=== PATIENT | male | born 1930 | race Caucasian/White ===

== ENCOUNTER 2016-11-26 04:56 | Inpatient (IN) | payer OTHER, BC ==
[2016-11-26] MEDS ORDERED: RAPID SEQUENCE INTUBATION KIT NR ONE (04:58)
--- NOTE | 2016-11-26 05:13 | PDOC ---
History of Present Illness - General History Source: EMS, [facility] Records Exam Limitations: Intubated, Unresponsive - History of Present Illness Initial Comments: 11/26/16 05:29 The patient is an 86 year old male resident of [facility], with a significant past medical history of diabetes mellitus, GI hemorrhage, chronic kidney disease, dementia, anemia, and suprapubic catheter, who presents to the emergency department BIBA unresponsive, with low oxygen saturation levels since earlier this morning. Per EMS, the patient was found in his apartment unresponsive this evening, with oxygen saturation levels at 71. [facility], the patient was alert and responsive at 03:59 this morning. Records state the patients suprapubic catheter was clogged yesterday, and a meraz catheter was inserted with little urine drainage. [place] records report the patient is on continuous oxygen at 2-3 L/min and has been very congested. The patients history is limited due to current clinical condition/ Allergies: None reported. Past Surgical History: None reported. PCP: Dr. Jon ([phone]) <Den Avalos - Last Filed: 11/26/16 05:57> <Oli Beard - Last Filed: 11/26/16 06:30> - General Chief Complaint: Respiratory Distress Stated Complaint: SOB Time Seen by Provider: 11/26/16 05:13 Past History <Den Avalos - Last Filed: 11/26/16 05:57> - Past Medical History Anemia: Yes Diabetes: Yes Disorders: Yes (suprapubic catheter) Thyroid Disease: No - Immunization History Immunization Up to Date: No - Psycho/Social/Smoking Cessation Hx Anxiety: No Suicidal Ideation: No Smoking History: Never smoked Have you smoked in the past 12 months: No Hx Alcohol Use: No Drug/Substance Use Hx: No Substance Use Type: None <Oli Beard - Last Filed: 11/26/16 06:30> - Past Medical History Allergies/Adverse Reactions: Allergies Allergy/AdvReac Type Severity Reaction Status Date / Time No Known Allergies Allergy Verified 11/26/16 05:17 Home Medications: Ambulatory Orders Ferrous Sulfate 325 mg PO BID 09/08/15 Metoprolol Tartrate 25 mg PO BID 09/08/15 Quetiapine Fumarate [Seroquel -] 25 mg PO HS 09/24/15 Ascorbic Acid [Vitamin C] 500 mg PO DAILY 12/29/15 Pantoprazole Sodium [Protonix] 40 mg PO BID 12/29/15 Acetaminophen [Tylenol] 650 mg PO PRN 03/14/16 Bisacodyl Suppository [Dulcolax Suppository -] 10 mg RC ONCE PRN 03/14/16 Magnesium Hydroxide [Milk of Magnesia] 30 ml PO PRN PRN 03/14/16 Petrolatum,White/Lanolin [Vitamin A & D Ointment] 454 gm TP BID 03/14/16 Quetiapine Fumarate [Seroquel -] 12.5 mg PO DAILY 03/14/16 Quetiapine Fumarate [Seroquel -] 25 mg PO DAILY 03/14/16 Vit A/Vitamin D3/E/Aloe V/Znox [Periguard Ointment] 1 appful TP BID 03/14/16 Nitrofurantoin Monohyd/M-Cryst [Macrobid -] 100 mg PO BID #20 capsule 05/18/16 Review of Systems - Review of Systems Able to Perform ROS?: No Comments:: 11/26/16 05:30 Unable to perform ROS due to clinical condition. <Den Avalos - Last Filed: 11/26/16 05:57> *Physical Exam - Vital Signs Last Vital Signs Temp Pulse Resp BP Pulse Ox 90 12 111/83 11/26/16 05:13 11/26/16 05:20 11/26/16 05:13 - Physical Exam Comments: 11/26/16 05:37 GENERAL: Unconcious. HEAD: No signs of trauma EYES: PERRLA, EOMI, sclera anicteric, conjunctiva clear ENT: Auricles normal inspection, hearing grossly normal, nares patent, oropharynx clear without exudates. Moist mucosa NECK: Normal ROM, supple, no lymphadenopathy, JVD, masses, or meningismus LUNGS: Shallow respiration. Bilateral rales, no wheezing or ronchi HEART: Sinus tachycardia. Normal S1 and S2, no murmurs, rubs or gallops ABDOMEN: Soft, nontender, normoactive bowel sounds. No guarding, no rebound. No masses EXTREMITIES: Currently not moving any extremities. No clubbing or cyanosis. No cords, erythema, or tenderness NEUROLOGICAL: Cranial nerves II through XII grossly intact. Responds to pain only from stimuli SKIN: Pale, does not feel warm. Dry, normal turgor, no rashes or lesions noted. <Den Avalos - Last Filed: 11/26/16 05:57> Heart Score/ECG Review - ECG Impressions Comment:: 11/26/16 05:57 Vent. Rate: 81 bpm IMPRESSION: Normal sinus rhythm with a right bundle branch block. <Den Avalos - Last Filed: 11/26/16 05:57> ED Treatment Course - LABORATORY CBC & Chemistry Diagram: 11/26/16 05:30 <Den Avalos - Last Filed: 11/26/16 05:57> - LABORATORY CBC & Chemistry Diagram: 11/26/16 06:00 11/26/16 05:30 <Oli Beard - Last Filed: 11/26/16 06:30> Medical Decision Making - Critical Care Time Total Critical Care Time (minutes): 60 Critical Care Statement: The care of this patient involved high complexity decision making to prevent further life threatening deterioration of the patient 's condition and/or to evalute & treat vital organ system(s) failure or risk of failure. - Medical Decision Making 11/26/16 05:39 Initial plan on this patient is to intubate. Patient was started on Etomidate, followed by 100 mg of succinylcholine and a 7.5 mm endotracheal tube. The CXR shows left lower and left middle lobe pneumonia. Septic protocol was followed. Nasogastric tube was passed, which reveals coffee ground aspirate. IV protonix started. Patient is blood type O-. Contacted blood bank for O- blood, because the patient is bleeding and hypotensive. Case discussed with ICU mail messenger contractor staff at 05:50. <Den Avalos - Last Filed: 11/26/16 05:57> - Critical Care Time Total Critical Care Time (minutes): 60 Critical Care Statement: The care of this patient involved high complexity decision making to prevent further life threatening deterioration of the patient 's condition and/or to evalute & treat vital organ system(s) failure or risk of failure. - Medical Decision Making 11/26/16 06:22 very critical, unconscious, responsive to painful stimuli, hypoxic 71%, no meningismus, lungs diffuse rales, abd slightly distended (beside US does not show a AAA), BP low getting blood 1 unit PRBC's (NG passed with >600cc dark blood), CXR shows large LLL and LML pneumonia, central line inserted. ABX's given. Patient was intubated on a vent. Meraz inserted. Accepted by the ICU. Discussed with Dr. Reaves. <Oli Beard - Last Filed: 11/26/16 06:30> *DC/Admit/Observation/Transfer - Attestations Scribe Attestion: 11/26/16 05:37 Documentation prepared by Den Avalos, acting as biomedical engineering technician for Oli Beard MD. <Den Avalos - Last Filed: 11/26/16 05:57> - Discharge Dispostion Admit: Yes <Oli Beard - Last Filed: 11/26/16 06:30> Diagnosis at time of Disposition: Sepsis, Pneumonia, Gastrointestinal hemorrhage - Discharge Dispostion Condition at time of disposition: Critical - Referrals Referrals: Abdulaziz Jon [Primary Care Provider] -
[2016-11-26] MEDS ORDERED: SUCCINYLCHOLINE CHLORIDE 200 MG/10 ML VIAL IVPUSH ONE (05:14)
[2016-11-26] MEDS ORDERED: ETOMIDATE 40 MG/20 ML VIAL IVPUSH ONE (05:14)
[2016-11-26] MEDS ORDERED: VANCOMYCIN 1,000 MG in DEXTROSE 5%-WATER - 250 ML IVPB ONE (05:19)
[2016-11-26] MEDS ORDERED: AZITHROMYCIN IVPB 500 MG in DEXTROSE 5%-WATER - 250 ML IVPB ONE (05:19)
[2016-11-26] MEDS ORDERED: PIPERACILLIN/TAZOB 3.375 GM/50 ML PRE-DOCKED IVPB ONE (05:20)
[2016-11-26] MEDS ORDERED: PANTOPRAZOLE SODIUM 40 MG in SODIUM CHLORIDE 100 ML IVPB ONE (05:22)
[2016-11-26] MEDS ORDERED: SODIUM CHLORIDE 500 ML IV STA ×2 (05:30→07:06)
[2016-11-26] MEDS ORDERED: VANCOMYCIN 1 GRAM (PRE-DOCKED) 250 ML IVPB ONE (05:32)
[2016-11-26] MEDS ORDERED: PANTOPRAZOLE SODIUM 100 ML IVPB ONE (05:32)
[2016-11-26] MEDS ORDERED: AZITHROMYCIN IVPB 250 ML IVPB ONE (05:32)
[2016-11-26] MEDS ORDERED: PIPERACILLIN/TAZOB 3.375 GM 50 ML IVPB ONE (05:33)
[2016-11-26] MEDS ORDERED: SODIUM CHLORIDE 1,000 ML IV STA (05:33)
[2016-11-26 06:00] LABS: ARTERIAL BLD GAS O2 SATURATION 97.1 % (90-98.9); ARTERIAL BLOOD GAS BASE EXCESS -8.3 meq/l (-2-2); ARTERIAL BLOOD GAS HCO3 16.8 meq/L (22-26); LPM/O2% 100; MECH. VENT. YES; PT. ON O2? YES; TYPE OF O2 VENT; VENT RATE 12; VT/PRESS 450
[2016-11-26] MEDS: MIDAZOLAM 100 MG in SODIUM CHLORIDE 100 ML IVPB SCH (06:00)
[2016-11-26 06:01] LABS: METHEMOGLOBIN 1.7 % (0.4-1.5)
[2016-11-26] MEDS ORDERED: NOREPINEPHRINE BITARTRATE 4 MG/4 ML ML IV ONE ×6 (06:04→21:57)
[2016-11-26 06:07] LABS: BASOPHIL 0.4 % (0-2.0); EOSINOPHIL 0.1 % (0-4.5); MCH 29.4 pg (25.7-33.7); MCHC 32.4 g/dl (32.0-35.9); MEAN CELL VOLUME 90.7 fl (80-96); MEAN PLT VOLUME 9.1 fl (7.5-11.1); NEUTROPHILS 81.2 % (42.8-82.8); PLATELET COUNT 475 K/MM3 (134-434); WHITE BLOOD COUNT 18.3 K/mm3 (4.0-10.0)
[2016-11-26 06:14] LABS: ALBUMIN 2.9 g/dl (3.4-5.0); ANION GAP 17 (8-16); BILIRUBIN,TOTAL 0.4 mg/dL (0.2-1.0); CALCIUM 9.2 mg/dL (8.5-10.1); CO2 18 mmol/L (21-32); CREATININE 3.2 mg/dL (0.7-1.3); GLUCOSE,RANDOM 138 mg/dL (74-106); SGOT/AST 15 U/L (15-37); SGPT/ALT 17 U/L (12-78); TOT PROT 6.9 g/dl (6.4-8.2)
[2016-11-26 06:16] LABS: ALK PHOS 98 U/L (45-117); TROPONIN I < 0.02 ng/ml (0.00-0.05)
--- NOTE | 2016-11-26 06:19 | CONSULT ---
Consult Consult Specialty:: Pulm/CC - History of Present Illness History of Present Illness: H&P limited due to clinical condition. Pt is an 86yr old man with PMHx of DM, dementia, PEG tube (reversed), suprapubic bladder catheter with recurrent UTIs, GI bleed and anemia. He presents from a residential unresponsive. Pt assessed in the ER. Pt intubated, agitated but poorly responsive off sedation, BP 70s/40s, HR irregular 80s with ~ 400mL coffee ground emesis from NGT, receiving PRBC and IVF. - History Source History Provided By: Medical Record Limitations to Obtaining History: Clinical Condition - Alcohol/Substance Use Hx Alcohol Use: No - Smoking History Smoking history: Never smoked Have you smoked in the past 12 months: No <Gina Jorgensen - Last Filed: 11/26/16 09:29> Home Medications <Oli Beard - Last Filed: 11/26/16 06:29> <Gina Jorgensen - Last Filed: 11/26/16 09:29> - Allergies Allergies/Adverse Reactions: Allergies Allergy/AdvReac Type Severity Reaction Status Date / Time No Known Allergies Allergy Verified 11/26/16 05:17 - Home Medications Home Medications: Ambulatory Orders Ferrous Sulfate 325 mg PO BID 09/08/15 Metoprolol Tartrate 25 mg PO BID 09/08/15 Quetiapine Fumarate [Seroquel -] 25 mg PO HS 09/24/15 Ascorbic Acid [Vitamin C] 500 mg PO DAILY 12/29/15 Pantoprazole Sodium [Protonix] 40 mg PO BID 12/29/15 Acetaminophen [Tylenol] 650 mg PO PRN 03/14/16 Bisacodyl Suppository [Dulcolax Suppository -] 10 mg RC ONCE PRN 03/14/16 Magnesium Hydroxide [Milk of Magnesia] 30 ml PO PRN PRN 03/14/16 Petrolatum,White/Lanolin [Vitamin A & D Ointment] 454 gm TP BID 03/14/16 Quetiapine Fumarate [Seroquel -] 12.5 mg PO DAILY 03/14/16 Quetiapine Fumarate [Seroquel -] 25 mg PO DAILY 03/14/16 Vit A/Vitamin D3/E/Aloe V/Znox [Periguard Ointment] 1 appful TP BID 03/14/16 Nitrofurantoin Monohyd/M-Cryst [Macrobid -] 100 mg PO BID #20 capsule 05/18/16 Family Disease History - Family Disease History Family History: Unable to Obtain <Gina Jorgensen - Last Filed: 11/26/16 09:29> Review of Systems Unable to obtain ROS, reason: KELLI <Gina Jorgensen - Last Filed: 11/26/16 09:29> Physical Exam Vital Signs: Vital Signs Temperature 99.4 F 11/26/16 05:15 Pulse Rate 95 H 11/26/16 06:20 Respiratory Rate 32 H 11/26/16 06:00 Blood Pressure 57/47 11/26/16 06:20 O2 Sat by Pulse Oximetry (%) 99 11/26/16 06:00 Labs: CBC, BMP 11/26/16 06:00 11/26/16 05:30 <Oli Beard - Last Filed: 11/26/16 06:29> Vital Signs: Initial physical assessment in the ER, assessed again in the ICU. Vital Signs Period Temp Pulse Resp BP Sys/Walton Pulse Ox Last 24 Hr 99.4 F 90-98 10-32 57-111/47-88 99-100 Intake & Output 11/23/16 11/24/16 11/25/16 11/26/16 23:59 23:59 23:59 23:59 Intake Total 2650 Output Total 50 Balance 2600 Weight 180 lb Constitutional: Yes: Mild Distress Eyes: Yes: PERRL Neck: Yes: Other (NGT with copious coffee ground emesis) Cardiovascular: Yes: Pulse Irregular, S1, S2 Respiratory: Yes: Intubated, Mechanically Ventilated, Rhonchi (L>R), Tachypnea Gastrointestinal: Yes: Abdomen, Obese, Distention, Hypoactive Bowel Sounds ( borborygmi) ...Rectal Exam: Yes: Other (pending guaiac) Renal/: Yes: Mattson Present (suprapubic and penile, <10ml each UOP) Musculoskeletal: Yes: Other (protruding hard mass on rt lower anterior rib, also on rt but smaller) Extremities: Yes: Cool Edema: Yes Edema: LUE: 1+, RUE: Trace Peripheral Pulses WNL: (weak bilateral pedal pulses) Integumentary: Yes: Other (pale, cool hands/feet) Wound/Incision: Yes: Other (rt femoral TLC) Neurological: Yes: Other (intubated, agitated) Psychiatric: Yes: Agitated Labs: CBC, BMP 11/26/16 06:00 <Gina Jorgensen - Last Filed: 11/26/16 09:29> Imaging - Results Chest X-ray: Image Reviewed <Gina Jorgensen - Last Filed: 11/26/16 09:29> Assessment/Plan Pt is an 86yr old man with PMHx including DM, dementia, PEG tube (now reversed) , suprapubic bladder catheter with recurrent UTIs, GI bleed and anemia. Now in the ICU for management of septic shock with associated respiratory failure secondary to HCAP, and metabolic acidosis in setting of TANESHA. Pulm: -Continue mechanical ventilation -SBT as able -FiO2 for saturation >94% -F/U official read of chest xray ID: HCAP, hx of proteus and ESBL in urine, both sensitive to Zosyn -Consult -F/U cultures -Empiric Vanc/Zosyn started in the ER -F/U lactic acid -f/u UA Cardiovascular -Volume resuscitate -Levophed for MAP 65-75 -f/u cardiac enzymes -f/u ekg -Hold home antihypertensives GI: GI bleed -Consult -Transfuse prn -PPI -NGT to LWS -f/u abdomen xray for distended abdomen Renal: Metabolic acidosis in setting of acute on chronic renal insufficiency -Volume resuscitate -Strict I/Os -Replete electrolytes prn -Monitor BUN/Cr -Renal dose medication Neuro -Pain management Endo: -BGM -Glycemic control Prophylactic -SCDs -Aspiration precautions <Gina Jorgensen - Last Filed: 11/26/16 09:29>
[2016-11-26] MEDS: NOREPINEPHRINE BITARTRATE 4,000 MCG in DEXTROSE 5%-WATER - 496 ML IV SCH ×4 (06:20→15:38)
[2016-11-26] MEDS ORDERED: LACTATED RINGERS SOLUTION 1,000 ML IV STA ×3 (06:54→11:31)
[2016-11-26 07:17] LABS: URINE APPEARANCE TURBID; URINE BILIRUBIN NEGATIVE (NEGATIVE); URINE COLOR AMBER; URINE GLUCOSE (UA) NEGATIVE (NEGATIVE); URINE KETONE TRACE (NEGATIVE); URINE NITRITE NEGATIVE (NEGATIVE); URINE UROBILINOGEN NEGATIVE E.U./dl (0.2-1.0)
[2016-11-26] MEDS ORDERED: ACETAMINOPHEN 1000 MG/100 ML VIAL (NON FORMULARY) IVPB PRN ×2 (07:27→17:05)
[2016-11-26 07:37] LABS: URINE BLOOD 1+ (NEGATIVE); URINE LEUK ESTERASE 3+ (NEGATIVE); URINE PROTEIN 2+ (NEGATIVE)
[2016-11-26 07:38] LABS: URINE BACTERIA MANY /hpf (NONE SEEN); URINE HYALINE CAST 20 /lpf; URINE MUCUS RARE; URINE RBC 54 /hpf (0-3); URINE WBC 856 /hpf (3-5)
[2016-11-26 08:19] LABS: MCH 28.7 pg (25.7-33.7); MCHC 32.4 g/dl (32.0-35.9); MEAN CELL VOLUME 88.7 fl (80-96); MEAN PLT VOLUME 8.2 fl (7.5-11.1); PLATELET COUNT 422 K/MM3 (134-434); RDW 15.3 % (11.9-15.9); WHITE BLOOD COUNT 25.1 K/mm3 (4.0-10.0)
[2016-11-26 08:32] LABS: INR 1.19 (0.82-1.09); PROTHROMBIN TIME (PATIENT) 13.1 SEC (9.98-11.88)
[2016-11-26 08:35] LABS: ACTIVATED PTT 29.9 SECONDS (26.9-34.4)
--- NOTE | 2016-11-26 08:37 | MSN ---
Progress Note (SOAP) - Subjective Chief Complaint: Found unresponsive with low O2 saturation History of Present Illness: Pt is unresponsive, HPI obtained from medical records. Pt is a 86 yo white male with a PMHx of DM, CKD, dementia, anemia, GI hemorrhage , and suprapubic catheter placement with recurrent UTIs, that was BIBA to the ER early this morning after being found unresponsive in his fpc apt with a low oxygen saturation of 71%. Per [place] records, the pt suprapubic catheter was clogged yesterday and subsequently a meraz catheter was placed with minimal output. Pt was intubated in the ER with BPs in the 50-70s/40s, HR in the 90s, afebrile, and a output of ~400mL coffee ground emesis via NGT. Pt is currently on IV pressers, IV sedation, and IVF. - Current Medications Current Medications: Active Medications Acetaminophen (Ofirmev Injection -) 1,000 mg IVPB ONCE PRN PRN Reason: FEVER Chlorhexidine Gluconate (Hibiclens For Decolonization -) 1 applic TP HS NATHALIA Norepinephrine Bitartrate 4, (000 mcg/ Dextrose) 500 mls @ 37.5 mls/hr IV TITR NATHALIA; 5 MCG/MIN PRN Reason: Protocol Last Admin: 11/26/16 06:20 Dose: 75 mls/hr Midazolam HCl 100 mg/ Sodium (Chloride) 100 mls @ 10 mls/hr IVPB TITR NATHALIA; 10 MG/HR PRN Reason: Protocol Last Admin: 11/26/16 06:00 Dose: 10 mls/hr Fentanyl 500 mcg/ Dextrose 100 mls @ 5 mls/hr IJ TITR NATHALIA PRN Reason: 25 MCG/HR Lactated Ringer's (Lactated Ringers Solution) 1,000 mls @ 100 mls/hr IV ASDIR NATHALIA Pantoprazole Sodium (Protonix 40mg Ivpb (Pre-Docked)) 100 mls @ 200 mls/hr IVPB BID NATHALIA Mupirocin (Bactroban Ointment (For Decolonization) -) 1 applic NS BID NATHALIA Stop: 12/01/16 09:59 - Objective Vital Signs: Vital Signs Temperature 99.1 F 11/26/16 07:30 Pulse Rate 116 H 11/26/16 07:30 Respiratory Rate 24 11/26/16 07:30 Blood Pressure 96/57 11/26/16 07:30 O2 Sat by Pulse Oximetry (%) 99 11/26/16 07:10 Constitutional: Yes: Other (Unresponsive) HENT: Yes: WNL, Atraumatic, Normocephalic. No: Epistaxis, Pharyngeal Erythema, Rhinnorhea Neck: Yes: WNL, Trachea Midline. No: Lymphadenopathy Cardiovascular: Yes: Tachycardia, S1, S2. No: JVD, Murmur Respiratory: Yes: Intubated, Mechanically Ventilated, Rhonchi (Left lung leggett) Gastrointestinal: Yes: Abdomen, Obese, Distention, Hypoactive Bowel Sounds ...Rectal Exam: Yes: Other (Pending guaiac) Genitourinary: Yes: Meraz Present (Suprapubic and penile meraz), Hematuria Extremities: Yes: Cold, Cool Edema: No (No edema in the BL LE) Integumentary: No: Petechiae, Venous Stasis Changes Neurological: Yes: Lethargy, Unresponsive, Other (Pt is unresponsive to vocal, tactile, and painful stimuli.). No: WNL, Alert, Oriented ...Motor Strength: No: WNL Psychiatric: No: WNL Labs Lab Results: Laboratory Last Values WBC 25.1 K/mm3 (4.0-10.0) H D 11/26/16 08:00 RBC 3.72 M/mm3 (4.00-5.60) L 11/26/16 08:00 Hgb 10.7 GM/dL (11.7-16.9) L 11/26/16 08:00 Hct 33.0 % (35.4-49) L 11/26/16 08:00 MCV 88.7 fl (80-96) 11/26/16 08:00 MCHC 32.4 g/dl (32.0-35.9) 11/26/16 08:00 RDW 15.3 % (11.9-15.9) 11/26/16 08:00 Plt Count 422 K/MM3 (134-434) 11/26/16 08:00 MPV 8.2 fl (7.5-11.1) 11/26/16 08:00 Neutrophils % 81.2 % (42.8-82.8) 11/26/16 06:00 Lymphocytes % 12.4 % (8-40) 11/26/16 06:00 Monocytes % 5.9 % (3.8-10.2) 11/26/16 06:00 Eosinophils % 0.1 % (0-4.5) 11/26/16 06:00 Basophils % 0.4 % (0-2.0) 11/26/16 06:00 INR 1.19 (0.82-1.09) H 11/26/16 08:00 PTT (Actin FS) 29.9 SECONDS (26.9-34.4) 11/26/16 08:00 Anticoagulation Therapy Y 11/26/16 05:14 Puncture Site Md puncture 11/26/16 05:14 ABG pH 7.30 (7.35-7.45) L 11/26/16 05:14 ABG pCO2 at Pt Temp 35.1 mmHg (35-45) 11/26/16 05:14 ABG pO2 at Pt Temp 122.0 mmHg (68-100) H 11/26/16 05:14 ABG HCO3 16.8 meq/L (22-26) L 11/26/16 05:14 ABG O2 Sat (Measured) 97.1 % (90-98.9) 11/26/16 05:14 ABG O2 Content 14.4 % vol (15-22) L 11/26/16 05:14 ABG Base Excess -8.3 meq/l (-2-2) L 11/26/16 05:14 Linden Test Not applicable 11/26/16 05:14 Carboxyhemoglobin 1.4 gm% (0.5-2.0) 11/26/16 05:15 Methemoglobin 1.7 % (0.4-1.5) H 11/26/16 05:15 O2 Delivery Device Vent 11/26/16 05:14 Oxygen Flow Rate 100 11/26/16 05:14 Vent Mode A/c 11/26/16 05:14 Vent Rate 12 11/26/16 05:14 Mechanical Rate Yes 11/26/16 05:14 PEEP 0.0 cmH2O 11/26/16 05:14 Pressure Support Vent 450 11/26/16 05:14 Sodium 149 mmol/L (136-145) H 11/26/16 05:30 Potassium 5.4 mmol/L (3.5-5.1) H 11/26/16 05:30 Chloride 114 mmol/L (98-107) H 11/26/16 05:30 Carbon Dioxide 18 mmol/L (21-32) L 11/26/16 05:30 Anion Gap 17 (8-16) H 11/26/16 05:30 BUN 54 mg/dL (7-18) H 11/26/16 05:30 Creatinine 3.2 mg/dL (0.7-1.3) H 11/26/16 05:30 Creat Clearance w eGFR 18.47 (>60) 11/26/16 05:30 Random Glucose 138 mg/dL (74-106) H 11/26/16 05:30 Lactic Acid 6.620 mmol/L (0.4-2.0) H* 11/26/16 05:30 Calcium 9.2 mg/dL (8.5-10.1) 11/26/16 05:30 Total Bilirubin 1.0 mg/dL (0.2-1.0) D 11/26/16 08:00 AST 15 U/L (15-37) 11/26/16 05:30 ALT 17 U/L (12-78) 11/26/16 05:30 Alkaline Phosphatase 98 U/L (45-117) 11/26/16 05:30 Creatine Kinase 45 IU/L (39-308) 11/26/16 05:30 Troponin I < 0.02 ng/ml (0.00-0.05) 11/26/16 05:30 Total Protein 6.9 g/dl (6.4-8.2) 11/26/16 05:30 Albumin 2.9 g/dl (3.4-5.0) L 11/26/16 05:30 Urine Color Sharron 11/26/16 07:05 Urine Appearance Turbid 11/26/16 07:05 Urine pH 5.0 (5.0-8.0) 11/26/16 07:05 Ur Specific Allen 1.020 (1.001-1.035) 11/26/16 07:05 Urine Protein 2+ (NEGATIVE) H 11/26/16 07:05 Urine Glucose (UA) Negative (NEGATIVE) 11/26/16 07:05 Urine Ketones Trace (NEGATIVE) H 11/26/16 07:05 Urine Blood 1+ (NEGATIVE) H 11/26/16 07:05 Urine Nitrite Negative (NEGATIVE) 11/26/16 07:05 Urine Bilirubin Negative (NEGATIVE) 11/26/16 07:05 Urine Urobilinogen Negative E.U./dl (0.2-1.0) 11/26/16 07:05 Ur Leukocyte Esterase 3+ (NEGATIVE) H 11/26/16 07:05 Urine RBC 54 /hpf (0-3) 11/26/16 07:05 Urine WBC 856 /hpf (3-5) 11/26/16 07:05 Ur Epithelial Cells Rare /hpf (FEW) 11/26/16 07:05 Urine Bacteria Many /hpf (NONE SEEN) 11/26/16 07:05 Hyaline Casts 20 /lpf 11/26/16 07:05 Urine Mucus Rare 11/26/16 07:05 Blood Type O POSITIVE 11/26/16 05:55 Antibody Screen Negative 11/26/16 05:30 Crossmatch See Detail 11/26/16 05:30 Imaging - Results Chest X-ray: Report Reviewed, Image Reviewed Problem List - Problems (1) GI bleed Code(s): K92.2 - GASTROINTESTINAL HEMORRHAGE, UNSPECIFIED (2) Pneumonia Code(s): J18.9 - PNEUMONIA, UNSPECIFIED ORGANISM (3) Sepsis Code(s): A41.9 - SEPSIS, UNSPECIFIED ORGANISM (4) Suprapubic catheter dysfunction Code(s): T83.018A - BREAKDOWN (MECHANICAL) OF OTHER URINARY CATHETER, INIT Qualifiers: Encounter type: initial encounter Qualified Code(s): T83.018A - Breakdown (mechanical) of other indwelling urethral catheter, initial encounter (5) Urinary tract infection Code(s): N39.0 - URINARY TRACT INFECTION, SITE NOT SPECIFIED Qualifiers: Urinary tract infection type: site unspecified Hematuria presence: without hematuria Qualified Code(s): N39.0 - Urinary tract infection, site not specified Assessment/Plan Pt is an 86 yo M with PMHx including DM, dementia, suprapubic bladder catheter with recurrent UTIs, GI bleed, and anemia. Currently in the ICU for management of septic shock with associated respiratory failure secondary to HCAP, and metabolic acidosis in setting of TANESHA. 1. Pulmonary -Cont. mechanical ventilation in order to maintain O2 sat >94% 2. ID: HCAP, UTI (Hx of ESBL sensitive to Zosyn) -IV ABX (azithromycin, zosyn, vancomycin) given in the ER -Consult -F/U urine Cx -F/U blood Cx -Repeat lactic acid 3. Metabolic acidosis secondary to TANESHA on CKD -Cont. IVF to volume resuscitate -Repeat UA -Monitor BUN/Cr -Monitor BMP, replete electrolytes as needed 4. GI bleed -Cont. NGT to LWS -Protonix 40mg IVPB -PRBCs ordered, transfuse PRN Dustin Duncan, MS3
[2016-11-26] MEDS: FENTANYL INJECTION 500 MCG in DEXTROSE 5%-WATER - 90 ML IJ SCH (08:40)
[2016-11-26] MEDS: LACTATED RINGERS SOLUTION 1,000 ML IV SCH (08:55)
[2016-11-26 09:10] VITALS: BMI 23.6
--- NOTE | 2016-11-26 10:58 | HP ---
<Dale Chowdhury - Last Filed: 11/26/16 13:47> CHIEF COMPLAINT: low oxygen saturation/unresponsive PCP: Dr. Jon ([phone]) HISTORY OF PRESENT ILLNESS: History obtained from previous notes since pt is intubated. 86 y/o M from [facility] w/PMH of DM, GI hemorrhage, ckd, dementia, anemia, suprapubic catheter presented to the ER due to being found unresponsive with O2 sat of 71%. Pt's suprapubic cath was clogged yesterday as per [place] records. Pt uses O2 at [place] continously (2-3L/min). Pt was last noted to be alert and responsive at 4 am last night. Currently pt is in ICU, intubated, sedated, and on ventilator, on pressors. In ER pt had CXR which showed LLL infiltrates, NGT placed which drained coffee ground emesis, IV protonix started. ER course was notable for: (1) Intubation, EKG, CXR (2) NGT, meraz insertion (3) PAST MEDICAL HISTORY: DM, GI hemorrhage, ckd, dementia, anemia, suprapubic catheter PAST SURGICAL HISTORY: unobtainable Social History: unobtainable Smoking: Alcohol: Drugs: Allergies No Known Allergies Allergy (Verified 11/26/16 05:17) HOME MEDICATIONS: Home Medications Medication Instructions Recorded Acetaminophen [Tylenol -] 650 mg PO Q6H PRN 11/26/16 Ascorbic Acid [Vitamin C -] 500 mg PO DAILY 11/26/16 Bisac-Evac 10 mg WI DAILY PRN 11/26/16 Ferrous Sulfate 325 mg PO DAILY 11/26/16 Magnesium Hydroxide [Milk of 30 ml PO DAILY PRN 11/26/16 Magnesia -] Metoprolol Tartrate 25 mg PO BID 11/26/16 Nitroglycerin Sublingual 0.4 mg SL PRN PRN 11/26/16 [Nitrostat -] Olanzapine 5 mg PO 0900,1300 11/26/16 Olanzapine [Zyprexa -] 5 mg PO 1700,2100 11/26/16 Omeprazole 1 cap PO 0630,1630 11/26/16 REVIEW OF SYSTEMS CONSTITUTIONAL: Absent: fever, chills, diaphoresis, generalized weakness, malaise, loss of appetite, weight change HEENT: Absent: rhinorrhea, nasal congestion, throat pain, throat swelling, difficulty swallowing, mouth swelling, ear pain, eye pain, visual changes CARDIOVASCULAR: Absent: chest pain, syncope, palpitations, irregular heart rate, lightheadedness , peripheral edema RESPIRATORY: Absent: cough, shortness of breath, dyspnea with exertion, orthopnea, wheezing, stridor, hemoptysis GASTROINTESTINAL: Absent: abdominal pain, abdominal distension, nausea, vomiting, diarrhea, constipation, melena, hematochezia GENITOURINARY: Absent: dysuria, frequency, urgency, hesitancy, hematuria, flank pain, genital pain MUSCULOSKELETAL: Absent: myalgia, arthralgia, joint swelling, back pain, neck pain SKIN: Absent: rash, itching, pallor HEMATOLOGIC/IMMUNOLOGIC: Absent: easy bleeding, easy bruising, lymphadenopathy, frequent infections ENDOCRINE: Absent: unexplained weight gain, unexplained weight loss, heat intolerance, cold intolerance NEUROLOGIC: Unresponsive Absent: headache, focal weakness or paresthesias, dizziness, unsteady gait, seizure, mental status changes, bladder or bowel incontinence PSYCHIATRIC: Absent: anxiety, depression, suicidal or homicidal ideation, hallucinations. PHYSICAL EXAMINATION Vital Signs - 24 hr 11/26/16 11/26/16 11/26/16 06:45 07:00 07:07 Temperature 99.4 F Pulse Rate 122 H Pulse Rate [ 116 H Apical] Respiratory 27 H 22 24 Rate Blood Pressure 96/59 Blood Pressure 128/69 [Right Arm] O2 Sat by Pulse 100 Oximetry (%) 11/26/16 11/26/16 11/26/16 07:10 07:30 08:00 Temperature 99.1 F 98.5 F Pulse Rate 112 H 116 H 120 H Pulse Rate [ Apical] Respiratory 24 17 Rate Blood Pressure 96/57 82/46 Blood Pressure [Right Arm] O2 Sat by Pulse 99 Oximetry (%) 11/26/16 11/26/16 11/26/16 08:45 08:46 08:48 Temperature Pulse Rate 120 H Pulse Rate [ Apical] Respiratory 17 Rate Blood Pressure 82/40 Blood Pressure [Right Arm] O2 Sat by Pulse 94 L 94 L Oximetry (%) 11/26/16 11/26/16 11/26/16 09:03 09:30 09:46 Temperature 98.8 F 98.1 F Pulse Rate 120 H 122 H 122 H Pulse Rate [ Apical] Respiratory 17 23 Rate Blood Pressure 82/40 83/58 83/58 Blood Pressure [Right Arm] O2 Sat by Pulse Oximetry (%) 11/26/16 11/26/16 10:00 10:36 Temperature 98.1 F Pulse Rate 127 H 127 H Pulse Rate [ Apical] Respiratory 32 H Rate Blood Pressure 66/31 53/43 Blood Pressure [Right Arm] O2 Sat by Pulse Oximetry (%) GENERAL: Sedated, on ventilator HEAD: Normal with no signs of trauma. BG EYES: Pupils equal, round and reactive to light, extraocular movements intact, sclera anicteric, conjunctiva clear NECK: Normal range of motion, supple without lymphadenopathy, JVD, or masses. LUNGS: Auscultated anteriorly, mechanically ventilated, rhonchi on L. HEART: Tachycardic, irregularly irregular. ABDOMEN: Soft, nontender, distented, hypoactive bowel sounds, no guarding, no rebound, no masses. LOWER EXTREMITIES: Cool to touch feet. R femoral line in place. NEUROLOGICAL: Sedated. PSYCHIATRIC: Sedated. SKIN: Warm, dry, normal turgor, no rashes or lesions noted. Laboratory Results - last 24 hr 11/26/16 11/26/16 11/26/16 07:05 08:00 08:00 WBC RBC Hgb Hct MCV MCHC RDW Plt Count MPV INR 1.19 H PTT (Actin FS) 29.9 Total Bilirubin 1.0 D Urine Color Sharron Urine Appearance Turbid Urine pH 5.0 Ur Specific Tyler 1.020 Urine Protein 2+ H Urine Glucose (UA) Negative Urine Ketones Trace H Urine Blood 1+ H Urine Nitrite Negative Urine Bilirubin Negative Urine Urobilinogen Negative Ur Leukocyte Esterase 3+ H Urine RBC 54 Urine WBC 856 Ur Epithelial Cells Rare Urine Bacteria Many Hyaline Casts 20 Urine Mucus Rare 11/26/16 08:00 WBC 25.1 H D RBC 3.72 L Hgb 10.7 L Hct 33.0 L MCV 88.7 MCHC 32.4 RDW 15.3 Plt Count 422 MPV 8.2 INR PTT (Actin FS) Total Bilirubin Urine Color Urine Appearance Urine pH Ur Specific Tyler Urine Protein Urine Glucose (UA) Urine Ketones Urine Blood Urine Nitrite Urine Bilirubin Urine Urobilinogen Ur Leukocyte Esterase Urine RBC Urine WBC Ur Epithelial Cells Urine Bacteria Hyaline Casts Urine Mucus Microbiology 11/26/16 07:30 Nasopharyngeal Swab Respiratory Virus Panel - Preliminary 11/26/16 07:30 Nasopharyngeal Swab Influenza Types A,B Antigen (BEATRIZ) - Final 11/26/16 07:30 Nasopharyngeal Swab - Final Imaging: Abd XR: Distended bowel. Possible small bowel or partial small obstruction. CXR: L sided infiltrates; NGT in place Active Medications Acetaminophen (Ofirmev Injection -) 1,000 mg IVPB ONCE PRN PRN Reason: FEVER Chlorhexidine Gluconate (Hibiclens For Decolonization -) 1 applic TP HS NATHALIA Norepinephrine Bitartrate 4, (000 mcg/ Dextrose) 500 mls @ 37.5 mls/hr IV TITR NATHALIA; 5 MCG/MIN PRN Reason: Protocol Last Admin: 11/26/16 12:30 Dose: 150 mls/hr Midazolam HCl 100 mg/ Sodium (Chloride) 100 mls @ 10 mls/hr IVPB TITR NATHALIA; 10 MG/HR PRN Reason: Protocol Last Titration: 11/26/16 10:30 Dose: 0 mg/hr Fentanyl 500 mcg/ Dextrose 100 mls @ 5 mls/hr IJ TITR NATHALIA PRN Reason: 25 MCG/HR Last Admin: 11/26/16 08:40 Dose: 5 mls/hr Lactated Ringer's (Lactated Ringers Solution) 1,000 mls @ 100 mls/hr IV ASDIR NATHALIA Last Admin: 11/26/16 08:55 Dose: 100 mls/hr Pantoprazole Sodium 80 mg/ (Sodium Chloride) 100 mls @ 10 mls/hr IVPB Q10H NATHALIA PRN Reason: 8 MG/HR Piperacillin Sod/Tazobactam Sod (Zosyn 2.25gm Ivpb (Pre-Docked)) 50 mls @ 100 mls/hr IVPB Q8H-IV NATHALIA Mupirocin (Bactroban Ointment (For Decolonization) -) 1 applic NS BID NATHALIA Stop: 12/01/16 09:59 Last Admin: 11/26/16 13:18 Dose: 1 applic ASSESSMENT/PLAN: 86 y/o M from [facility] w/PMH of DM, GI hemorrhage, ckd, dementia, anemia, suprapubic catheter presented to the ER due to being found unresponsive with O2 sat of 71%. -Severe sepsis secondary to UTI vs PNA -WBC 25.1, tachycardic -received vanco/zosyn/azithro in ER -c/w vanco/zosyn as per ID -on levophed 14 mcg/min; LR@ 100ml/hr; keep MAP>65 -UA: 3+ LE, 856 WBC; hx of proteus and ESBL in urine in past -Lactic acid: 5.255; trending down, continue to monitor -CXR shows L sided infiltrates -f/u BCx, UCx, CXR in AM; Resp Virus Panel -Rapid Flu negative -ID on board -CK-MB elevated most likely secondary to demand ischemia -Acute Respiratory failure secondary to PNA / sepsis -CXR shows L sided infiltrates -on ventilator. sedated on midazolam and fentanyl -c/w vanco/zosyn -f/u SpCx -ABG in AM, CXR in AM -sedation vacations in AM -Anemia secondary to Upper GI bleed -coffee ground aspirate via NGT -Recommend starting pt on protonix drip -Abd XR: Distended bowel. Possible small bowel or partial small obstruction. -Hgb: 10.7 currently, no baseline available in charts -received 1 unit PRBC; f/u CBC -TANESHA on CKD secondary to sepsis -BUN/Cr: 54/3.2 -No baseline Cr in charts -monitor BUN/Cr -DM -Monitor BGMs -HTN -hold anti-hypertensives (metoprolol tartrate 25 mg bid) in light of septic shock -FEN -LR @ 100 ml/hr; keep MAP>65 -hypernatremia, hyperkalemia, hyperchloremia, monitor lytes, monitor tele -NPO -Dispo: -Admit to ICU Problem List - Problem (1) GI bleed Code(s): K92.2 - GASTROINTESTINAL HEMORRHAGE, UNSPECIFIED (2) Multiple drug resistant organism (MDRO) culture positive Code(s): Z16.24 - RESISTANCE TO MULTIPLE ANTIBIOTICS (3) Pneumonia Code(s): J18.9 - PNEUMONIA, UNSPECIFIED ORGANISM (4) Sepsis Code(s): A41.9 - SEPSIS, UNSPECIFIED ORGANISM (5) Urinary tract infection Code(s): N39.0 - URINARY TRACT INFECTION, SITE NOT SPECIFIED Qualifiers: Urinary tract infection type: site unspecified Hematuria presence: without hematuria Qualified Code(s): N39.0 - Urinary tract infection, site not specified Visit type - Emergency Visit Emergency Visit: Yes ED Registration Date: 11/26/16 Care time: The patient presented to the Emergency Department on the above date and was hospitalized for further evaluation of their emergent condition. - New Patient This patient is new to me today: Yes Date on this admission: 11/26/16 - Critical Care Critical Care patient: Yes Total Critical Care Time (in minutes): 45 Critical Care Statement: The care of this patient involved high complexity decision making to prevent further life threatening deterioration of the patient 's condition and/or to evalute & treat vital organ system(s) failure or risk of failure. <Alireza Villalta - Last Filed: 11/26/16 18:49> ATTENDING PHYSICIAN STATEMENT I saw and evaluated the patient. I reviewed the resident's note and discussed the case with the resident. I agree with the resident's findings and plan as documented. SUBJECTIVE: seen and evaluated at the bedside OBJECTIVE: intubated and sedated ASSESSMENT AND PLAN: 86 y/o M from [facility] w/PMH of DM, GI hemorrhage, ckd, dementia, anemia, suprapubic catheter admitted for septic shock possibly due to SBP Septic Shock -pt remains on pressors and BP has been difficult to maintain -cont IVF -now on zosyn -follow up cultures -GI consult appreciated; recommendation is for surgical evaluation Acute bood loss anemia due to upperGI bleed -has had persistant coffee grounds in OG tube -trend Hb and transfuse as needed -GI consult appreciated; recommendation is for surgical evaluation Dispo -given age and multiple comorbidities prognosis is poor at this time
[2016-11-26 11:48] LABS: TROPONIN I 0.08 ng/ml (0.00-0.05)
[2016-11-26] MEDS ORDERED: INFLUENZA VACCINE 45 MCG/0.5 ML (MDV 16-17) IM ONE (12:00)
--- NOTE | 2016-11-26 12:16 | PN ---
Teaching Attending Note Name of Resident: Alber Rivera ATTENDING PHYSICIAN STATEMENT I saw and evaluated the patient. I reviewed the resident's note and discussed the case with the resident. I agree with the resident's findings and plan as documented. SUBJECTIVE: Patient seen and examined in the ICU. Intubated and poorly responsive. Significant dark/coffee ground material from NGT. Refractory shock on NE. Aggressive IVF AC Mode of vent. Intake & Output 11/23/16 11/24/16 11/25/16 11/26/16 23:59 23:59 23:59 23:59 Intake Total 5150 Output Total 810 Balance 4340 Weight 165 lb Last Vital Signs Temp Pulse Resp BP Pulse Ox 98.1 F 118 H 34 H 69/51 92 L 11/26/16 10:00 11/26/16 11:34 11/26/16 11:50 11/26/16 11:34 11/26/16 10:20 Active Medications Acetaminophen (Ofirmev Injection -) 1,000 mg IVPB ONCE PRN PRN Reason: FEVER Chlorhexidine Gluconate (Hibiclens For Decolonization -) 1 applic TP HS NATHALIA Norepinephrine Bitartrate 4, (000 mcg/ Dextrose) 500 mls @ 37.5 mls/hr IV TITR NATHALIA; 5 MCG/MIN PRN Reason: Protocol Last Admin: 11/26/16 11:34 Dose: 150 mls/hr Midazolam HCl 100 mg/ Sodium (Chloride) 100 mls @ 10 mls/hr IVPB TITR NATHALIA; 10 MG/HR PRN Reason: Protocol Last Titration: 11/26/16 10:30 Dose: 0 mg/hr Fentanyl 500 mcg/ Dextrose 100 mls @ 5 mls/hr IJ TITR NATHALIA PRN Reason: 25 MCG/HR Last Admin: 11/26/16 08:40 Dose: 5 mls/hr Lactated Ringer's (Lactated Ringers Solution) 1,000 mls @ 100 mls/hr IV ASDIR NATHALIA Last Admin: 11/26/16 08:55 Dose: 100 mls/hr Lactated Ringer's (Lactated Ringers Solution) 1,000 mls @ 1,000 mls/hr IV ONCE STA Stop: 11/26/16 12:28 Last Admin: 11/26/16 11:33 Dose: 1,000 mls/hr Lactated Ringer's (Lactated Ringers Solution) 1,000 mls @ 1,000 mls/hr IV ONCE STA Stop: 11/26/16 12:30 Pantoprazole Sodium 80 mg/ (Sodium Chloride) 100 mls @ 10 mls/hr IVPB Q10H NATHALIA PRN Reason: 8 MG/HR Mupirocin (Bactroban Ointment (For Decolonization) -) 1 applic NS BID NATHALIA Stop: 12/01/16 09:59 Constitutional: Yes: Intubated and poorly responsive Eyes: Yes: PERRL Neck: Yes: Other (NGT with copious coffee ground emesis) Cardiovascular: Yes: Pulse Irregular, S1, S2 Respiratory: Yes: Intubated, Mechanically Ventilated, Rhonchi (L>R), Tachypnea Gastrointestinal: Yes: Abdomen, Obese, Distention, Hypoactive Bowel Sounds ...Rectal Exam: Yes: (+) guaiac Renal/: Yes: Mattson Present (suprapubic and penile) Musculoskeletal: Yes: Other (protruding hard mass on rt lower anterior rib) Extremities: Yes: Cool/cold Edema: Yes Edema: LUE: 1+, RUE: Trace Peripheral Pulses WNL: (weak bilateral pedal pulses) Integumentary: Yes: Other (pale, cool hands/feet) Wound/Incision: Yes: Other (rt femoral TLC) Neurological: Yes: Other (poorly responsive) Labs: Laboratory Results - last 24 hr 11/26/16 11/26/16 11/26/16 05:14 05:15 05:30 WBC RBC Hgb Hct MCV MCHC RDW Plt Count MPV Neutrophils % Lymphocytes % Monocytes % Eosinophils % Basophils % Band Neutrophils Differential Comment Reactive Lymphocytes INR PTT (Actin FS) Anticoagulation Therapy Y Puncture Site Md puncture ABG pH 7.30 L ABG pCO2 at Pt Temp 35.1 ABG pO2 at Pt Temp 122.0 H ABG HCO3 16.8 L ABG O2 Sat (Measured) 97.1 ABG O2 Content 14.4 L ABG Base Excess -8.3 L Linden Test Not applicable Carboxyhemoglobin 1.4 Methemoglobin 1.7 H O2 Delivery Device Vent Oxygen Flow Rate 100 Vent Mode A/c Vent Rate 12 Mechanical Rate Yes PEEP 0.0 Pressure Support Vent 450 Sodium 149 H Potassium 5.4 H Chloride 114 H Carbon Dioxide 18 L Anion Gap 17 H BUN 54 H Creatinine 3.2 H Creat Clearance w eGFR 18.47 Random Glucose 138 H Lactic Acid Calcium 9.2 Total Bilirubin 0.4 AST 15 ALT 17 Alkaline Phosphatase 98 Creatine Kinase 45 CK-MB (CK-2) Troponin I < 0.02 Total Protein 6.9 Albumin 2.9 L Urine Color Urine Appearance Urine pH Ur Specific [place] Urine Protein Urine Glucose (UA) Urine Ketones Urine Blood Urine Nitrite Urine Bilirubin Urine Urobilinogen Ur Leukocyte Esterase Urine RBC Urine WBC Ur Epithelial Cells Urine Bacteria Hyaline Casts Urine Mucus Blood Type Antibody Screen Crossmatch 11/26/16 11/26/16 11/26/16 05:30 05:30 05:55 WBC RBC Hgb Hct MCV MCHC RDW Plt Count MPV Neutrophils % Lymphocytes % Monocytes % Eosinophils % Basophils % Band Neutrophils Differential Comment Reactive Lymphocytes INR PTT (Actin FS) Anticoagulation Therapy Puncture Site ABG pH ABG pCO2 at Pt Temp ABG pO2 at Pt Temp ABG HCO3 ABG O2 Sat (Measured) ABG O2 Content ABG Base Excess Linden Test Carboxyhemoglobin Methemoglobin O2 Delivery Device Oxygen Flow Rate Vent Mode Vent Rate Mechanical Rate PEEP Pressure Support Vent Sodium Potassium Chloride Carbon Dioxide Anion Gap BUN Creatinine Creat Clearance w eGFR Random Glucose Lactic Acid 6.620 H* Calcium Total Bilirubin AST ALT Alkaline Phosphatase Creatine Kinase CK-MB (CK-2) Troponin I Total Protein Albumin Urine Color Urine Appearance Urine pH Ur Specific [place] Urine Protein Urine Glucose (UA) Urine Ketones Urine Blood Urine Nitrite Urine Bilirubin Urine Urobilinogen Ur Leukocyte Esterase Urine RBC Urine WBC Ur Epithelial Cells Urine Bacteria Hyaline Casts Urine Mucus Blood Type O POSITIVE O POSITIVE Antibody Screen Negative Crossmatch See Detail 11/26/16 11/26/16 11/26/16 06:00 07:05 08:00 WBC 18.3 H RBC 3.48 L Hgb 10.2 L Hct 31.6 L MCV 90.7 MCHC 32.4 RDW 14.0 Plt Count 475 H MPV 9.1 Neutrophils % 81.2 Lymphocytes % 12.4 Monocytes % 5.9 Eosinophils % 0.1 Basophils % 0.4 Band Neutrophils Differential Comment Reactive Lymphocytes INR 1.19 H PTT (Actin FS) 29.9 Anticoagulation Therapy Puncture Site ABG pH ABG pCO2 at Pt Temp ABG pO2 at Pt Temp ABG HCO3 ABG O2 Sat (Measured) ABG O2 Content ABG Base Excess Linden Test Carboxyhemoglobin Methemoglobin O2 Delivery Device Oxygen Flow Rate Vent Mode Vent Rate Mechanical Rate PEEP Pressure Support Vent Sodium Potassium Chloride Carbon Dioxide Anion Gap BUN Creatinine Creat Clearance w eGFR Random Glucose Lactic Acid Calcium Total Bilirubin AST ALT Alkaline Phosphatase Creatine Kinase CK-MB (CK-2) Troponin I Total Protein Albumin Urine Color Sharron Urine Appearance Turbid Urine pH 5.0 Ur Specific [place] 1.020 Urine Protein 2+ H Urine Glucose (UA) Negative Urine Ketones Trace H Urine Blood 1+ H Urine Nitrite Negative Urine Bilirubin Negative Urine Urobilinogen Negative Ur Leukocyte Esterase 3+ H Urine RBC 54 Urine WBC 856 Ur Epithelial Cells Rare Urine Bacteria Many Hyaline Casts 20 Urine Mucus Rare Blood Type Antibody Screen Crossmatch 11/26/16 11/26/16 11/26/16 08:00 08:00 10:30 WBC 25.1 H D RBC 3.72 L Hgb 10.7 L Hct 33.0 L MCV 88.7 MCHC 32.4 RDW 15.3 Plt Count 422 MPV 8.2 Neutrophils % 80.0 Lymphocytes % 5.0 L D Monocytes % 5.0 Eosinophils % Basophils % Band Neutrophils 7.0 Differential Comment Manual diff done Reactive Lymphocytes 3 INR PTT (Actin FS) Anticoagulation Therapy Puncture Site ABG pH ABG pCO2 at Pt Temp ABG pO2 at Pt Temp ABG HCO3 ABG O2 Sat (Measured) ABG O2 Content ABG Base Excess Linden Test Carboxyhemoglobin Methemoglobin O2 Delivery Device Oxygen Flow Rate Vent Mode Vent Rate Mechanical Rate PEEP Pressure Support Vent Sodium Potassium Chloride Carbon Dioxide Anion Gap BUN Creatinine Creat Clearance w eGFR Random Glucose Lactic Acid Calcium Total Bilirubin 1.0 D AST ALT Alkaline Phosphatase Creatine Kinase 252 D CK-MB (CK-2) 10.638 H Troponin I 0.08 H D Total Protein Albumin Urine Color Urine Appearance Urine pH Ur Specific [place] Urine Protein Urine Glucose (UA) Urine Ketones Urine Blood Urine Nitrite Urine Bilirubin Urine Urobilinogen Ur Leukocyte Esterase Urine RBC Urine WBC Ur Epithelial Cells Urine Bacteria Hyaline Casts Urine Mucus Blood Type Antibody Screen Crossmatch 11/26/16 10:30 WBC RBC Hgb Hct MCV MCHC RDW Plt Count MPV Neutrophils % Lymphocytes % Monocytes % Eosinophils % Basophils % Band Neutrophils Differential Comment Reactive Lymphocytes INR PTT (Actin FS) Anticoagulation Therapy Puncture Site ABG pH ABG pCO2 at Pt Temp ABG pO2 at Pt Temp ABG HCO3 ABG O2 Sat (Measured) ABG O2 Content ABG Base Excess Linden Test Carboxyhemoglobin Methemoglobin O2 Delivery Device Oxygen Flow Rate Vent Mode Vent Rate Mechanical Rate PEEP Pressure Support Vent Sodium Potassium Chloride Carbon Dioxide Anion Gap BUN Creatinine Creat Clearance w eGFR Random Glucose Lactic Acid 5.255 H* Calcium Total Bilirubin AST ALT Alkaline Phosphatase Creatine Kinase CK-MB (CK-2) Troponin I Total Protein Albumin Urine Color Urine Appearance Urine pH Ur Specific [place] Urine Protein Urine Glucose (UA) Urine Ketones Urine Blood Urine Nitrite Urine Bilirubin Urine Urobilinogen Ur Leukocyte Esterase Urine RBC Urine WBC Ur Epithelial Cells Urine Bacteria Hyaline Casts Urine Mucus Blood Type Antibody Screen Crossmatch Assessment/Plan MOF Acute Respiratory Failure Suspected Aspiration Pneumonitis GI bleed Bowel Obstruction (?) Ischemic Bowel UTI Septic Shock TANESHA Lactic acidosis PLAN: Surgical evaluation GI evaluation Transfusional support Aggressive IVF ID evaluation Follow ABG Howard-culture PPI FFP Overall prognosis appears grave for meaningful recovery. Dr Garnett CCTime 35"
[2016-11-26] MEDS: MUPIROCIN 2% TOPICAL OINTMENT FOR DECOLONIZATION NS SCH ×2 (13:18→22:30)
--- NOTE | 2016-11-26 13:28 | PN ---
Progress Note, Physician Chief Complaint: ID Full note dictated "Sepsis syndrome" - Current Medication List Current Medications: Active Medications Acetaminophen (Ofirmev Injection -) 1,000 mg IVPB ONCE PRN PRN Reason: FEVER Chlorhexidine Gluconate (Hibiclens For Decolonization -) 1 applic TP HS NATHALIA Norepinephrine Bitartrate 4, (000 mcg/ Dextrose) 500 mls @ 37.5 mls/hr IV TITR NATHALIA; 5 MCG/MIN PRN Reason: Protocol Last Admin: 11/26/16 12:30 Dose: 150 mls/hr Midazolam HCl 100 mg/ Sodium (Chloride) 100 mls @ 10 mls/hr IVPB TITR NATHALIA; 10 MG/HR PRN Reason: Protocol Last Titration: 11/26/16 10:30 Dose: 0 mg/hr Fentanyl 500 mcg/ Dextrose 100 mls @ 5 mls/hr IJ TITR NATHALIA PRN Reason: 25 MCG/HR Last Admin: 11/26/16 08:40 Dose: 5 mls/hr Lactated Ringer's (Lactated Ringers Solution) 1,000 mls @ 100 mls/hr IV ASDIR NATHALIA Last Admin: 11/26/16 08:55 Dose: 100 mls/hr Pantoprazole Sodium 80 mg/ (Sodium Chloride) 100 mls @ 10 mls/hr IVPB Q10H NATHALIA PRN Reason: 8 MG/HR Mupirocin (Bactroban Ointment (For Decolonization) -) 1 applic NS BID NATHALIA Stop: 12/01/16 09:59 Last Admin: 11/26/16 13:18 Dose: 1 applic - Objective Vital Signs: Vital Signs Temperature 97.8 F 11/26/16 13:00 Pulse Rate 135 H 11/26/16 13:00 Respiratory Rate 33 H 11/26/16 13:00 Blood Pressure 90/70 11/26/16 13:00 O2 Sat by Pulse Oximetry (%) 92 L 11/26/16 10:20 Constitutional: Yes: Other (Intubated Presssor support) Labs: CBC, BMP 11/26/16 08:00 INR, PTT INR 1.19 (0.82-1.09) H 11/26/16 08:00 Problem List - Problems (1) Pneumonia Code(s): J18.9 - PNEUMONIA, UNSPECIFIED ORGANISM (2) Sepsis Code(s): A41.9 - SEPSIS, UNSPECIFIED ORGANISM (3) Urinary tract infection Code(s): N39.0 - URINARY TRACT INFECTION, SITE NOT SPECIFIED Qualifiers: Urinary tract infection type: site unspecified Hematuria presence: without hematuria Qualified Code(s): N39.0 - Urinary tract infection, site not specified (4) Multiple drug resistant organism (MDRO) culture positive Code(s): Z16.24 - RESISTANCE TO MULTIPLE ANTIBIOTICS Assessment/Plan Microbiology 09/08/15 08:45 Urine - Urine Suprapubic Urine Culture - Final Escherichia Coli Esbl Musculoskeletal Physician 05/18/16 01:40 Urine - Urine Meraz Urine Culture - Final Proteus Mirabilis 11/26/16 07:30 Nasopharyngeal Swab Influenza Types A,B Antigen (BEATRIZ) - Final 11/26/16 07:30 Nasopharyngeal Swab - Final Laboratory Tests 11/26/16 11/26/16 11/26/16 05:14 05:30 05:30 WBC Hgb Hct Plt Count Neutrophils % Band Neutrophils INR Puncture Site Md puncture ABG pH 7.30 L ABG pO2 at Pt Temp 122.0 H Oxygen Flow Rate 100 BUN 54 H Creatinine 3.2 H Creat Clearance w eGFR 18.47 Lactic Acid 6.620 H* CK-MB (CK-2) Troponin I < 0.02 Ur Leukocyte Esterase Urine RBC Urine Bacteria 11/26/16 11/26/16 11/26/16 07:05 08:00 08:00 WBC 25.1 H D Hgb 10.7 L Hct 33.0 L Plt Count 422 Neutrophils % 80.0 Band Neutrophils 7.0 INR 1.19 H Puncture Site ABG pH ABG pO2 at Pt Temp Oxygen Flow Rate BUN Creatinine Creat Clearance w eGFR Lactic Acid CK-MB (CK-2) Troponin I Ur Leukocyte Esterase 3+ H Urine RBC 54 Urine Bacteria Many 11/26/16 11/26/16 10:30 10:30 WBC Hgb Hct Plt Count Neutrophils % Band Neutrophils INR Puncture Site ABG pH ABG pO2 at Pt Temp Oxygen Flow Rate BUN Creatinine Creat Clearance w eGFR Lactic Acid 5.255 H* CK-MB (CK-2) 10.638 H Troponin I Ur Leukocyte Esterase Urine RBC Urine Bacteria Assessment Sepsis syndrome Pneumonia Urinary infection History of multidrug resistant organism Respiratory failure Urine meraz and SP cath Plan Vanco Zosyn adjusted for Cr Trent Reyes MD
--- NOTE | 2016-11-26 14:43 | CON.GI ---
Consult Consult Specialty:: GI Referred by:: Hospitalists Reason for Consultation:: Coffee grounds from NGT - History of Present Illness Chief Complaint: Patient non verbal. History per chart History of Present Illness: 86M transferred from [place] to [facility] ER for evaluation of unresponsiveness and low oxygen saturations. Found hypotensive. had NG tube placed. Noted coffee ground aspirate. Called for GI bleed. Per ICU nurse, 2L of coffee ground fluid suctioned from NGT and abdomen was distended. AXR performed in the ER revealed distended bowel loops raising suspicion for SBO/PSBO. Called due to concern of GI bleed. No melena reported. Patient remains hypotensive. 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 surgery - Alcohol/Substance Use Hx Alcohol Use: No - Smoking History Smoking history: Never smoked Have you smoked in the past 12 months: No - Social History Usual Living Arrangement: Shelter History of Recent Travel: No Home Medications - Allergies Allergies/Adverse Reactions: Allergies Allergy/AdvReac Type Severity Reaction Status Date / Time No Known Allergies Allergy Verified 11/26/16 05:17 - Home Medications Home Medications: Ambulatory Orders Acetaminophen [Tylenol -] 650 mg PO Q6H PRN 11/26/16 Ascorbic Acid [Vitamin C -] 500 mg PO DAILY 11/26/16 Bisac-Evac 10 mg NV DAILY PRN 11/26/16 Calcium Carbonate [Calcium] 1,250 mg PO BID 11/26/16 Econazole Nitrate 1% [Spectazole 1%] 1 applic TP BID 11/26/16 Ferrous Sulfate 325 mg PO DAILY 11/26/16 Magnesium Hydroxide [Milk of Magnesia -] 30 ml PO DAILY PRN 11/26/16 Metoprolol Tartrate 25 mg PO BID 11/26/16 Nitroglycerin Sublingual [Nitrostat -] 0.4 mg SL PRN PRN 11/26/16 Olanzapine 5 mg PO 0900,1300 11/26/16 Olanzapine [Zyprexa -] 5 mg PO 1700,2100 11/26/16 Omeprazole 1 cap PO 0630,1630 11/26/16 Oxybutynin Chloride [Oxybutynin Chloride ER] 10 mg PO DAILY 11/26/16 Polyethylene Glycol 3350 [Miralax 119 gm Btl -] 17 grams PO DAILY PRN 11/26/16 Family Disease History - Family Disease History Family History: Unable to Obtain Review of Systems Unable to obtain ROS, reason: patient non-verbal Physical Exam-GI Vital Signs: Vital Signs Temperature 97.8 F 11/26/16 13:00 Pulse Rate 135 H 11/26/16 13:00 Respiratory Rate 33 H 11/26/16 13:00 Blood Pressure 90/70 11/26/16 13:00 O2 Sat by Pulse Oximetry (%) 92 L 11/26/16 10:20 Constitutional: Yes: Calm Eyes: No: Sclera Icterus Cardiovascular: Yes: Tachycardia Respiratory: Yes: Diminished (at bases, poor insp effort) Gastrointestinal Inspection: Yes: Distention, Hernia (reducible ventral hernia just cephalad to the umbilicus) ...Auscultate: Yes: Hypoactive Bowel Sounds ...Percussion: Yes: Tympanitic ...Rectal Exam: Yes: Other (guzman stool, no blood, no melena) Edema: No (no LE edema) Neurological: Yes: Unresponsive Labs: CBC, BMP 11/26/16 08:00 INR, PTT INR 1.19 (0.82-1.09) H 11/26/16 08:00 Assessment/Plan Coffee grounds from NGT: I do not suspect the 2L of coffee ground gastric content to be secondary to a primary bleed event. Given physical and radiographic findings, I suspect the patient has a small bowel obstruction / ileus and likely aspirated. He is hypotensive and critically ill. I advise: 1. Surgical consult 2. NGT to low wall suction 3. When stable enough CT scan of the abdomen and pelvis with contrast through NGT 4. Advance directives be clarified with patient's family / care takers be clarified and level of aggressiveness of care be established 5. Protonix 40mg IVPB for now
[2016-11-26] MEDS: PANTOPRAZOLE SODIUM 80 MG in SODIUM CHLORIDE 100 ML IVPB SCH ×2 (15:33→23:30)
[2016-11-26 16:32] LABS: MCH 29.2 pg (25.7-33.7); MCHC 33.3 g/dl (32.0-35.9); MEAN CELL VOLUME 87.6 fl (80-96); MEAN PLT VOLUME 8.5 fl (7.5-11.1); PLATELET COUNT 380 K/MM3 (134-434); RDW 15.8 % (11.9-15.9); WHITE BLOOD COUNT 8.2 K/mm3 (4.0-10.0)
--- NOTE | 2016-11-26 17:12 | PN ---
Progress Note, Physician History of Present Illness: patient seen and examined at bedside in the ICU - Current Medication List Current Medications: Active Medications Acetaminophen (Ofirmev Injection -) 1,000 mg IVPB ONCE PRN PRN Reason: FEVER Acetaminophen (Ofirmev Injection -) 1,000 mg IVPB Q6H PRN PRN Reason: FEVER OR PAIN Stop: 11/27/16 11:06 Chlorhexidine Gluconate (Hibiclens For Decolonization -) 1 applic TP HS NATHALIA Norepinephrine Bitartrate 4, (000 mcg/ Dextrose) 500 mls @ 37.5 mls/hr IV TITR NATHALIA; 5 MCG/MIN PRN Reason: Protocol Last Admin: 11/26/16 15:38 Dose: 150 mls/hr Midazolam HCl 100 mg/ Sodium (Chloride) 100 mls @ 10 mls/hr IVPB TITR NATHALIA; 10 MG/HR PRN Reason: Protocol Last Titration: 11/26/16 10:30 Dose: 0 mg/hr Fentanyl 500 mcg/ Dextrose 100 mls @ 5 mls/hr IJ TITR NATHALIA PRN Reason: 25 MCG/HR Last Admin: 11/26/16 08:40 Dose: 5 mls/hr Lactated Ringer's (Lactated Ringers Solution) 1,000 mls @ 100 mls/hr IV ASDIR NATHALIA Last Admin: 11/26/16 08:55 Dose: 100 mls/hr Pantoprazole Sodium 80 mg/ (Sodium Chloride) 100 mls @ 10 mls/hr IVPB Q10H NATHALIA PRN Reason: 8 MG/HR Last Admin: 11/26/16 15:33 Dose: 10 mls/hr Piperacillin Sod/Tazobactam Sod (Zosyn 2.25gm Ivpb (Pre-Docked)) 50 mls @ 100 mls/hr IVPB Q8H-IV NATHALIA Mupirocin (Bactroban Ointment (For Decolonization) -) 1 applic NS BID NATHALIA Stop: 12/01/16 09:59 Last Admin: 11/26/16 13:18 Dose: 1 applic - Objective Vital Signs: Vital Signs Temperature 99.0 F 11/26/16 17:00 Pulse Rate 117 H 11/26/16 17:00 Respiratory Rate 23 11/26/16 17:00 Blood Pressure 56/38 11/26/16 17:00 O2 Sat by Pulse Oximetry (%) 92 L 11/26/16 10:20 Constitutional: Yes: Other (intubated sedated overbreathing the ventilator) Eyes: Yes: Conjunctiva Clear HENT: Yes: Atraumatic Neck: Yes: Trachea Midline Cardiovascular: Yes: Tachycardia Respiratory: Yes: Diminished, Intubated, Mechanically Ventilated, Rhonchi Gastrointestinal: Yes: Abdomen, Obese, Distention, Palpable Mass (likely an umbilical hernia) ...Rectal Exam: Yes: Guaiac Positive Genitourinary: Yes: Other (suprapubic cathter in place) Extremities: Yes: Cool Edema: No Neurological: Yes: Other (sedated) Labs: CBC, BMP 11/26/16 15:45 INR, PTT INR 1.19 (0.82-1.09) H 11/26/16 08:00 - ....Imaging Chest X-ray: Report Reviewed, Image Reviewed X-ray: Report Reviewed, Image Reviewed (abdominal) Assessment/Plan 86M with multiple medical problems presents to the ED Pt is an 86yr old man with PMHx including DM, dementia, PEG tube (now reversed) , suprapubic bladder catheter with recurrent UTIs, GI bleed and anemia. Now in the ICU for management of septic shock with associated respiratory failure secondary to HCAP, and metabolic acidosis in setting of TANESHA. Sepsis secondary to pneumonia vs UTI. 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 likely source of sepsis is health care acquired pneumonia. Pneumonia also likely cause for patient's acute hypoxic respiratory failure. hx of proteus and ESBL in urine, both sensitive to Zosyn. Leuokocystosis multiorgan failure Lactic acidosis could be due to ischemic bowel continue ventilatory support Wean FiO2 as tolerated spontaneous breathing trial when hemodynamically stable continue pressors for BP support f/u cultures ID consult appreciated continue vanco/zosyn vanco level in AM trend lactic acid. patient has lactic acidosis/Metabolic acidosis continue fentanyl gtt for pain control hold off on steroids for now repeat CXR in AM Cardiovascular hold antihypertensives at this time patient is hypotensive and in septic shock fluid resuscitation will eventually need a TLC for CVP monitoring GI: GI bleed, SBO vs partial SBO transfuse PRN trend CBC so far Hb stable has coffee ground emesis from NG tube trend Abdominal XR will repeat in AM GI consult appreciated protonix gtt will need CT scan with PO/IV contrast when hemodynamically stable surgery consult Acute on chronic renal failure treat underlying sepsis Volume resuscitate Strict I/Os Replete electrolytes prn Monitor BUN/Cr Renally dose medications DM: BGM q6h ISS PPx: SCDs protonix PT consult when stable and can participate FEN: LR @ 100ml/hr with boluses PRN hyperkalemia/hypernatremia NPO for now Grave prognosis. very poor chance for any meaningful recovery this was discussed with daughter HCP appointed by law need clarification pallitave care on board ethics committee consult
[2016-11-26] MEDS: PIPERACILLIN/TAZOB 2.25 GM 50 ML IVPB SCH (17:41)
--- NOTE | 2016-11-26 18:55 | CONS ---
DATE OF CONSULTATION: 11/26/2016 This is an 86-year-old male who can offer no history as he was brought from the care home unresponsive. He required intubation and was found to be hypotensive, requiring pressors. The working diagnosis is sepsis. Additionally, while currently intubated, he was noted to have coffee-ground emesis from his nasogastric tube with a large NG output noted. Antibiotic with vancomycin and Zosyn was given for suspected sepsis with pneumonia. He has a suprapubic Mattson catheter and has had an ESBL in the past, although his most recent urine cultures had Proteus, which was sensitive. Currently the patient is in extremis on a ventilator requiring pressor support with high O2 saturations. Past medical history includes urinary tract infection, suprapubic Mattson catheter, hypertension, dementia, anemia, chronic kidney disease, diabetes mellitus. ALLERGY: None known. MEDICATIONS: Iron, metoprolol, Seroquel, Protonix. SOCIAL HISTORY: Never smoked. No history of alcohol use. retirement resident. REVIEW OF SYSTEMS: Respiratory: No cough, shortness of breath. Cardiac: No history of chest pain, palpitations, syncope, murmur. Gastrointestinal: History of GI bleeding. No abdominal pain, vomiting, or diarrhea noted. Genitourinary: Suprapubic Mattson catheter. No gross hematuria noted. PHYSICAL EXAMINATION: General: An elderly male, intubated, in severe distress. Vital Signs: Temperature 97.8, pulse 135, blood pressure 90/70, respirations 13. HEENT: Endotracheal tube. Lungs: Long shallow respirations. Bilateral rales. No wheezing or rhonchi. Heart: S1, S2. Tachycardic. No murmur, rub, gallop. Abdomen: Soft, nontender. Normoactive bowel sounds. No guarding, no rebound, no mass. Extremities: Not moving any extremities. No clubbing or cyanosis. Neurological: Cranial nerves grossly intact. Genitourinary: Suprapubic Mattson catheter noted. White count of 18.3, now 25.1, hemoglobin 10.7, platelets 422, with a left shift. INR of 1.19. AB.30, 35, 122, 100% oxygen flow. BUN 54, creatinine 3.2, lactic acid 6.6. CK-MB 10.6, TNI less than 0.02. Urinalysis with 54 WBCs, 856 WBCs, and many bacteria. Chest x-ray was reviewed, shows left-sided infiltrate. ASSESSMENT: Septic shock, multiorgan failure, history of resistant organism with extended-spectrum beta lactamase Escherichia coli, pneumonia, urinary tract infection, suprapubic Mattson catheter, diabetes mellitus. PLAN: Maintain contact isolation pending cultures of blood, urine and sputum. He has been given vancomycin and will continue him on Zosyn 2.25 g q.8 hours pending cultures. FREDA OSMAN M.D. MIGUEL [id number]
[2016-11-26] MEDS ORDERED: VASOPRESSIN 50 UNITS in SODIUM CHLORIDE 97.5 ML IVPB SCH (20:00)
[2016-11-26] MEDS ORDERED: VASOPRESSIN 20 UNITS/ML VIAL IV ONE (20:01)
[2016-11-26] MEDS ORDERED: PHENYLEPHRINE HCL 10 MG/1 ML SINGLE DOSE VIAL ONE ×2 (20:23→21:57)
[2016-11-26] MEDS ORDERED: LACTATED RINGERS SOLUTION 250 ML IV STA (20:35)
[2016-11-26] MEDS: PHENYLEPHRINE HCL 20,000 MCG in SODIUM CHLORIDE 248 ML IVPB SCH (20:40)
[2016-11-26 21:32] LABS: BASOPHIL 0.2 % (0-2.0); EOSINOPHIL 0.1 % (0-4.5); MCH 28.6 pg (25.7-33.7); MCHC 32.4 g/dl (32.0-35.9); MEAN CELL VOLUME 88.3 fl (80-96); MEAN PLT VOLUME 7.9 fl (7.5-11.1); NEUTROPHILS 69.9 % (42.8-82.8); PLATELET COUNT 311 K/MM3 (134-434); RDW 15.9 % (11.9-15.9); WHITE BLOOD COUNT 7.4 K/mm3 (4.0-10.0)
[2016-11-26] MEDS ORDERED: PANTOPRAZOLE SODIUM 100 ML IVPB SCH (22:00)
[2016-11-26 22:32] LABS: ALBUMIN 1.8 g/dl (3.4-5.0); BILIRUBIN,TOTAL 0.5 mg/dL (0.2-1.0); CALCIUM 7.2 mg/dL (8.5-10.1); CREATININE 3.5 mg/dL (0.7-1.3); MAGNESIUM 1.3 mg/dL (1.8-2.4); PHOSPHOROUS 1.3 mg/dL (2.5-4.9); TOT PROT 4.1 g/dl (6.4-8.2)
[2016-11-26] MEDS: CHLORHEXIDINE GLUCONATE 4% CLEANSER FOR DECOLONIZATION TP SCH (22:50)
[2016-11-27] MEDS ORDERED: MAGNESIUM SULF 50% (8.12 MEQ/2 ML-1 GM VIAL) IVPB ONE (00:14)
[2016-11-27] MEDS ORDERED: PHENYLEPHRINE HCL 10 MG/1 ML SINGLE DOSE VIAL ONE ×5 (00:23→20:58)
--- NOTE | 2016-11-27 00:26 | EKG ---
Test Reason : Blood Pressure : / mmHG Vent. Rate : 094 BPM Atrial Rate : 094 BPM P-R Int : 156 ms QRS Dur : 118 ms QT Int : 372 ms P-R-T Axes : 003 022 004 degrees QTc Int : 465 ms NORMAL SINUS RHYTHM RIGHT BUNDLE BRANCH BLOCK POSSIBLE INFERIOR INFARCT , AGE UNDETERMINED ABNORMAL ECG NO PREVIOUS ECGS AVAILABLE Confirmed by DORON KING, RICK ([id number]) on 11/27/2016 12:26:03 AM Referred By: Confirmed By:RICK SAL MD
[2016-11-27] MEDS: FENTANYL INJECTION 500 MCG in DEXTROSE 5%-WATER - 90 ML IJ SCH ×3 (00:30→23:00)
[2016-11-27] MEDS ORDERED: MAGNESIUM SULF 50% (8.12 MEQ/2 ML-1 GM VIAL) ONE (00:33)
[2016-11-27] MEDS ORDERED: SODIUM PHOSPHATE - 15 MM in DEXTROSE 5%-WATER - 250 ML IVPB ONE (00:45)
[2016-11-27] MEDS: INSULIN SLIDING SCALE (NOVOLOG) 1 VIAL SQ SCH ×6 (01:00→23:37)
[2016-11-27] MEDS: PIPERACILLIN/TAZOB 2.25 GM 50 ML IVPB SCH ×3 (01:05→17:16)
[2016-11-27 05:42] LABS: BASOPHIL 0.7 % (0-2.0); EOSINOPHIL 0.1 % (0-4.5); MCH 28.9 pg (25.7-33.7); MEAN CELL VOLUME 87.8 fl (80-96); MEAN PLT VOLUME 7.9 fl (7.5-11.1); NEUTROPHILS 80.1 % (42.8-82.8); PLATELET COUNT 293 K/MM3 (134-434); WHITE BLOOD COUNT 14.1 K/mm3 (4.0-10.0)
[2016-11-27 06:05] LABS: ALBUMIN 1.7 g/dl (3.4-5.0); MAGNESIUM 1.3 mg/dL (1.8-2.4); PHOSPHOROUS 2.3 mg/dL (2.5-4.9)
[2016-11-27 06:07] LABS: BILIRUBIN,TOTAL 0.5 mg/dL (0.2-1.0); CREATININE 3.8 mg/dL (0.7-1.3); TOT PROT 4.2 g/dl (6.4-8.2); TROPONIN I 0.41 ng/ml (0.00-0.05)
[2016-11-27 06:14] LABS: CALCIUM 6.8 mg/dL (8.5-10.1)
[2016-11-27] MEDS ORDERED: NOREPINEPHRINE BITARTRATE 4 MG/4 ML ML IV ONE ×4 (06:28→20:58)
[2016-11-27] MEDS: NOREPINEPHRINE BITARTRATE 4,000 MCG in DEXTROSE 5%-WATER - 496 ML IV SCH ×4 (06:30→17:13)
[2016-11-27] MEDS: MIDAZOLAM 100 MG in SODIUM CHLORIDE 100 ML IVPB SCH (06:31)
[2016-11-27] MEDS: LACTATED RINGERS SOLUTION 1,000 ML IV SCH ×3 (06:32→23:00)
[2016-11-27 07:30] LABS: ARTERIAL BLD GAS O2 SATURATION 87.9 % (90-98.9); ARTERIAL BLOOD GAS BASE EXCESS -11.6 meq/l (-2-2); ARTERIAL BLOOD GAS HCO3 14.1 meq/L (22-26)
[2016-11-27 07:31] LABS: ALLENS TEST POSITIVE; ART PUNCT SITE RIGHT RADIAL; LPM/O2% 100; MECH. VENT. YES; PT. ON O2? YES; TYPE OF O2 VENT; VENT RATE 16; VT/PRESS 425
[2016-11-27 07:32] LABS: ARTERIAL BLOOD GAS pH 7.26 (7.35-7.45)
--- NOTE | 2016-11-27 08:13 | MSN ---
Progress Note (SOAP) - Subjective Chief Complaint: Found unresponsive with low O2 saturation History of Present Illness: Pt is unresponsive, HPI obtained from medical records. Pt is a 86 yo white male with a PMHx of DM, CKD, dementia, anemia, GI hemorrhage , and suprapubic catheter placement with recurrent UTIs, that was BIBA to the ER early this morning after being found unresponsive in his [facility]p apt with a low oxygen saturation of 71%. Per [facility] records, the pt suprapubic catheter was clogged yesterday and subsequently a meraz catheter was placed with minimal output. Pt was intubated in the ER with BPs in the 50-70s/40s, HR in the 90s, afebrile, and a output of ~400mL coffee ground emesis via NGT. Pt is currently on IV pressors, IV sedation, and IVF. Phenylephrine 100 mcg/hr, NE 30 mcg/hr, Fentanyl 25 mcg/hr, LRs 100 ml/hr. Pt was taken off Versed yesterday. Nurse measured BP with manual cuff and doppler showing systolic in the 50s. - Current Medications Current Medications: Active Medications Acetaminophen (Ofirmev Injection -) 1,000 mg IVPB ONCE PRN PRN Reason: FEVER Chlorhexidine Gluconate (Hibiclens For Decolonization -) 1 applic TP HS NATHALIA Last Admin: 11/26/16 22:50 Dose: 1 applic Norepinephrine Bitartrate 4, (000 mcg/ Dextrose) 500 mls @ 37.5 mls/hr IV TITR NATHALIA; 5 MCG/MIN PRN Reason: Protocol Last Admin: 11/27/16 06:30 Dose: 225 mls/hr Midazolam HCl 100 mg/ Sodium (Chloride) 100 mls @ 10 mls/hr IVPB TITR NATHALIA; 10 MG/HR PRN Reason: Protocol Last Admin: 11/27/16 06:31 Dose: Not Given Fentanyl 500 mcg/ Dextrose 100 mls @ 5 mls/hr IJ TITR NATHALIA PRN Reason: 25 MCG/HR Last Admin: 11/27/16 00:30 Dose: 5 mls/hr Lactated Ringer's (Lactated Ringers Solution) 1,000 mls @ 100 mls/hr IV ASDIR NATHALIA Last Admin: 11/27/16 06:32 Dose: 100 mls/hr Pantoprazole Sodium 80 mg/ (Sodium Chloride) 100 mls @ 10 mls/hr IVPB Q10H NATHALIA PRN Reason: 8 MG/HR Last Admin: 11/26/16 23:30 Dose: 10 mls/hr Piperacillin Sod/Tazobactam Sod (Zosyn 2.25gm Ivpb (Pre-Docked)) 50 mls @ 100 mls/hr IVPB Q8H-IV NATHALIA Last Admin: 11/27/16 01:05 Dose: 100 mls/hr Vasopressin 50 units/ Sodium (Chloride) 100 mls @ 4 mls/hr IVPB ASDIR NATHALIA; 2 UNITS/HR PRN Reason: Protocol Last Admin: 11/26/16 20:50 Dose: Not Given Phenylephrine HCl 20,000 mcg/ (Sodium Chloride) 250 mls @ 75 mls/hr IVPB ASDIR NATHALIA; 100 MCG/MIN PRN Reason: Protocol Last Admin: 11/26/16 20:40 Dose: 75 mls/hr Insulin Aspart (Novolog Vial Sliding Scale -) 1 vial SQ Q6HPO NATHALIA PRN Reason: Protocol Last Admin: 11/27/16 06:30 Dose: Not Given Mupirocin (Bactroban Ointment (For Decolonization) -) 1 applic NS BID NATHALIA Stop: 12/01/16 09:59 Last Admin: 11/26/16 22:30 Dose: 1 applic - Objective Vital Signs: Vital Signs Temperature 98.4 F 11/27/16 12:43 Pulse Rate 106 H 11/27/16 15:28 Respiratory Rate 31 H 11/27/16 14:59 Blood Pressure 66/40 11/27/16 15:28 O2 Sat by Pulse Oximetry (%) 90 L 11/27/16 15:00 HENT: Yes: WNL, Atraumatic, Normocephalic Neck: Yes: WNL, Trachea Midline Cardiovascular: Yes: Tachycardia, Pulse Irregular, S1, S2. No: JVD Respiratory: Yes: Intubated, Mechanically Ventilated, Rhonchi (L>R), Tachypnea Gastrointestinal: Yes: Abdomen, Obese, Distention, Hypoactive Bowel Sounds (No bowel sounds auscultated in 4/4 quadrants) Genitourinary: Yes: Meraz Present (Suprapubic and meraz w/ minimal urine output) Musculoskeletal: Yes: Muscle Weakness Extremities: Yes: Cold, Cool, Delayed Capillary Refill Peripheral Pulses WNL: No Peripheral Pulses: Left Radial: 1+, Right Radial: 1+, Left Doralis Pedis: 0, Right Dorsalis Pedis: 0 Edema: RUE: Trace Neurological: Yes: Unresponsive. No: WNL, Alert, Oriented ...Motor Strength: No: WNL Psychiatric: Yes: Other (Unresponsive). No: WNL Labs Lab Results: CBC, BMP 11/27/16 05:20 11/27/16 05:20 Imaging - Results Chest X-ray: Report Reviewed, Image Reviewed X-ray: Report Reviewed, Image Reviewed Problem List - Problems (1) GI bleed Code(s): K92.2 - GASTROINTESTINAL HEMORRHAGE, UNSPECIFIED (2) Pneumonia Code(s): J18.9 - PNEUMONIA, UNSPECIFIED ORGANISM (3) Sepsis Code(s): A41.9 - SEPSIS, UNSPECIFIED ORGANISM Qualifiers: Sepsis type: sepsis due to unspecified organism Qualified Code(s): A41.9 - Sepsis, unspecified organism (4) Suprapubic catheter dysfunction Code(s): T83.018A - BREAKDOWN (MECHANICAL) OF OTHER URINARY CATHETER, INIT Qualifiers: Encounter type: initial encounter Qualified Code(s): T83.018A - Breakdown (mechanical) of other indwelling urethral catheter, initial encounter (5) Urinary tract infection Code(s): N39.0 - URINARY TRACT INFECTION, SITE NOT SPECIFIED Qualifiers: Urinary tract infection type: site unspecified Hematuria presence: without hematuria Qualified Code(s): N39.0 - Urinary tract infection, site not specified Assessment/Plan Pt is an 86 yo M with PMHx including DM, dementia, suprapubic bladder catheter with recurrent UTIs, GI bleed, and anemia. Currently in the ICU for management of septic shock secondary to UTI vs. HCAP, with associated respiratory failure and metabolic acidosis in the setting of lactic acidosis. 1. Respiratory failure -Cont. mechanical ventilation in order to maintain O2 sat >94% -Current vent settings: 425 TV, 16 Rate, 100% FiO2, +7 PEEP 2. Septic shock secondary to HCAP vs. UTI (Hx of ESBL sensitive to Zosyn) -IV ABX (azithromycin, zosyn, vancomycin) given in the ER -ID consult appreciated -Urine Cx was contaminated -Blood Cx showed no growth after 24 hrs -Zosyn and vancomycin started -Vanco level 8.869 -Repeat Vanco level in AM 3. Demand ischemia -Cont. to trend troponins -ECHO ordered 4. Metabolic acidosis -Cont. IVF to volume resuscitate, LRs running at 100 mls/hr -Monitor BUN/Cr -Monitor BMP, replete electrolytes as needed -Trend lactic acid -Repeat ABG in AM 5. GI bleed -GI consult appreciated -Cont. NGT to LWS -Protonix 40mg IVPB -2 units PRBCs ordered, 1 unit issued, transfuse PRN Dustin Duncan, MS3
--- NOTE | 2016-11-27 10:33 | CONSULT ---
Consult Consult Specialty:: Surgery Referred by:: payton Reason for Consultation:: Sepsis, intestinal ilius. - History of Present Illness History of Present Illness: Patient was found unresponsive in his care home room, yesterday. Had a change, of a blocked suprapubic catheter, 2 days ago. He is brought into the hospital hypotensive, and has since been receiving, high dose of vasopressors, in a drip. 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 surgery - Alcohol/Substance Use Hx Alcohol Use: No - Smoking History Smoking history: Never smoked Have you smoked in the past 12 months: No - Social History Usual Living Arrangement: [facility] History of Recent Travel: No Home Medications - Allergies Allergies/Adverse Reactions: Allergies Allergy/AdvReac Type Severity Reaction Status Date / Time No Known Allergies Allergy Verified 11/26/16 05:17 - Home Medications Home Medications: Ambulatory Orders Acetaminophen [Tylenol -] 650 mg PO Q6H PRN 11/26/16 Ascorbic Acid [Vitamin C -] 500 mg PO DAILY 11/26/16 Bisac-Evac 10 mg [place] DAILY PRN 11/26/16 Calcium Carbonate [Calcium] 1,250 mg PO BID 11/26/16 Econazole Nitrate 1% [Spectazole 1%] 1 applic TP BID 11/26/16 Ferrous Sulfate 325 mg PO DAILY 11/26/16 Magnesium Hydroxide [Milk of Magnesia -] 30 ml PO DAILY PRN 11/26/16 Metoprolol Tartrate 25 mg PO BID 11/26/16 Nitroglycerin Sublingual [Nitrostat -] 0.4 mg SL PRN PRN 11/26/16 Olanzapine 5 mg PO 0900,1300 11/26/16 Olanzapine [Zyprexa -] 5 mg PO 1700,2100 11/26/16 Omeprazole 1 cap PO 0630,1630 11/26/16 Oxybutynin Chloride [Oxybutynin Chloride ER] 10 mg PO DAILY 11/26/16 Polyethylene Glycol 3350 [Miralax 119 gm Btl -] 17 grams PO DAILY PRN 11/26/16 Physical Exam Vital Signs: Vital Signs Temperature 98.6 F 11/27/16 09:52 Pulse Rate 107 H 11/27/16 09:52 Respiratory Rate 30 H 11/27/16 09:52 Blood Pressure 40/0 11/27/16 09:52 O2 Sat by Pulse Oximetry (%) 90 L 11/27/16 09:07 Gastrointestinal: Yes: Other (No abdominal distention , no spalpable mass, NG tube with bilious material.) Labs: CBC, BMP 11/27/16 05:20 11/27/16 05:20 Imaging - Results X-ray: Report Reviewed, Image Reviewed Problem List - Problems (1) Sepsis Code(s): A41.9 - SEPSIS, UNSPECIFIED ORGANISM Qualifiers: Sepsis type: sepsis due to unspecified organism Qualified Code(s): A41.9 - Sepsis, unspecified organism (2) Sepsis associated hypotension Code(s): A41.9 - SEPSIS, UNSPECIFIED ORGANISM (3) Urinary tract infection Code(s): N39.0 - URINARY TRACT INFECTION, SITE NOT SPECIFIED Qualifiers: Urinary tract infection type: site unspecified Hematuria presence: without hematuria Qualified Code(s): N39.0 - Urinary tract infection, site not specified (4) Adynamic ileus Code(s): K56.0 - PARALYTIC ILEUS (5) Dilation of intestine Code(s): K59.3 - MEGACOLON, NOT ELSEWHERE CLASSIFIED * DO NOT USE * Assessment/Plan Clinically , based on abdominal examination , he does not appear to have acute intestinal obstruction. There is no free air in tghe abdominal cavity. He is hypotensive for over 24 hours , and too sick to be transported for CT scan. Low index of suspicion for intestinal obstruction. Continue resuscitation , NG aspiration , antibiotics. Prognosis guarded. If he does respond to resuscitation , consider abdominal CT scan.
[2016-11-27] MEDS: PANTOPRAZOLE SODIUM 80 MG in SODIUM CHLORIDE 100 ML IVPB SCH (11:18)
[2016-11-27] MEDS: MUPIROCIN 2% TOPICAL OINTMENT FOR DECOLONIZATION NS SCH ×2 (11:20→22:30)
[2016-11-27] MEDS: PHENYLEPHRINE HCL 20,000 MCG in SODIUM CHLORIDE 248 ML IVPB SCH ×4 (11:39→21:00)
--- NOTE | 2016-11-27 11:58 | PN ---
Teaching Attending Note Name of Resident: Alber Rivera ATTENDING PHYSICIAN STATEMENT I saw and evaluated the patient. I reviewed the resident's note and discussed the case with the resident. I agree with the resident's findings and plan as documented. SUBJECTIVE: Patient seen and examined in the ICU. Intubated and poorly responsive. Further clinical decompensation. Refractory shock despite high dose pressors and aggressive IVF resuscitation Intake & Output 11/24/16 11/25/16 11/26/16 11/27/16 23:59 23:59 23:59 23:59 Intake Total 33699.5 2935.5 Output Total 2495 100 Balance 8427.5 2835.5 Weight 165 lb 181 lb 10.574 oz Last Vital Signs Temp Pulse Resp BP Pulse Ox 98.6 F 108 H 32 H 70/37 88 L 11/27/16 09:52 11/27/16 11:51 11/27/16 11:51 11/27/16 11:51 11/27/16 11:52 Active Medications Acetaminophen (Ofirmev Injection -) 1,000 mg IVPB ONCE PRN PRN Reason: FEVER Chlorhexidine Gluconate (Hibiclens For Decolonization -) 1 applic TP HS NATHALIA Last Admin: 11/26/16 22:50 Dose: 1 applic Norepinephrine Bitartrate 4, (000 mcg/ Dextrose) 500 mls @ 37.5 mls/hr IV TITR NATHALIA; 5 MCG/MIN PRN Reason: Protocol Last Admin: 11/27/16 11:26 Dose: 225 mls/hr Fentanyl 500 mcg/ Dextrose 100 mls @ 5 mls/hr IJ TITR NATHALIA PRN Reason: 25 MCG/HR Last Admin: 11/27/16 11:22 Dose: Not Given Lactated Ringer's (Lactated Ringers Solution) 1,000 mls @ 100 mls/hr IV ASDIR NATHALIA Last Admin: 11/27/16 10:59 Dose: 100 mls/hr Piperacillin Sod/Tazobactam Sod (Zosyn 2.25gm Ivpb (Pre-Docked)) 50 mls @ 100 mls/hr IVPB Q8H-IV NATHALIA Last Admin: 11/27/16 09:42 Dose: 100 mls/hr Phenylephrine HCl 20,000 mcg/ (Sodium Chloride) 250 mls @ 75 mls/hr IVPB ASDIR NATHALIA; 100 MCG/MIN PRN Reason: Protocol Last Admin: 11/27/16 11:39 Dose: 75 mls/hr Pantoprazole Sodium (Protonix 40mg Ivpb (Pre-Docked)) 100 mls @ 200 mls/hr IVPB DAILY NATHALIA Insulin Aspart (Novolog Vial Sliding Scale -) 1 vial SQ Q6HPO NATHALIA PRN Reason: Protocol Last Admin: 11/27/16 08:17 Dose: Not Given Mupirocin (Bactroban Ointment (For Decolonization) -) 1 applic NS BID NATHALIA Stop: 12/01/16 09:59 Last Admin: 11/27/16 11:20 Dose: 1 applic Constitutional: Yes: Intubated and poorly responsive Eyes: Yes: PERRL Neck: Yes: Other (NGT with copious coffee ground emesis) Cardiovascular: Yes: Pulse Irregular, S1, S2 Respiratory: Yes: Intubated, Mechanically Ventilated, Rhonchi (L>R), Tachypnea Gastrointestinal: Yes: Abdomen, Obese, Distention, Hypoactive Bowel Sounds ...Rectal Exam: Yes: (+) guaiac Renal/: Yes: Mattson Present (suprapubic and penile) Musculoskeletal: Yes: Other (protruding hard mass on rt lower anterior rib) Extremities: Yes: Cool/cold Edema: Yes Edema: LUE: 1+, RUE: Trace Peripheral Pulses WNL: (weak bilateral pedal pulses) Integumentary: Yes: Other (pale, cool hands/feet) Wound/Incision: Yes: Other (rt femoral TLC) Neurological: Yes: Other (poorly responsive) Labs: Laboratory Results - last 24 hr 11/26/16 11/26/16 11/26/16 10:30 10:30 10:30 WBC RBC Hgb Hct MCV MCHC RDW Plt Count MPV Neutrophils % Lymphocytes % Monocytes % Eosinophils % Basophils % Puncture Site ABG pH ABG pCO2 at Pt Temp ABG pO2 at Pt Temp ABG HCO3 ABG O2 Sat (Measured) ABG O2 Content ABG Base Excess Linden Test O2 Delivery Device Oxygen Flow Rate Vent Mode Vent Rate Mechanical Rate PEEP Pressure Support Vent Sodium Potassium Chloride Carbon Dioxide Anion Gap BUN Creatinine Creat Clearance w eGFR POC Glucometer Random Glucose Lactic Acid 5.255 H* Calcium Phosphorus Magnesium Total Bilirubin AST ALT Alkaline Phosphatase Creatine Kinase Creatine Kinase Index 4.2 CK-MB (CK-2) 10.638 H CK-MB (CK-2) Rel Index Cancelled Troponin I Total Protein Albumin Random Vancomycin 11/26/16 11/26/16 11/26/16 13:16 15:45 16:46 WBC 8.2 D RBC 3.39 L Hgb 9.9 L Hct 29.7 L MCV 87.6 MCHC 33.3 RDW 15.8 Plt Count 380 MPV 8.5 Neutrophils % Lymphocytes % Monocytes % Eosinophils % Basophils % Puncture Site ABG pH ABG pCO2 at Pt Temp ABG pO2 at Pt Temp ABG HCO3 ABG O2 Sat (Measured) ABG O2 Content ABG Base Excess Linden Test O2 Delivery Device Oxygen Flow Rate Vent Mode Vent Rate Mechanical Rate PEEP Pressure Support Vent Sodium Potassium Chloride Carbon Dioxide Anion Gap BUN Creatinine Creat Clearance w eGFR POC Glucometer 163.19203 170.12316 Random Glucose Lactic Acid Calcium Phosphorus Magnesium Total Bilirubin AST ALT Alkaline Phosphatase Creatine Kinase Creatine Kinase Index CK-MB (CK-2) CK-MB (CK-2) Rel Index Troponin I Total Protein Albumin Random Vancomycin 11/26/16 11/26/16 11/26/16 21:15 21:15 21:52 WBC 7.4 RBC 3.08 L Hgb 8.8 L D Hct 27.2 L MCV 88.3 MCHC 32.4 RDW 15.9 Plt Count 311 MPV 7.9 Neutrophils % 69.9 Lymphocytes % 21.2 D Monocytes % 8.6 Eosinophils % 0.1 Basophils % 0.2 Puncture Site ABG pH ABG pCO2 at Pt Temp ABG pO2 at Pt Temp ABG HCO3 ABG O2 Sat (Measured) ABG O2 Content ABG Base Excess Linden Test O2 Delivery Device Oxygen Flow Rate Vent Mode Vent Rate Mechanical Rate PEEP Pressure Support Vent Sodium 143 Potassium 3.8 D Chloride 108 H Carbon Dioxide 21 Anion Gap 14 BUN 60 H Creatinine 3.5 H Creat Clearance w eGFR 16.65 POC Glucometer 160.59024 Random Glucose 122 H Lactic Acid Calcium 7.2 L D Phosphorus 1.3 L Magnesium 1.3 L Total Bilirubin 0.5 D AST 23 D ALT 11 L D Alkaline Phosphatase 55 D Creatine Kinase Creatine Kinase Index CK-MB (CK-2) CK-MB (CK-2) Rel Index Troponin I Total Protein 4.1 L D Albumin 1.8 L D Random Vancomycin 11/27/16 11/27/16 11/27/16 00:30 00:58 05:20 WBC 14.1 H D RBC 3.04 L Hgb 8.8 L Hct 26.7 L MCV 87.8 MCHC 33.0 RDW 16.0 H Plt Count 293 MPV 7.9 Neutrophils % 80.1 Lymphocytes % 13.4 D Monocytes % 5.7 Eosinophils % 0.1 Basophils % 0.7 D Puncture Site ABG pH ABG pCO2 at Pt Temp ABG pO2 at Pt Temp ABG HCO3 ABG O2 Sat (Measured) ABG O2 Content ABG Base Excess Linden Test O2 Delivery Device Oxygen Flow Rate Vent Mode Vent Rate Mechanical Rate PEEP Pressure Support Vent Sodium Potassium Chloride Carbon Dioxide Anion Gap BUN Creatinine Creat Clearance w eGFR POC Glucometer 165.76605 Random Glucose Lactic Acid 6.000 H* Calcium Phosphorus Magnesium Total Bilirubin AST ALT Alkaline Phosphatase Creatine Kinase Creatine Kinase Index CK-MB (CK-2) CK-MB (CK-2) Rel Index Troponin I Total Protein Albumin Random Vancomycin 11/27/16 11/27/16 11/27/16 05:20 05:20 05:20 WBC RBC Hgb Hct MCV MCHC RDW Plt Count MPV Neutrophils % Lymphocytes % Monocytes % Eosinophils % Basophils % Puncture Site ABG pH ABG pCO2 at Pt Temp ABG pO2 at Pt Temp ABG HCO3 ABG O2 Sat (Measured) ABG O2 Content ABG Base Excess Linden Test O2 Delivery Device Oxygen Flow Rate Vent Mode Vent Rate Mechanical Rate PEEP Pressure Support Vent Sodium 135 L Potassium 3.7 Chloride 101 Carbon Dioxide 16 L D Anion Gap 18 H BUN 61 H Creatinine 3.8 H Creat Clearance w eGFR 15.14 POC Glucometer Random Glucose 144 H Lactic Acid Calcium 6.8 L* Phosphorus 2.3 L D Magnesium 1.3 L Total Bilirubin 0.5 AST 37 D ALT 15 D Alkaline Phosphatase 51 Creatine Kinase 789 H D Creatine Kinase Index CK-MB (CK-2) CK-MB (CK-2) Rel Index Cancelled Troponin I 0.41 H D Total Protein 4.2 L Albumin 1.7 L Random Vancomycin 8.869 11/27/16 11/27/16 05:50 07:20 WBC RBC Hgb Hct MCV MCHC RDW Plt Count MPV Neutrophils % Lymphocytes % Monocytes % Eosinophils % Basophils % Puncture Site Right radial ABG pH 7.26 L ABG pCO2 at Pt Temp 32.8 L ABG pO2 at Pt Temp 62.0 L D ABG HCO3 14.1 L* ABG O2 Sat (Measured) 87.9 L ABG O2 Content 10.5 L ABG Base Excess -11.6 L* Linden Test Positive O2 Delivery Device Vent Oxygen Flow Rate 100 Vent Mode A/c Vent Rate 16 Mechanical Rate Yes PEEP 7.0 Pressure Support Vent 425 Sodium Potassium Chloride Carbon Dioxide Anion Gap BUN Creatinine Creat Clearance w eGFR POC Glucometer 194.82119 Random Glucose Lactic Acid Calcium Phosphorus Magnesium Total Bilirubin AST ALT Alkaline Phosphatase Creatine Kinase Creatine Kinase Index CK-MB (CK-2) CK-MB (CK-2) Rel Index Troponin I Total Protein Albumin Random Vancomycin Assessment/Plan MOF Acute Respiratory Failure Suspected Aspiration Pneumonitis GI bleed Bowel Obstruction (?) Ischemic Bowel UTI Septic Shock TANESHA Lactic acidosis PLAN: Surgical evaluation noted Transfusional support IVF ABX per ID PPI Overall prognosis for meaningful survival is grave. In my opinion resuscitation in this scenario is medically futile. Dr Garnett CCTime 35"
[2016-11-27] MEDS: PANTOPRAZOLE SODIUM 100 ML IVPB SCH (12:05)
--- NOTE | 2016-11-27 12:17 | PN ---
Physical Exam: SUBJECTIVE: Patient seen and examined at bedside. Pt is sedated, intubated, on vent. No acute events overnight. OBJECTIVE: Vital Signs Temperature 98.6 F 11/27/16 09:52 Pulse Rate 108 H 11/27/16 11:39 Respiratory Rate 30 H 11/27/16 10:55 Blood Pressure 50/0 11/27/16 11:39 O2 Sat by Pulse Oximetry (%) 88 L 11/27/16 11:06 GENERAL: Sedated, on ventilator HEAD: Normal with no signs of trauma. BG EYES: Pupils equal, round and reactive to light, extraocular movements intact, sclera anicteric, conjunctiva clear NECK: Normal range of motion, supple without lymphadenopathy, JVD, or masses. LUNGS: Auscultated anteriorly, mechanically ventilated, rhonchi on L. HEART: Tachycardic, irregularly irregular. ABDOMEN: Soft, nontender, distented, hypoactive bowel sounds, no guarding, no rebound, no masses. LOWER EXTREMITIES: Cool to touch feet. R femoral line in place. NEUROLOGICAL: Sedated. PSYCHIATRIC: Sedated. SKIN: Warm, dry, normal turgor, no rashes or lesions noted. Laboratory Results - last 24 hr 11/26/16 11/26/16 11/26/16 10:30 10:30 10:30 WBC RBC Hgb Hct MCV MCHC RDW Plt Count MPV Neutrophils % Lymphocytes % Monocytes % Eosinophils % Basophils % Puncture Site ABG pH ABG pCO2 at Pt Temp ABG pO2 at Pt Temp ABG HCO3 ABG O2 Sat (Measured) ABG O2 Content ABG Base Excess Linden Test O2 Delivery Device Oxygen Flow Rate Vent Mode Vent Rate Mechanical Rate PEEP Pressure Support Vent Sodium Potassium Chloride Carbon Dioxide Anion Gap BUN Creatinine Creat Clearance w eGFR POC Glucometer Random Glucose Lactic Acid 5.255 H* Calcium Phosphorus Magnesium Total Bilirubin AST ALT Alkaline Phosphatase Creatine Kinase 252 D Creatine Kinase Index 4.2 CK-MB (CK-2) 10.638 H CK-MB (CK-2) Rel Index Cancelled Troponin I 0.08 H D Total Protein Albumin Random Vancomycin 11/26/16 11/26/16 11/26/16 13:16 15:45 16:46 WBC 8.2 D RBC 3.39 L Hgb 9.9 L Hct 29.7 L MCV 87.6 MCHC 33.3 RDW 15.8 Plt Count 380 MPV 8.5 Neutrophils % Lymphocytes % Monocytes % Eosinophils % Basophils % Puncture Site ABG pH ABG pCO2 at Pt Temp ABG pO2 at Pt Temp ABG HCO3 ABG O2 Sat (Measured) ABG O2 Content ABG Base Excess Linden Test O2 Delivery Device Oxygen Flow Rate Vent Mode Vent Rate Mechanical Rate PEEP Pressure Support Vent Sodium Potassium Chloride Carbon Dioxide Anion Gap BUN Creatinine Creat Clearance w eGFR POC Glucometer 163.22564 170.38029 Random Glucose Lactic Acid Calcium Phosphorus Magnesium Total Bilirubin AST ALT Alkaline Phosphatase Creatine Kinase Creatine Kinase Index CK-MB (CK-2) CK-MB (CK-2) Rel Index Troponin I Total Protein Albumin Random Vancomycin 11/26/16 11/26/16 11/26/16 21:15 21:15 21:52 WBC 7.4 RBC 3.08 L Hgb 8.8 L D Hct 27.2 L MCV 88.3 MCHC 32.4 RDW 15.9 Plt Count 311 MPV 7.9 Neutrophils % 69.9 Lymphocytes % 21.2 D Monocytes % 8.6 Eosinophils % 0.1 Basophils % 0.2 Puncture Site ABG pH ABG pCO2 at Pt Temp ABG pO2 at Pt Temp ABG HCO3 ABG O2 Sat (Measured) ABG O2 Content ABG Base Excess Linden Test O2 Delivery Device Oxygen Flow Rate Vent Mode Vent Rate Mechanical Rate PEEP Pressure Support Vent Sodium 143 Potassium 3.8 D Chloride 108 H Carbon Dioxide 21 Anion Gap 14 BUN 60 H Creatinine 3.5 H Creat Clearance w eGFR 16.65 POC Glucometer 160.67201 Random Glucose 122 H Lactic Acid Calcium 7.2 L D Phosphorus 1.3 L Magnesium 1.3 L Total Bilirubin 0.5 D AST 23 D ALT 11 L D Alkaline Phosphatase 55 D Creatine Kinase Creatine Kinase Index CK-MB (CK-2) CK-MB (CK-2) Rel Index Troponin I Total Protein 4.1 L D Albumin 1.8 L D Random Vancomycin 11/27/16 11/27/16 11/27/16 00:30 00:58 05:20 WBC 14.1 H D RBC 3.04 L Hgb 8.8 L Hct 26.7 L MCV 87.8 MCHC 33.0 RDW 16.0 H Plt Count 293 MPV 7.9 Neutrophils % 80.1 Lymphocytes % 13.4 D Monocytes % 5.7 Eosinophils % 0.1 Basophils % 0.7 D Puncture Site ABG pH ABG pCO2 at Pt Temp ABG pO2 at Pt Temp ABG HCO3 ABG O2 Sat (Measured) ABG O2 Content ABG Base Excess Linden Test O2 Delivery Device Oxygen Flow Rate Vent Mode Vent Rate Mechanical Rate PEEP Pressure Support Vent Sodium Potassium Chloride Carbon Dioxide Anion Gap BUN Creatinine Creat Clearance w eGFR POC Glucometer 165.80144 Random Glucose Lactic Acid 6.000 H* Calcium Phosphorus Magnesium Total Bilirubin AST ALT Alkaline Phosphatase Creatine Kinase Creatine Kinase Index CK-MB (CK-2) CK-MB (CK-2) Rel Index Troponin I Total Protein Albumin Random Vancomycin 11/27/16 11/27/16 11/27/16 05:20 05:20 05:20 WBC RBC Hgb Hct MCV MCHC RDW Plt Count MPV Neutrophils % Lymphocytes % Monocytes % Eosinophils % Basophils % Puncture Site ABG pH ABG pCO2 at Pt Temp ABG pO2 at Pt Temp ABG HCO3 ABG O2 Sat (Measured) ABG O2 Content ABG Base Excess Linden Test O2 Delivery Device Oxygen Flow Rate Vent Mode Vent Rate Mechanical Rate PEEP Pressure Support Vent Sodium 135 L Potassium 3.7 Chloride 101 Carbon Dioxide 16 L D Anion Gap 18 H BUN 61 H Creatinine 3.8 H Creat Clearance w eGFR 15.14 POC Glucometer Random Glucose 144 H Lactic Acid Calcium 6.8 L* Phosphorus 2.3 L D Magnesium 1.3 L Total Bilirubin 0.5 AST 37 D ALT 15 D Alkaline Phosphatase 51 Creatine Kinase 789 H D Creatine Kinase Index CK-MB (CK-2) CK-MB (CK-2) Rel Index Cancelled Troponin I 0.41 H D Total Protein 4.2 L Albumin 1.7 L Random Vancomycin 8.869 11/27/16 11/27/16 05:50 07:20 WBC RBC Hgb Hct MCV MCHC RDW Plt Count MPV Neutrophils % Lymphocytes % Monocytes % Eosinophils % Basophils % Puncture Site Right radial ABG pH 7.26 L ABG pCO2 at Pt Temp 32.8 L ABG pO2 at Pt Temp 62.0 L D ABG HCO3 14.1 L* ABG O2 Sat (Measured) 87.9 L ABG O2 Content 10.5 L ABG Base Excess -11.6 L* Linden Test Positive O2 Delivery Device Vent Oxygen Flow Rate 100 Vent Mode A/c Vent Rate 16 Mechanical Rate Yes PEEP 7.0 Pressure Support Vent 425 Sodium Potassium Chloride Carbon Dioxide Anion Gap BUN Creatinine Creat Clearance w eGFR POC Glucometer 194.48286 Random Glucose Lactic Acid Calcium Phosphorus Magnesium Total Bilirubin AST ALT Alkaline Phosphatase Creatine Kinase Creatine Kinase Index CK-MB (CK-2) CK-MB (CK-2) Rel Index Troponin I Total Protein Albumin Random Vancomycin Microbiology 11/26/16 06:45 Urine - Urine Mattson Urine Culture - Final Contaminated: Please Repeat 11/26/16 05:30 Blood - Peripheral Venous Blood Culture - Preliminary NO GROWTH OBTAINED AFTER 24 HOURS, INCUBATION TO CONTINUE FOR 4 DAYS. 11/26/16 05:30 Blood - Peripheral Venous Blood Culture - Preliminary NO GROWTH OBTAINED AFTER 24 HOURS, INCUBATION TO CONTINUE FOR 4 DAYS. 11/26/16 07:30 Nasopharyngeal Swab Respiratory Virus Panel - Preliminary 11/26/16 07:30 Nasopharyngeal Swab Influenza Types A,B Antigen (BEATRIZ) - Final 11/26/16 07:30 Nasopharyngeal Swab - Final Active Medications Generic Name Dose Route Start Last Admin Trade Name Freq PRN Reason Stop Dose Admin Acetaminophen 1,000 mg 11/26/16 07:27 Ofirmev Injection - IVPB ONCE PRN FEVER Chlorhexidine Gluconate 1 applic 11/26/16 22:00 11/26/16 22:50 Hibiclens For Decolonization - TP 1 applic HS NATHALIA Administration Norepinephrine Bitartrate 4, 500 mls @ 37.5 mls/hr 11/26/16 05:45 11/27/16 11: 26 000 mcg/ Dextrose IV 225 mls/hr TITR NATHALIA Administration Protocol 5 MCG/MIN Fentanyl 500 mcg/ Dextrose 100 mls @ 5 mls/hr 11/26/16 07:00 11/27/16 11:22 IJ Not Given TITR ANTHALIA 25 MCG/HR Lactated Ringer's 1,000 mls @ 100 mls/hr 11/26/16 07:15 11/27/16 10:59 Lactated Ringers Solution IV 100 mls/hr ASDIR NATHALIA Administration Piperacillin Sod/Tazobactam Sod 50 mls @ 100 mls/hr 11/26/16 18:00 11/27/16 09: 42 Zosyn 2.25gm Ivpb (Pre-Docked) IVPB 100 mls/hr Q8H-IV NATHALIA Administration Phenylephrine HCl 20,000 mcg/ 250 mls @ 75 mls/hr 11/26/16 20:30 11/27/16 11:39 Sodium Chloride IVPB 75 mls/hr ASDIR NATHALIA Administration Protocol 100 MCG/MIN Pantoprazole Sodium 100 mls @ 200 mls/hr 11/27/16 11:30 Protonix 40mg Ivpb (Pre-Docked) IVPB DAILY [facility] Insulin Aspart 1 vial 11/26/16 18:15 11/27/16 08:17 Novolog Vial Sliding Scale - SQ Not Given Q6HPO [facility] Protocol Mupirocin 1 applic 11/26/16 10:00 11/27/16 11:20 Bactroban Ointment (For Decolonization) - NS 12/01/16 09:59 1 applic BID [facility] Administration ASSESSMENT/PLAN: 86 y/o M from [facility] w/PMH of DM, GI hemorrhage, ckd, dementia, anemia, suprapubic catheter presented to the ER due to being found unresponsive with O2 sat of 71%. -Severe sepsis secondary to UTI vs PNA -WBC 14.1, tachycardic -received vanco/zosyn/azithro in ER -c/w vanco/zosyn as per ID; Random vanco: 8.8 -on levophed 30 mcg/min; phenylephrine; LR@ 100ml/hr; keep MAP>65 -UA: 3+ LE, 856 WBC; hx of proteus and ESBL in urine in past -Lactic acid: 6; trending up, continue to monitor -CXR shows increasing congestion -BCx(-) x 24hrs -UCx contaminated -CXR in AM; f/u Resp Virus Panel -Rapid Flu negative -ID on board -Elevated Troponin -trops elevated most likely secondary to demand ischemia -Echo -Acute Respiratory failure secondary to PNA / sepsis -CXR shows worsening congestive changes -on ventilator. sedated on midazolam and fentanyl -c/w vanco/zosyn -f/u SpCx -ABG in AM, CXR in AM -sedation vacations in AM -Anemia secondary to Upper GI bleed -coffee ground aspirate via NGT -Recommend starting pt on protonix drip -Abd XR: Distended bowel. Possible small bowel or partial small obstruction. -Hgb: 8.8 currently, no baseline available in charts -received 1 unit PRBC so far. -GI on board, recommends CT abd w/contrast if pt becomes stable -TANESHA on CKD secondary to sepsis -BUN/Cr: 61/3.8, worsening -No baseline Cr in charts -monitor BUN/Cr -DM -Monitor BGMs -HTN -hold anti-hypertensives (metoprolol tartrate 25 mg bid) in light of septic shock -FEN -LR @ 100 ml/hr; keep MAP>65 -hyponatremia, monitor lytes, monitor tele -NPO -Dispo: -Admit to ICU -HCP appointed by state, ethics, palliative. Problem List - Problems (1) GI bleed Code(s): K92.2 - GASTROINTESTINAL HEMORRHAGE, UNSPECIFIED (2) Multiple drug resistant organism (MDRO) culture positive Code(s): Z16.24 - RESISTANCE TO MULTIPLE ANTIBIOTICS (3) Pneumonia Code(s): J18.9 - PNEUMONIA, UNSPECIFIED ORGANISM (4) Sepsis Code(s): A41.9 - SEPSIS, UNSPECIFIED ORGANISM Qualifiers: Sepsis type: sepsis due to unspecified organism Qualified Code(s): A41.9 - Sepsis, unspecified organism (5) Urinary tract infection Code(s): N39.0 - URINARY TRACT INFECTION, SITE NOT SPECIFIED Qualifiers: Urinary tract infection type: site unspecified Hematuria presence: without hematuria Qualified Code(s): N39.0 - Urinary tract infection, site not specified Visit type - Emergency Visit Emergency Visit: Yes ED Registration Date: 11/26/16 Care time: The patient presented to the Emergency Department on the above date and was hospitalized for further evaluation of their emergent condition. - New Patient This patient is new to me today: No - Critical Care Critical Care patient: Yes Total Critical Care Time (in minutes): 35 Critical Care Statement: The care of this patient involved high complexity decision making to prevent further life threatening deterioration of the patient 's condition and/or to evalute & treat vital organ system(s) failure or risk of failure.
--- NOTE | 2016-11-27 13:54 | PN ---
Progress Note, Physician History of Present Illness: Sedated on ventilator Hypotensive on pressors Afebrile WBC elevated Blood c/s no growth Urine c/s contaminated - Current Medication List Current Medications: Active Medications Acetaminophen (Ofirmev Injection -) 1,000 mg IVPB ONCE PRN PRN Reason: FEVER Chlorhexidine Gluconate (Hibiclens For Decolonization -) 1 applic TP HS NATHALIA Last Admin: 11/26/16 22:50 Dose: 1 applic Norepinephrine Bitartrate 4, (000 mcg/ Dextrose) 500 mls @ 37.5 mls/hr IV TITR NATHALIA; 5 MCG/MIN PRN Reason: Protocol Last Admin: 11/27/16 11:26 Dose: 225 mls/hr Fentanyl 500 mcg/ Dextrose 100 mls @ 5 mls/hr IJ TITR NATHALIA PRN Reason: 25 MCG/HR Last Admin: 11/27/16 11:22 Dose: Not Given Lactated Ringer's (Lactated Ringers Solution) 1,000 mls @ 100 mls/hr IV ASDIR NATHALIA Last Admin: 11/27/16 10:59 Dose: 100 mls/hr Piperacillin Sod/Tazobactam Sod (Zosyn 2.25gm Ivpb (Pre-Docked)) 50 mls @ 100 mls/hr IVPB Q8H-IV NATHALIA Last Admin: 11/27/16 09:42 Dose: 100 mls/hr Phenylephrine HCl 20,000 mcg/ (Sodium Chloride) 250 mls @ 75 mls/hr IVPB ASDIR NATHALIA; 100 MCG/MIN PRN Reason: Protocol Last Admin: 11/27/16 11:39 Dose: 75 mls/hr Pantoprazole Sodium (Protonix 40mg Ivpb (Pre-Docked)) 100 mls @ 200 mls/hr IVPB DAILY NATHALIA Last Admin: 11/27/16 12:05 Dose: 200 mls/hr Insulin Aspart (Novolog Vial Sliding Scale -) 1 vial SQ Q6HPO NATHALIA PRN Reason: Protocol Last Admin: 11/27/16 12:02 Dose: Not Given Mupirocin (Bactroban Ointment (For Decolonization) -) 1 applic NS BID NATHALIA Stop: 12/01/16 09:59 Last Admin: 11/27/16 11:20 Dose: 1 applic - Objective Vital Signs: Vital Signs Temperature 98.4 F 11/27/16 12:43 Pulse Rate 107 H 11/27/16 12:43 Respiratory Rate 31 H 11/27/16 12:43 Blood Pressure 80/42 11/27/16 12:43 O2 Sat by Pulse Oximetry (%) 88 L 11/27/16 11:52 Constitutional: Yes: No Distress Eyes: Yes: Conjunctiva Clear Cardiovascular: Yes: Regular Rate and Rhythm, Tachycardia, S1, S2 Respiratory: Yes: Mechanically Ventilated Gastrointestinal: Yes: Normal Bowel Sounds, Soft. No: Tenderness Edema: Yes Edema: LLE: 1+, RLE: 1+ Labs: CBC, BMP 11/27/16 05:20 11/27/16 05:20 INR, PTT INR 1.19 (0.82-1.09) H 11/26/16 08:00 Assessment/Plan Sepsis/ septic shock Multiorgan failure Respiratory failure/ pneumonia Renal failure UTI Neurogenic bladder Continue empiric zosyn, ventilatory/ hemodynamic support Prognosis guarded
--- NOTE | 2016-11-27 15:19 | PN ---
Addendum entered and electronically signed by Alber Rivera RES 11/28/16 10:12: physical exam from yesterday not entered in error Constitutional: Yes: Other (intubated sedated overbreathing the ventilator) Eyes: Yes: Conjunctiva Clear HENT: Yes: Atraumatic Neck: Yes: Trachea Midline Cardiovascular: Yes: Tachycardia Respiratory: Yes: Diminished, Intubated, Mechanically Ventilated, Rhonchi Gastrointestinal: Yes: Abdomen, Obese, Distention, Palpable Mass (likely an umbilical hernia) Genitourinary: Yes: Other (suprapubic cathter in place) Extremities: Yes: Cool Edema: No Neurological: Yes: Other (sedated) Original Note: Progress Note, Physician History of Present Illness: patient seen and examined at bedside in the ICU - Current Medication List Current Medications: Active Medications Acetaminophen (Ofirmev Injection -) 1,000 mg IVPB ONCE PRN PRN Reason: FEVER Chlorhexidine Gluconate (Hibiclens For Decolonization -) 1 applic TP HS NATHALIA Last Admin: 11/26/16 22:50 Dose: 1 applic Norepinephrine Bitartrate 4, (000 mcg/ Dextrose) 500 mls @ 37.5 mls/hr IV TITR NATHALIA; 5 MCG/MIN PRN Reason: Protocol Last Admin: 11/27/16 11:26 Dose: 225 mls/hr Fentanyl 500 mcg/ Dextrose 100 mls @ 5 mls/hr IJ TITR NATHALIA PRN Reason: 25 MCG/HR Last Admin: 11/27/16 11:22 Dose: Not Given Lactated Ringer's (Lactated Ringers Solution) 1,000 mls @ 100 mls/hr IV ASDIR NATHALIA Last Admin: 11/27/16 10:59 Dose: 100 mls/hr Piperacillin Sod/Tazobactam Sod (Zosyn 2.25gm Ivpb (Pre-Docked)) 50 mls @ 100 mls/hr IVPB Q8H-IV NATHALIA Last Admin: 11/27/16 09:42 Dose: 100 mls/hr Phenylephrine HCl 20,000 mcg/ (Sodium Chloride) 250 mls @ 75 mls/hr IVPB ASDIR NATHALIA; 100 MCG/MIN PRN Reason: Protocol Last Admin: 11/27/16 11:39 Dose: 75 mls/hr Pantoprazole Sodium (Protonix 40mg Ivpb (Pre-Docked)) 100 mls @ 200 mls/hr IVPB DAILY [facility] Last Admin: 11/27/16 12:05 Dose: 200 mls/hr Insulin Aspart (Novolog Vial Sliding Scale -) 1 vial SQ Q6HPO NATHALIA PRN Reason: Protocol Last Admin: 11/27/16 12:02 Dose: Not Given Mupirocin (Bactroban Ointment (For Decolonization) -) 1 applic NS BID NATHALIA Stop: 12/01/16 09:59 Last Admin: 11/27/16 11:20 Dose: 1 applic - Objective Vital Signs: Vital Signs Temperature 98.4 F 11/27/16 12:43 Pulse Rate 107 H 11/27/16 14:59 Respiratory Rate 31 H 11/27/16 14:59 Blood Pressure 66/40 11/27/16 14:59 O2 Sat by Pulse Oximetry (%) 90 L 11/27/16 15:00 Labs: CBC, BMP 11/27/16 05:20 11/27/16 05:20 INR, PTT INR 1.19 (0.82-1.09) H 11/26/16 08:00 Assessment/Plan 86M with multiple medical problems presents to the ED Pt is an 86yr old man with PMHx including DM, dementia, PEG tube (now reversed) , suprapubic bladder catheter with recurrent UTIs, GI bleed and anemia. Now in the ICU for management of septic shock with associated respiratory failure secondary to HCAP, and metabolic acidosis in setting of TANESHA. Septic shock secondary to pneumonia vs UTI. 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 likely source of sepsis is health care acquired pneumonia. Pneumonia also likely cause for patient's acute hypoxic respiratory failure. hx of proteus and ESBL in urine , both sensitive to Zosyn. Leuokocystosis multiorgan failure Lactic acidosis could be due to ischemic bowel possible anoxic brain injury continue ventilatory support Wean FiO2 as tolerated spontaneous breathing trial when hemodynamically stable continue pressors for BP support f/u cultures ID consult appreciated continue zosyn vanco level in AM trend lactic acid. patient has lactic acidosis/Metabolic acidosis continue fentanyl gtt for pain control hold off on steroids for now repeat CXR in AM vanco by level continue levophed and neosynephrine as needed Cardiovascular hold antihypertensives at this time patient is hypotensive and in septic shock fluid resuscitation will eventually need a TLC for CVP monitoring GI: GI bleed, SBO vs partial SBO possible ischemic bowel in the setting of hypotension from septic shock transfuse PRN trend CBC so far Hb stable has coffee ground emesis from NG tube trend Abdominal XR will repeat in AM GI consult appreciated protonix will need CT scan with PO/IV contrast when hemodynamically stable surgery consult noted and appreciated no intervention at this time Acute on chronic renal failure treat underlying sepsis Volume resuscitate Strict I/Os Replete electrolytes prn Monitor BUN/Cr Renally dose medications DM: BGM q6h ISS PPx: SCDs protonix PT consult when stable and can participate FEN: LR @ 100ml/hr with boluses PRN hyperkalemia/hypernatremia-both resolved NPO for now Grave prognosis. very poor chance for any meaningful recovery this was discussed with daughter HCP appointed by law need clarification pallitave care on board ethics committee consult MOF Acute Respiratory Failure Suspected Aspiration Pneumonitis GI bleed Bowel Obstruction (?) Ischemic Bowel UTI Septic Shock TANESHA Lactic acidosis
[2016-11-27] MEDS ORDERED: morphine CARPU-JECT 2 MG/1 ML DISP.SYRIN IVPUSH PRN (16:31)
--- NOTE | 2016-11-27 16:59 | ETH ---
Ethics Committee Report: Consult initiated by Ada Caba on 11/26/16 at 16:58 on behalf of 86 year-old patient, David Snider, to determine appropriate decision makers for end -of-life treatment decisions. Mr. Snider has two co-guardians (one his daughter, Darshana Tavares; the other an cafeteria supervisor, Akshat Montes). According to [facility] guardianship law, guardians cannot make the decision to withdraw life-sustaining treatment except under specific conditions. Ethics consult to explore those conditions is on hold pending input from Risk Management/Legal Liaison.
--- NOTE | 2016-11-27 17:38 | PN ---
Teaching Attending Note Name of Resident: Dale Chowdhury ATTENDING PHYSICIAN STATEMENT I saw and evaluated the patient. I reviewed the resident's note and discussed the case with the resident. I agree with the resident's findings and plan as documented. SUBJECTIVE:intubated/sedated OBJECTIVE: Last Vital Signs Temp Pulse Resp BP Pulse Ox 98.5 F 108 H 23 78/41 97 11/27/16 16:00 11/27/16 16:00 11/27/16 16:28 11/27/16 16:00 11/27/16 16:41 Intake & Output 11/24/16 11/25/16 11/26/16 11/27/16 23:59 23:59 23:59 23:59 Intake Total 12213.5 2935.5 Output Total 2495 130 Balance 8427.5 2805.5 Weight 165 lb 181 lb 10.574 oz General intubated, no gag reflex or corneal reflex CV S1 S2 + Lungs course breath sounds diffusely Abdomen soft +distention NT hypoactive BS Extremities trace pitting edema ASSESSMENT AND PLAN: 86yr old man with PMHx including DM, dementia, PEG tube (now reversed), suprapubic bladder catheter with recurrent UTIs, GI bleed and anemia presented to the ER and was admitted for further evaluation of their emergent condition 1 Septic shock with multiorgan dysfunction- due to UTI and possible aspiration PNA. on 2 pressors, Levo and phenylephrine. + lactic acidosis. IVF, on vanco by level/zosyn. ID on board. hx of ESBL UTI but likely colonization. contact precautions 2. Acute respiratory failure- s/p intubation. requiring full vent support. Vent management per ICU team 3. AG metabolic acidosis- due to lactic acidosis from septic shock. 4. Demand ischemia- likely in setting of sepsis. check echo. trend troponins until peak. hold heparin ggt as likely in the setting of possible GI bleed. also poor overall prognosis, not candidate for intervention 5. Upper GI bleed- evaluated by GI and does not think its active bleeding at this time. continues to have active coffee ground emesis. surgery consulted. plan is for CT scan once medically stablized. cont PPI 6. TANESHA- unknown baseline. meraz in place. monitor I&O. 7. hypophophatemia- kphos 8. Hypomagnesmia- Mg IV 9. Poor overall prognosis. palliative care and ethics consulted. The care of this patient involved high complexity decision making to prevent further life threatening deterioration of the patient's condition and/or to evalute & treat vital organ system(s) failure or risk of failure. critical care time 45 minutes
[2016-11-27] MEDS: NOREPINEPHRINE BITARTRATE 8,000 MCG in DEXTROSE 5%-WATER - 492 ML IV SCH (21:00)
[2016-11-27] MEDS: CHLORHEXIDINE GLUCONATE 4% CLEANSER FOR DECOLONIZATION TP SCH (22:30)
[2016-11-28] MEDS: PIPERACILLIN/TAZOB 2.25 GM 50 ML IVPB SCH ×3 (01:49→17:52)
[2016-11-28] MEDS: PHENYLEPHRINE HCL 20,000 MCG in SODIUM CHLORIDE 248 ML IVPB SCH ×3 (02:00→19:45)
[2016-11-28] MEDS ORDERED: PHENYLEPHRINE HCL 10 MG/1 ML SINGLE DOSE VIAL ONE ×5 (05:13→19:28)
[2016-11-28] MEDS ORDERED: NOREPINEPHRINE BITARTRATE 4 MG/4 ML ML IV ONE ×4 (05:13→19:28)
[2016-11-28 06:00] LABS: MCH 28.9 pg (25.7-33.7); MCHC 33.3 g/dl (32.0-35.9); MEAN CELL VOLUME 86.9 fl (80-96); MEAN PLT VOLUME 7.8 fl (7.5-11.1); PLATELET COUNT 223 K/MM3 (134-434); RDW 15.6 % (11.9-15.9); WHITE BLOOD COUNT 12.9 K/mm3 (4.0-10.0)
[2016-11-28] MEDS: INSULIN SLIDING SCALE (NOVOLOG) 1 VIAL SQ SCH ×2 (06:12→12:23)
[2016-11-28 06:16] LABS: INR 1.36 (0.82-1.09); PROTHROMBIN TIME (PATIENT) 15.1 SEC (9.98-11.88)
[2016-11-28] MEDS: NOREPINEPHRINE BITARTRATE 8,000 MCG in DEXTROSE 5%-WATER - 492 ML IV SCH ×2 (06:16→20:00)
[2016-11-28 06:19] LABS: ACTIVATED PTT 36.1 SECONDS (26.9-34.4)
[2016-11-28 06:30] LABS: ALBUMIN 1.6 g/dl (3.4-5.0); BILIRUBIN,TOTAL 0.4 mg/dL (0.2-1.0); CREATININE 3.9 mg/dL (0.7-1.3); MAGNESIUM 1.2 mg/dL (1.8-2.4); PHOSPHOROUS 4.1 mg/dL (2.5-4.9); TOT PROT 4.1 g/dl (6.4-8.2)
[2016-11-28] MEDS: FENTANYL INJECTION 500 MCG in DEXTROSE 5%-WATER - 90 ML IJ SCH (06:58)
[2016-11-28 07:33] LABS: ALLENS TEST POSITIVE; ART PUNCT SITE LEFT RADIAL; ARTERIAL BLD GAS O2 SATURATION 98.6 % (90-98.9); ARTERIAL BLOOD GAS BASE EXCESS -14.3 meq/l (-2-2); ARTERIAL BLOOD GAS HCO3 11.5 meq/L (22-26); LPM/O2% 100%; MECH. VENT. YES; PT. ON O2? YES; TYPE OF O2 VENT
[2016-11-28 07:34] LABS: ARTERIAL BLOOD GAS pH 7.24 (7.35-7.45); VENT RATE 16; VT/PRESS 425
--- NOTE | 2016-11-28 08:07 | MSN ---
[id number] History of Present Illness: Pt is unresponsive, HPI obtained from medical records. Pt is a 86 yo white male with a PMHx of DM, CKD, dementia, anemia, GI hemorrhage , and suprapubic catheter placement with recurrent UTIs, that was BIBA to the ER early the morning of 11/26/16 after being found unresponsive in his fci apt with a low oxygen saturation of 71%. Per [place] records, the pt suprapubic catheter was clogged the day before and subsequently a meraz catheter was placed with minimal output. Pt was intubated in the ER with BPs in the 50-70s/ 40s, HR in the 90s, afebrile, and a output of ~400mL coffee ground emesis via NGT. Pt is currently on IV pressors, IV sedation, and IVF. Phenylephrine 100 mcg /hr, NE 30 mcg/hr, Fentanyl 25 mcg/hr, LRs 100 ml/hr. Pt was taken off Versed 11/26/16. Automatic cuff reading systolic BPs in the 70s. Yesterday afternoon, palliative care and ethics met with pt daughter who is coguardian. - Current Medications Current Medications: Active Medications Acetaminophen (Ofirmev Injection -) 1,000 mg IVPB ONCE PRN PRN Reason: FEVER Chlorhexidine Gluconate (Hibiclens For Decolonization -) 1 applic TP HS NATHALIA Last Admin: 11/27/16 22:30 Dose: 1 applic Fentanyl 500 mcg/ Dextrose 100 mls @ 5 mls/hr IJ TITR NATHALIA PRN Reason: 25 MCG/HR Last Admin: 11/28/16 06:58 Dose: Not Given Lactated Ringer's (Lactated Ringers Solution) 1,000 mls @ 100 mls/hr IV ASDIR NATHALIA Last Admin: 11/27/16 23:00 Dose: 100 mls/hr Piperacillin Sod/Tazobactam Sod (Zosyn 2.25gm Ivpb (Pre-Docked)) 50 mls @ 100 mls/hr IVPB Q8H-IV NATHALIA Last Admin: 11/28/16 01:49 Dose: 100 mls/hr Phenylephrine HCl 20,000 mcg/ (Sodium Chloride) 250 mls @ 75 mls/hr IVPB ASDIR NATHALIA; 100 MCG/MIN PRN Reason: Protocol Last Admin: 02/08/17 06:15 Dose: 75 mls/hr Pantoprazole Sodium (Protonix 40mg Ivpb (Pre-Docked)) 100 mls @ 200 mls/hr IVPB DAILY NATHALIA Last Admin: 11/27/16 12:05 Dose: 200 mls/hr Norepinephrine Bitartrate 8, (000 mcg/ Dextrose) 500 mls @ 18.75 mls/hr IV TITR NATHALIA; 5 MCG/MIN PRN Reason: Protocol Last Admin: 11/28/16 06:16 Dose: 112.5 mls/hr Insulin Aspart (Novolog Vial Sliding Scale -) 1 vial SQ Q6HPO NATHALIA PRN Reason: Protocol Last Admin: 11/28/16 06:12 Dose: Not Given Morphine Sulfate (Morphine Injection -) 2 mg IVPUSH Q3H PRN PRN Reason: PAIN Last Admin: 11/27/16 18:08 Dose: 2 mg Mupirocin (Bactroban Ointment (For Decolonization) -) 1 applic NS BID NATHALIA Stop: 12/01/16 09:59 Last Admin: 11/27/16 22:30 Dose: 1 applic - Objective Vital Signs: Vital Signs Temperature 99.8 F H 11/28/16 06:00 Pulse Rate 108 H 11/28/16 07:00 Respiratory Rate 33 H 11/28/16 07:00 Blood Pressure 77/37 11/28/16 07:00 O2 Sat by Pulse Oximetry (%) 97 11/28/16 06:00 Constitutional: Yes: Other (Intubated/sedated) Eyes: Yes: Conjunctiva Clear HENT: Yes: Atraumatic, Normocephalic Neck: Yes: Trachea Midline Cardiovascular: Yes: Tachycardia, S1, S2, Other (Regular rhythm). No: JVD, Murmur, Rub Respiratory: Yes: Intubated, Mechanically Ventilated, Tachypnea, Other (Coarse breath sounds BL, L>R) Gastrointestinal: Yes: Abdomen, Obese, Distention, Hypoactive Bowel Sounds ( Minimal if any bowel sounds in 4/4 quadrants), Other (NGT to LWS producing coffee ground emesis) Genitourinary: Yes: Anuria, Meraz Present (Suprapubic and meraz) Musculoskeletal: Yes: Muscle Weakness Extremities: Yes: Cold, Cool, Delayed Capillary Refill, Pallor Peripheral Pulses WNL: No (DP/PT cannot be palpated) Peripheral Pulses: Left Radial: 2+, Right Radial: 2+, Left Doralis Pedis: 0, Right Dorsalis Pedis: 0 Edema: Yes (BL LE up to the femur) Edema: LLE: 1+, RLE: 1+ Neurological: Yes: Unresponsive (to vocal, tactile, and painful stimuli). No: WNL, Alert, Oriented Psychiatric: Yes: Other (Unresponsive) Labs Lab Results: CBC, BMP 11/28/16 05:15 11/28/16 05:15 Imaging - Results Chest X-ray: Report Reviewed, Image Reviewed X-ray: Report Reviewed, Image Reviewed Other: Report Reviewed (ECHO) Problem List - Problems (1) GI bleed Code(s): K92.2 - GASTROINTESTINAL HEMORRHAGE, UNSPECIFIED (2) Pneumonia Code(s): J18.9 - PNEUMONIA, UNSPECIFIED ORGANISM (3) Sepsis Code(s): A41.9 - SEPSIS, UNSPECIFIED ORGANISM Qualifiers: Sepsis type: sepsis due to unspecified organism Qualified Code(s): A41.9 - Sepsis, unspecified organism (4) Suprapubic catheter dysfunction Code(s): T83.018A - BREAKDOWN (MECHANICAL) OF OTHER URINARY CATHETER, INIT Qualifiers: Encounter type: initial encounter Qualified Code(s): T83.018A - Breakdown (mechanical) of other indwelling urethral catheter, initial encounter (5) Urinary tract infection Code(s): N39.0 - URINARY TRACT INFECTION, SITE NOT SPECIFIED Qualifiers: Urinary tract infection type: site unspecified Hematuria presence: without hematuria Qualified Code(s): N39.0 - Urinary tract infection, site not specified Assessment/Plan Pt is an 86 yo M with PMHx including DM, dementia, suprapubic bladder catheter with recurrent UTIs, GI bleed, and anemia. Currently in the ICU for management of septic shock secondary to UTI vs. HCAP, with associated respiratory failure and metabolic acidosis in the setting of lactic acidosis. 1. Septic shock with MOF -Likely secondary to HCAP vs. UTI (Hx of ESBL sensitive to Zosyn) -IV ABX (azithromycin, zosyn, vancomycin) given in the ER -ID consult appreciated -Urine Cx X2 were contaminated. Pt likely colonized -Blood Cx showed no growth after 48 hrs -Resp. virus panel pending -Zosyn and vancomycin started on 11/26/16 -Vanco level 8.869 (11/27/16) -Repeat Vanco level in AM -CV support with IVF (LRs 100mls/hr), pressors (Phenylephrine 100mcg/hr, Levophed 100mcg/hr) -BPs stable since yesterday withy systolic in the 50-70s 2. Respiratory failure -Cont. mechanical ventilation in order to maintain O2 sat >94% -Current vent settings: 425 TV, 16 Rate, 100% FiO2, +5 PEEP -FiO2 can be decreased as most recent ABG shows PaO2 of 144 -Vent management per ICU team 3. Metabolic acidosis -Secondary to lactic acidosis from septic shock -Cont. IVF to volume resuscitate, LRs running at 100 mls/hr -Monitor BUN/Cr -Monitor BMP, replete electrolytes as needed -Trend lactic acid -Repeat ABG in AM 4. Demand ischemia -Likely secondary to septic shock -Cont. to trend troponins -ECHO performed, report reviewed. Nml LV systolic fxn, increased RV pressure (30 -40) 5. GI bleed -GI consult appreciated -Cont. NGT to LWS -Protonix 40mg IVPB -2 units PRBCs ordered, 1 unit issued, transfuse PRN -Hgb stable for now -Plan is CT abd once medically stable 6. Hypoglycemia -Most recent BMP shows glucose of 55 -Pt NPO since admission -Switch LRs to D5LR to replenish glucose 7. Hypocalcemia -Corrected calcium of 7.9 -Replenish to achieve calcium of 8.5 8. Hypomagnesemia -Replenish with Mg IV 9. Hyponatremia -Monitor 10. Poor overall prognosis -Palliative care and ethics consult appreciated Dustin Duncan, MS3
[2016-11-28] MEDS: LACTATED RINGERS SOLUTION 1,000 ML IV SCH (09:04)
--- NOTE | 2016-11-28 09:23 | PN ---
Progress Note (short form) - Note Progress Note: ETHICS As a followup to Reverend Stratton's note of 11/27/16, I have reviewed the medical records and Guardianship papers for Mr. David Snider. The patient continues to be critically ill with Septic Shock, renal failure and Respiratory Failure. Other diagnose such as ischemia of the bowel have been suggested. In a patient with multiple serious previous illnesses such as DM and Dementia the prognosis for survival is very poor. He remains in the ICU. He has Co-Guardians; one of whom is his daughter. Whether or not the patients prior wishes are know it would seem likely that the patient's best interests would not be served by not allowing a DNR to be ordered because a Cardiac Resuscitation would ONLY serve to cause more suffering and injury such as Rib Fractures on this frail , critically ill patient. Even if a heartbeat would by temporarily resuscitated I would predict that another cardiac arrest would then occur minutes or hours later inflicting more suffering to the patient. It would not serve the patients best interests or be a consideration of the dignity or uniqueness of this critically patient to allow cardiac resuscitation. In no way , in my opinion, would it in any way restore or preserve or improve even his previous level of function. I would also argue that if the Co-Guardians decide on comfort care that decision also should be honored. Diogenes Garcia Ethics and Palliative Care
[2016-11-28] MEDS: PANTOPRAZOLE SODIUM 100 ML IVPB SCH (09:25)
[2016-11-28] MEDS: MUPIROCIN 2% TOPICAL OINTMENT FOR DECOLONIZATION NS SCH ×2 (10:14→22:45)
[2016-11-28] MEDS ORDERED: SODIUM CHLORIDE 1,000 ML IV SCH (10:15)
--- NOTE | 2016-11-28 10:43 | PN ---
Teaching Attending Note Name of Resident: Dale Chowdhury ATTENDING PHYSICIAN STATEMENT I saw and evaluated the patient. I reviewed the resident's note and discussed the case with the resident. I agree with the resident's findings and plan as documented. SUBJECTIVE:intubated OBJECTIVE: Last Vital Signs Temp Pulse Resp BP Pulse Ox 98.1 F 106 H 32 H 73/38 94 L 11/28/16 10:00 11/28/16 10:00 11/28/16 10:00 11/28/16 10:00 11/28/16 09:30 Intake & Output 11/25/16 11/26/16 11/27/16 11/28/16 23:59 23:59 23:59 23:59 Intake Total 86412.5 9212.5 2119 Output Total 2495 1190 380 Balance 8427.5 8022.5 1739 Weight 165 lb 181 lb 10.574 oz 194 lb 14.218 oz General intubated, no gag reflex or corneal reflex CV S1 S2 + Lungs course breath sounds diffusely Abdomen fim distended, no BS, tympanic Extremities trace pitting edema ASSESSMENT AND PLAN: 86yr old man with PMHx including DM, dementia, PEG tube (now reversed), suprapubic bladder catheter with recurrent UTIs, GI bleed and anemia presented to the ER and was admitted for further evaluation of their emergent condition 1 Septic shock with multiorgan dysfunction- due to UTI and possible aspiration PNA. remains on 2 pressors. titrate to maintain MAP >60. continues to have lactic acidosis. cont IVF, vanco by level/zosyn day 3. contact precautions 2. Acute respiratory failure- s/p intubation. requiring full vent support. titrate down FiO2 as tolerated. Vent management per ICU team 3. AG metabolic acidosis- due to lactic acidosis from septic shock vs obstruction. compensated. cont to trend troponins 4. Demand ischemia- likely in setting of sepsis. echo reviewed. trend troponins until peak. not candidate for intervention 5. Upper GI bleed- with concerns of possible obstruction. unable to obtain CT scan as pt is too unstable at this time. will get KUB stat and evaluate. no BM since presentation and change in abdominal exam. surgery on board. cont PPI 6. Hypoglycemia- switch IVF to D5LR. monitor 7. Hypocalcemia- Corrected Ca 7.9. will give calcium carbonate 1g. 8. TANESHA with oliguria- unknown baseline. meraz in place. cont IV hydration. monitor I&O. 9. hypophophatemia-resolved 10. Hypomagnesmia- Mg IV 11. Poor overall prognosis. palliative care and ethics consulted. appreciate their input and agree with their decision. will await family to arrive and decision making. The care of this patient involved high complexity decision making to prevent further life threatening deterioration of the patient's condition and/or to evalute & treat vital organ system(s) failure or risk of failure. critical care time 45 minutes
--- NOTE | 2016-11-28 10:49 | PN ---
Progress Note, Physician Chief Complaint: ID Remains intubated Zosyn - Current Medication List Current Medications: Active Medications Acetaminophen (Ofirmev Injection -) 1,000 mg IVPB ONCE PRN PRN Reason: FEVER Chlorhexidine Gluconate (Hibiclens For Decolonization -) 1 applic TP HS NATHALIA Last Admin: 11/27/16 22:30 Dose: 1 applic Fentanyl 500 mcg/ Dextrose 100 mls @ 5 mls/hr IJ TITR NATHALIA PRN Reason: 25 MCG/HR Last Admin: 11/28/16 06:58 Dose: Not Given Piperacillin Sod/Tazobactam Sod (Zosyn 2.25gm Ivpb (Pre-Docked)) 50 mls @ 100 mls/hr IVPB Q8H-IV NATHALIA Last Admin: 11/28/16 09:24 Dose: 100 mls/hr Phenylephrine HCl 20,000 mcg/ (Sodium Chloride) 250 mls @ 75 mls/hr IVPB ASDIR NATHALIA; 100 MCG/MIN PRN Reason: Protocol Last Admin: 11/28/16 06:15 Dose: 75 mls/hr Pantoprazole Sodium (Protonix 40mg Ivpb (Pre-Docked)) 100 mls @ 200 mls/hr IVPB DAILY NATHALIA Last Admin: 11/28/16 09:25 Dose: 200 mls/hr Norepinephrine Bitartrate 8, (000 mcg/ Dextrose) 500 mls @ 18.75 mls/hr IV TITR NATHALIA; 5 MCG/MIN PRN Reason: Protocol Last Admin: 11/28/16 06:16 Dose: 112.5 mls/hr Sodium Chloride (Normal Saline -) 1,000 mls @ 100 mls/hr IV ASDIR NATHALIA Last Admin: 11/28/16 10:13 Dose: 100 mls/hr Insulin Aspart (Novolog Vial Sliding Scale -) 1 vial SQ Q6HPO NATHALIA PRN Reason: Protocol Last Admin: 11/28/16 06:12 Dose: Not Given Morphine Sulfate (Morphine Injection -) 2 mg IVPUSH Q3H PRN PRN Reason: PAIN Last Admin: 11/27/16 18:08 Dose: 2 mg Mupirocin (Bactroban Ointment (For Decolonization) -) 1 applic NS BID NATHALIA Stop: 12/01/16 09:59 Last Admin: 11/28/16 10:14 Dose: 1 applic - Objective Vital Signs: Vital Signs Temperature 98.1 F 11/28/16 10:00 Pulse Rate 106 H 11/28/16 10:00 Respiratory Rate 32 H 11/28/16 10:00 Blood Pressure 73/38 11/28/16 10:00 O2 Sat by Pulse Oximetry (%) 94 L 11/28/16 09:30 Labs: CBC, BMP 11/28/16 05:15 11/28/16 05:15 INR, PTT INR 1.36 (0.82-1.09) H 11/28/16 05:15 Problem List - Problems (1) Pneumonia Code(s): J18.9 - PNEUMONIA, UNSPECIFIED ORGANISM (2) Sepsis Code(s): A41.9 - SEPSIS, UNSPECIFIED ORGANISM Qualifiers: Qualified Code(s): A41.9 - Sepsis, unspecified organism (3) Urinary tract infection Code(s): N39.0 - URINARY TRACT INFECTION, SITE NOT SPECIFIED Qualifiers: Qualified Code(s): N39.0 - Urinary tract infection, site not specified (4) Multiple drug resistant organism (MDRO) culture positive Code(s): Z16.24 - RESISTANCE TO MULTIPLE ANTIBIOTICS Assessment/Plan Microbiology 11/27/16 15:00 Urine - Urine Mattson Urine Culture - Final Contaminated: Please Repeat 11/26/16 07:30 Nasopharyngeal Swab Influenza Types A,B Antigen (BEATRIZ) - Final 11/26/16 07:30 Nasopharyngeal Swab - Final 11/26/16 06:45 Urine - Urine Mattson Urine Culture - Final Contaminated: Please Repeat 11/26/16 07:30 Nasopharyngeal Swab Respiratory Virus Panel - Preliminary 11/26/16 05:30 Blood - Peripheral Venous Blood Culture - Preliminary NO GROWTH OBTAINED AFTER 48 HOURS, INCUBATION TO CONTINUE FOR 3 DAYS. 11/26/16 05:30 Blood - Peripheral Venous Blood Culture - Preliminary NO GROWTH OBTAINED AFTER 48 HOURS, INCUBATION TO CONTINUE FOR 3 DAYS. Laboratory Tests 11/28/16 11/28/16 05:15 07:20 WBC 12.9 H Hgb 8.7 L Hct 26.2 L Plt Count 223 D ABG pH 7.24 L* ABG pCO2 at Pt Temp 27.6 L ABG pO2 at Pt Temp 144.0 H D Oxygen Flow Rate 100% Assessment Sepsis syndrome urinary source/ Pneumonia Multiorgan failure Plan Continue current antibiotics Redose vanco 1.25 gr x 1 Sputum c/s Eric KING
[2016-11-28] MEDS ORDERED: CALCIUM CHLORIDE 10% 1 GM/10 ML *VIAL IVPB ONE (10:53)
--- NOTE | 2016-11-28 11:10 | PN ---
Physical Exam: SUBJECTIVE: Patient seen and examined at bedside in ICU. Pt remains intubated, on vent, sedated. OBJECTIVE: Vital Signs Temperature 98.1 F 11/28/16 10:00 Pulse Rate 106 H 11/28/16 10:00 Respiratory Rate 32 H 11/28/16 10:00 Blood Pressure 73/38 11/28/16 10:00 O2 Sat by Pulse Oximetry (%) 94 L 11/28/16 09:30 GENERAL: Sedated, on ventilator HEAD: Normal with no signs of trauma. BG EYES: Pupils not reactive to light. LUNGS: Auscultated anteriorly, mechanically ventilated, rhonchi on L. HEART: Tachycardic ABDOMEN: nontender, distented, hypoactive bowel sounds LOWER EXTREMITIES: Cool to touch feet. R femoral line in place. NEUROLOGICAL: Sedated. No gag reflex. PSYCHIATRIC: Sedated. SKIN: Warm, dry, normal turgor, no rashes or lesions noted. Laboratory Results - last 24 hr 11/27/16 11/28/16 11/28/16 05:50 05:15 05:15 WBC 12.9 H RBC 3.02 L Hgb 8.7 L Hct 26.2 L MCV 86.9 MCHC 33.3 RDW 15.6 Plt Count 223 D MPV 7.8 INR 1.36 H PTT (Actin FS) 36.1 H Puncture Site ABG pH ABG pCO2 at Pt Temp ABG pO2 at Pt Temp ABG HCO3 ABG O2 Sat (Measured) ABG O2 Content ABG Base Excess Linden Test O2 Delivery Device Oxygen Flow Rate Vent Mode Vent Rate Mechanical Rate PEEP Pressure Support Vent Sodium Potassium Chloride Carbon Dioxide Anion Gap BUN Creatinine Creat Clearance w eGFR POC Glucometer [id number] Random Glucose Lactic Acid Calcium Phosphorus Magnesium Total Bilirubin AST ALT Alkaline Phosphatase Total Protein Albumin 11/28/16 11/28/16 11/28/16 05:15 05:15 07:20 WBC RBC Hgb Hct MCV MCHC RDW Plt Count MPV INR PTT (Actin FS) Puncture Site Left radial ABG pH 7.24 L* ABG pCO2 at Pt Temp 27.6 L ABG pO2 at Pt Temp 144.0 H D ABG HCO3 11.5 L* ABG O2 Sat (Measured) 98.6 ABG O2 Content 12.4 L ABG Base Excess -14.3 L* Linden Test Positive O2 Delivery Device Vent Oxygen Flow Rate 100% Vent Mode A/c Vent Rate 16 Mechanical Rate Yes PEEP 5.0 Pressure Support Vent 425 Sodium 125 L Potassium 5.1 D Chloride 93 L Carbon Dioxide 14 L Anion Gap 18 H BUN 61 H Creatinine 3.9 H Creat Clearance w eGFR 14.70 POC Glucometer Random Glucose 55 L D Lactic Acid 4.997 H* Calcium 6.0 L* Phosphorus 4.1 D Magnesium 1.2 L Total Bilirubin 0.4 AST 84 H D ALT 27 D Alkaline Phosphatase 57 Total Protein 4.1 L Albumin 1.6 L Microbiology 11/27/16 15:00 Urine - Urine Mattson Urine Culture - Final Contaminated: Please Repeat 11/26/16 05:30 Blood - Peripheral Venous Blood Culture - Preliminary NO GROWTH OBTAINED AFTER 48 HOURS, INCUBATION TO CONTINUE FOR 3 DAYS. 11/26/16 05:30 Blood - Peripheral Venous Blood Culture - Preliminary NO GROWTH OBTAINED AFTER 48 HOURS, INCUBATION TO CONTINUE FOR 3 DAYS. 11/26/16 06:45 Urine - Urine Mattson Urine Culture - Final Contaminated: Please Repeat 11/26/16 07:30 Nasopharyngeal Swab Respiratory Virus Panel - Preliminary 11/26/16 07:30 Nasopharyngeal Swab Influenza Types A,B Antigen (BEATRIZ) - Final 11/26/16 07:30 Nasopharyngeal Swab - Final Active Medications Generic Name Dose Route Start Last Admin Trade Name Doeq PRN Reason Stop Dose Admin Acetaminophen 1,000 mg 11/26/16 07:27 Ofirmev Injection - IVPB ONCE PRN FEVER Chlorhexidine Gluconate 1 applic 11/26/16 22:00 11/27/16 22:30 Hibiclens For Decolonization - TP 1 applic HS NATHALIA Administration Fentanyl 500 mcg/ Dextrose 100 mls @ 5 mls/hr 11/26/16 07:00 11/28/16 06:58 IJ Not Given TITR NATHALIA 25 MCG/HR Piperacillin Sod/Tazobactam Sod 50 mls @ 100 mls/hr 11/26/16 18:00 11/28/16 09: 24 Zosyn 2.25gm Ivpb (Pre-Docked) IVPB 100 mls/hr Q8H-IV NATHALIA Administration Phenylephrine HCl 20,000 mcg/ 250 mls @ 75 mls/hr 11/26/16 20:30 11/28/16 06:15 Sodium Chloride IVPB 75 mls/hr ASDIR NATHALIA Administration Protocol 100 MCG/MIN Pantoprazole Sodium 100 mls @ 200 mls/hr 11/27/16 11:30 11/28/16 09:25 Protonix 40mg Ivpb (Pre-Docked) IVPB 200 mls/hr DAILY NATHALIA Administration Norepinephrine Bitartrate 8, 500 mls @ 18.75 mls/hr 11/27/16 21:11 11/28/16 06: 16 000 mcg/ Dextrose IV 112.5 mls/hr TITR NATHALIA Administration Protocol 5 MCG/MIN Vancomycin HCl 1,250 mg/ 250 mls @ 250 mls/hr 11/28/16 10:49 Dextrose IVPB 11/28/16 11:48 ONCE ONE Dextrose/Sodium Chloride 1,000 mls @ 100 mls/hr 11/28/16 11:00 D5-Ns - IV ASDIR NATHALIA Insulin Aspart 1 vial 11/26/16 18:15 11/28/16 06:12 Novolog Vial Sliding Scale - SQ Not Given Q6HPO [facility] Protocol Morphine Sulfate 2 mg 11/27/16 16:31 11/27/16 18:08 Morphine Injection - IVPUSH 2 mg Q3H PRN Administration PAIN Mupirocin 1 applic 11/26/16 10:00 11/28/16 10:14 Bactroban Ointment (For Decolonization) - NS 12/01/16 09:59 1 applic BID NATHALIA Administration ASSESSMENT/PLAN: 86 y/o M from [facility] w/PMH of DM, GI hemorrhage, ckd, dementia, anemia, suprapubic catheter presented to the ER due to being found unresponsive with O2 sat of 71%. -Severe sepsis secondary to UTI vs PNA -WBC 12.9, tachycardic -c/w vanco/zosyn as per ID; f/u random vanco -on levophed; phenylephrine; fluids changed to D5NS@ 100ml/hr -UA: 3+ LE, 856 WBC; hx of proteus and ESBL in urine in past -Lactic acid: 5; trending down, continue to monitor -CXR shows increasing congestion -BCx(-) x 48hrs -UCx contaminated -CXR in AM; f/u Resp Virus Panel -Rapid Flu negative -ID on board -Elevated Troponin -trops elevated most likely secondary to demand ischemia -Echo: LV nl size, LVSF nl, no regional wall abnormalities, mild TR, RVSP elevated at 30-40 mmHg, mild aortic sclerosis, mild aortic root dilatation, no pericardial effusion. -Acute Respiratory failure secondary to PNA / sepsis -CXR shows worsening congestive changes -on ventilator. sedated on midazolam and fentanyl -recommend decreasing FiO2 according to ABG pO2 at 144. -c/w vanco/zosyn -SpCx -ABG in AM, CXR in AM -sedation vacations in AM -Anemia secondary to Upper GI bleed -coffee ground aspirate via NGT -Recommend starting pt on protonix drip -Abd XR: Distended bowel. Possible small bowel or partial small obstruction. Abd XR ordered for today. -Hgb: 8.7 currently, no baseline available in charts -received 1 unit PRBC so far. -GI on board, recommends CT abd w/contrast if pt becomes stable -TANESHA on CKD secondary to sepsis -BUN/Cr: 61/3.9, stable -No baseline Cr in charts -monitor BUN/Cr -DM -Monitor BGMs -hypoglycemic this AM, fluids changed to D5-NS@100ml/hr -HTN -hold anti-hypertensives (metoprolol tartrate 25 mg bid) in light of septic shock -FEN -fluids changed to D5-NS @ 100 ml/hr; -hyponatremia, monitor lytes, monitor tele -NPO -Dispo: -Monitor in ICU. -Code status currently full code, ethics, palliative on board. Problem List - Problems (1) GI bleed Code(s): K92.2 - GASTROINTESTINAL HEMORRHAGE, UNSPECIFIED (2) Multiple drug resistant organism (MDRO) culture positive Code(s): Z16.24 - RESISTANCE TO MULTIPLE ANTIBIOTICS (3) Pneumonia Code(s): J18.9 - PNEUMONIA, UNSPECIFIED ORGANISM (4) Sepsis Code(s): A41.9 - SEPSIS, UNSPECIFIED ORGANISM Qualifiers: Qualified Code(s): A41.9 - Sepsis, unspecified organism (5) Urinary tract infection Code(s): N39.0 - URINARY TRACT INFECTION, SITE NOT SPECIFIED Qualifiers: Qualified Code(s): N39.0 - Urinary tract infection, site not specified Visit type - Emergency Visit Emergency Visit: Yes ED Registration Date: 11/26/16 Care time: The patient presented to the Emergency Department on the above date and was hospitalized for further evaluation of their emergent condition. - New Patient This patient is new to me today: No - Critical Care Critical Care patient: Yes Total Critical Care Time (in minutes): 35 Critical Care Statement: The care of this patient involved high complexity decision making to prevent further life threatening deterioration of the patient 's condition and/or to evalute & treat vital organ system(s) failure or risk of failure.
[2016-11-28] MEDS ORDERED: CALCIUM CHLORIDE 1 GM/10 ML *DISP.SYRIN ONE (11:27)
[2016-11-28] MEDS: DEXTROSE 5%-NORMAL SALINE 1,000 ML IV SCH ×2 (11:35→23:05)
[2016-11-28] MEDS ORDERED: VANCOMYCIN 1,250 MG in DEXTROSE 5%-WATER - 250 ML IVPB ONE (12:30)
--- NOTE | 2016-11-28 12:39 | PN ---
Teaching Attending Note Name of Resident: Alber Rivera ATTENDING PHYSICIAN STATEMENT I saw and evaluated the patient. I reviewed the resident's note and discussed the case with the resident. I agree with the resident's findings and plan as documented. SUBJECTIVE: Pt seen and examined in the ICU. Remains intubated, sedated on levophed and phenylephrine gtts. No urine output but with increased GT drainage. No fevers recorded. OBJECTIVE: Last Vital Signs Temp Pulse Resp BP Pulse Ox 98.1 F 102 H 32 H 77/59 94 L 11/28/16 10:00 11/28/16 12:00 11/28/16 12:00 11/28/16 12:00 11/28/16 09:30 Intake & Output 11/25/16 11/26/16 11/27/16 11/28/16 23:59 23:59 23:59 23:59 Intake Total 24453.5 9212.5 2119 Output Total 2495 1190 380 Balance 8427.5 8022.5 1739 Weight 165 lb 181 lb 10.574 oz 194 lb 14.218 oz Gen: intubated, sedated, PERRL, tachypneic Heart: tachycardic, regular Lung: distant breath sounds Abd: distended, tympanic Ext: + edema CBC, BMP 11/28/16 05:15 11/28/16 05:15 Active Medications Acetaminophen (Ofirmev Injection -) 1,000 mg IVPB ONCE PRN PRN Reason: FEVER Chlorhexidine Gluconate (Hibiclens For Decolonization -) 1 applic TP HS NATHALIA Last Admin: 11/27/16 22:30 Dose: 1 applic Fentanyl 500 mcg/ Dextrose 100 mls @ 5 mls/hr IJ TITR NATHALIA PRN Reason: 25 MCG/HR Last Admin: 11/28/16 06:58 Dose: Not Given Piperacillin Sod/Tazobactam Sod (Zosyn 2.25gm Ivpb (Pre-Docked)) 50 mls @ 100 mls/hr IVPB Q8H-IV NATHALIA Last Admin: 11/28/16 09:24 Dose: 100 mls/hr Phenylephrine HCl 20,000 mcg/ (Sodium Chloride) 250 mls @ 75 mls/hr IVPB ASDIR NATHALIA; 100 MCG/MIN PRN Reason: Protocol Last Admin: 11/28/16 06:15 Dose: 75 mls/hr Pantoprazole Sodium (Protonix 40mg Ivpb (Pre-Docked)) 100 mls @ 200 mls/hr IVPB DAILY NATHALIA Last Admin: 11/28/16 09:25 Dose: 200 mls/hr Norepinephrine Bitartrate 8, (000 mcg/ Dextrose) 500 mls @ 18.75 mls/hr IV TITR NATHALIA; 5 MCG/MIN PRN Reason: Protocol Last Admin: 11/28/16 06:16 Dose: 112.5 mls/hr Vancomycin HCl 1,250 mg/ (Dextrose) 250 mls @ 166.667 mls/hr IVPB ONCE ONE Stop: 11/28/16 13:59 Dextrose/Sodium Chloride (D5-Ns -) 1,000 mls @ 100 mls/hr IV ASDIR NATHALIA Last Admin: 11/28/16 11:35 Dose: 100 mls/hr Insulin Aspart (Novolog Vial Sliding Scale -) 1 vial SQ Q6HPO NATHALIA PRN Reason: Protocol Last Admin: 11/28/16 12:23 Dose: Not Given Morphine Sulfate (Morphine Injection -) 2 mg IVPUSH Q3H PRN PRN Reason: PAIN Last Admin: 11/27/16 18:08 Dose: 2 mg Mupirocin (Bactroban Ointment (For Decolonization) -) 1 applic NS BID NATHALIA Stop: 12/01/16 09:59 Last Admin: 11/28/16 10:14 Dose: 1 applic ASSESSMENT AND PLAN: Acute Hypoxic Respiratory Failure UTI r/o Pneumonia Septic Shock Multiorgan Dysfunction Acute Kidney Injury Lactic Acidosis Coagulopathy r/o Small Bowel Obstruction r/o Ischemic Bowel Suprapubic Catheter Hyponatremia Dementia - agree with above consultants, ethics/palliative input appreciated as pt in multiorgan failure with anuric renal failure on multiple pressors and possible bowel ischemia, pt unlikely to survive this event and further aggressive care would not likely alter his poor outcome - continue antibiotics - IVF - monitor urine output, creatinine - trend lactate - change IVPB to NS - continue OGT to ILWS - continue discussions regarding goals of care, recommend palliative/comfort measures - poor overall prognosis
--- NOTE | 2016-11-28 14:00 | PN ---
Progress Note, Physician History of Present Illness: patient seen and examined at bedside in the ICU remains intubated sedated on pressors with minimal to no urine output - Current Medication List Current Medications: Active Medications Acetaminophen (Ofirmev Injection -) 1,000 mg IVPB ONCE PRN PRN Reason: FEVER Chlorhexidine Gluconate (Hibiclens For Decolonization -) 1 applic TP HS ANTHALIA Last Admin: 11/27/16 22:30 Dose: 1 applic Fentanyl 500 mcg/ Dextrose 100 mls @ 5 mls/hr IJ TITR NATHALIA PRN Reason: 25 MCG/HR Last Admin: 11/28/16 06:58 Dose: Not Given Piperacillin Sod/Tazobactam Sod (Zosyn 2.25gm Ivpb (Pre-Docked)) 50 mls @ 100 mls/hr IVPB Q8H-IV NATHALIA Last Admin: 11/28/16 09:24 Dose: 100 mls/hr Phenylephrine HCl 20,000 mcg/ (Sodium Chloride) 250 mls @ 75 mls/hr IVPB ASDIR NATHALIA; 100 MCG/MIN PRN Reason: Protocol Last Admin: 11/28/16 06:15 Dose: 75 mls/hr Pantoprazole Sodium (Protonix 40mg Ivpb (Pre-Docked)) 100 mls @ 200 mls/hr IVPB DAILY NATHALIA Last Admin: 11/28/16 09:25 Dose: 200 mls/hr Norepinephrine Bitartrate 8, (000 mcg/ Dextrose) 500 mls @ 18.75 mls/hr IV TITR NATHALIA; 5 MCG/MIN PRN Reason: Protocol Last Admin: 11/28/16 06:16 Dose: 112.5 mls/hr Dextrose/Sodium Chloride (D5-Ns -) 1,000 mls @ 100 mls/hr IV ASDIR NATHALIA Last Admin: 11/28/16 11:35 Dose: 100 mls/hr Insulin Aspart (Novolog Vial Sliding Scale -) 1 vial SQ Q6HPO NATHALIA PRN Reason: Protocol Last Admin: 11/28/16 12:23 Dose: Not Given Morphine Sulfate (Morphine Injection -) 2 mg IVPUSH Q3H PRN PRN Reason: PAIN Last Admin: 11/27/16 18:08 Dose: 2 mg Mupirocin (Bactroban Ointment (For Decolonization) -) 1 applic NS BID NATHALIA Stop: 12/01/16 09:59 Last Admin: 11/28/16 10:14 Dose: 1 applic - Objective Vital Signs: Vital Signs Temperature 98.1 F 11/28/16 10:00 Pulse Rate 104 H 11/28/16 12:47 Respiratory Rate 36 H 11/28/16 12:47 Blood Pressure 88/46 11/28/16 12:47 O2 Sat by Pulse Oximetry (%) 94 L 11/28/16 09:30 Constitutional: Yes: Other (intubated sedated overbreathing the ventilator) Eyes: Yes: Conjunctiva Clear HENT: Yes: Atraumatic Neck: Yes: Trachea Midline Cardiovascular: Yes: Tachycardia Respiratory: Yes: Diminished, Intubated, Mechanically Ventilated, Rhonchi Gastrointestinal: Yes: Abdomen, Obese, more Distention today , Palpable Mass ( likely an umbilical hernia) Genitourinary: Yes: Other (suprapubic cathter in place) Extremities: Yes: Cool Edema: No Neurological: Yes: Other (sedated) Labs: CBC, BMP 11/28/16 05:15 11/28/16 05:15 INR, PTT INR 1.36 (0.82-1.09) H 11/28/16 05:15 Assessment/Plan 86M with multiple medical problems presents to the ED Pt is an 86yr old man with PMHx including DM, dementia, PEG tube (now reversed) , suprapubic bladder catheter with recurrent UTIs, GI bleed and anemia. Now in the ICU for management of septic shock with associated respiratory failure secondary to HCAP, and metabolic acidosis in setting of TANESHA. Septic shock secondary to pneumonia vs UTI. 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 likely source of sepsis is health care acquired pneumonia. Pneumonia also likely cause for patient's acute hypoxic respiratory failure. hx of proteus and ESBL in urine , both sensitive to Zosyn. Leuokocystosis multiorgan failure Lactic acidosis could be due to ischemic bowel possible anoxic brain injury continue ventilatory support Wean FiO2 as tolerated continue pressors for BP support f/u cultures-contaminated UCx x 2 ID consult appreciated continue zosyn trend lactic acid. patient has lactic acidosis/Metabolic acidosis-not improving continue fentanyl gtt for pain control-titrate up for comfort hold off on steroids for now continue levophed and neosynephrine as needed no more labs or imaging Cardiovascular hold antihypertensives at this time patient is hypotensive and in septic shock fluid resuscitation pressors for BP support GI: GI bleed, SBO vs partial SBO possible ischemic bowel in the setting of hypotension from septic shock transfuse PRN trend CBC Hb trending down GI consult appreciated protonix surgery consult noted and appreciated no intervention at this time Acute on chronic renal failure treat underlying sepsis Volume resuscitate Strict I/Os Replete electrolytes prn Monitor BUN/Cr Renally dose medications DM: BGM q6h ISS PPx: SCDs protonix PT consult when stable and can participate FEN: D5NS @ 100ml/hr with boluses PRN hyponatremia will need to have fluids changed to NS NPO for now-NGT output increased Grave prognosis. very poor chance for any meaningful recovery this was discussed with daughter Seen by Dr. Buckner from palliative/ethics committee. Agreed any resuscitation efforts would be futile. patient should be allowed to pass away with dignity and suffering. PAtient to become DNR without any further lab draws. no further imaging. will discuss comfort measures as well. no labs or imaging at this time
--- NOTE | 2016-11-28 16:33 | PN ---
GI Progress Note Subjective: No acute events Remains intubated on pressors NGT aspirate is bilious - Objective Vital Signs: Vital Signs Temperature 98.1 F 11/28/16 10:00 Pulse Rate 104 H 11/28/16 12:47 Respiratory Rate 29 H 11/28/16 15:43 Blood Pressure 88/46 11/28/16 12:47 O2 Sat by Pulse Oximetry (%) 94 L 11/28/16 09:30 Constitutional: Calm Eyes: No: Sclera Icterus Cardiovascular: Yes: Tachycardia Respiratory: Yes: Diminished (at bases, poor insp. effort) Gastrointestinal Inspection: Yes: Other (protuberant abdomen) ...Auscultate: Yes: No Bowel Sounds ...Palpate: No: Tenderness (no grimacing upon palpation) ...Percussion: Yes: Tympanitic (mild) Labs: CBC, BMP 11/28/16 05:15 11/28/16 05:15 INR, PTT INR 1.36 (0.82-1.09) H 11/28/16 05:15 Hepatic Panel Total Bilirubin 0.4 mg/dL (0.2-1.0) 11/28/16 05:15 AST 84 U/L (15-37) H D 11/28/16 05:15 ALT 27 U/L (12-78) D 11/28/16 05:15 Alkaline Phosphatase 57 U/L (45-117) 11/28/16 05:15 Albumin 1.6 g/dl (3.4-5.0) L 11/28/16 05:15 Problem List - Problems (1) Adynamic ileus Assessment/Plan: Non-bloody NG aspirate at this point. This was not a primary GI bleed event Check AXR in AM Supportive measures. If improvement in NGT output and in appearance of dilated small bowel loops, would take NGT off suction and monitor Poor prognosis Code(s): K56.0 - PARALYTIC ILEUS
[2016-11-28] MEDS ORDERED: LORAZEPAM CARPU-JECT 2 MG/ML DISP.SYRIN IVPUSH PRN (17:07)
[2016-11-28] MEDS: CHLORHEXIDINE GLUCONATE 4% CLEANSER FOR DECOLONIZATION TP SCH (22:45)
[2016-11-29] MEDS: INSULIN SLIDING SCALE (NOVOLOG) 1 VIAL SQ SCH ×5 (00:30→19:42)
[2016-11-29] MEDS: PIPERACILLIN/TAZOB 2.25 GM 50 ML IVPB SCH (01:28)
[2016-11-29] MEDS ORDERED: NOREPINEPHRINE BITARTRATE 4 MG/4 ML ML IV ONE ×4 (02:00→22:12)
[2016-11-29] MEDS ORDERED: PHENYLEPHRINE HCL 10 MG/1 ML SINGLE DOSE VIAL ONE ×6 (02:00→22:18)
[2016-11-29] MEDS: NOREPINEPHRINE BITARTRATE 8,000 MCG in DEXTROSE 5%-WATER - 492 ML IV SCH ×5 (02:12→22:06)
[2016-11-29] MEDS: PHENYLEPHRINE HCL 20,000 MCG in SODIUM CHLORIDE 248 ML IVPB SCH ×5 (02:12→21:59)
[2016-11-29 06:00] LABS: MCH 28.8 pg (25.7-33.7); MCHC 33.1 g/dl (32.0-35.9); MEAN CELL VOLUME 86.9 fl (80-96); MEAN PLT VOLUME 8.1 fl (7.5-11.1); PLATELET COUNT 177 K/MM3 (134-434); RDW 15.2 % (11.9-15.9); WHITE BLOOD COUNT 19.5 K/mm3 (4.0-10.0)
[2016-11-29] MEDS: FENTANYL INJECTION 500 MCG in DEXTROSE 5%-WATER - 90 ML IJ SCH (06:24)
[2016-11-29 06:45] LABS: ALBUMIN 1.4 g/dl (3.4-5.0); MAGNESIUM 1.1 mg/dL (1.8-2.4); PHOSPHOROUS 5.5 mg/dL (2.5-4.9)
[2016-11-29 06:48] LABS: BILIRUBIN,TOTAL 0.5 mg/dL (0.2-1.0); CREATININE 4.2 mg/dL (0.7-1.3); TOT PROT 3.8 g/dl (6.4-8.2)
[2016-11-29 06:52] LABS: CALCIUM 5.6 mg/dL (8.5-10.1)
[2016-11-29 07:17] LABS: ALLENS TEST POSITIVE; ART PUNCT SITE LEFT RADIAL; ARTERIAL BLD GAS O2 SATURATION 98.7 % (90-98.9); ARTERIAL BLOOD GAS BASE EXCESS -16.7 meq/l (-2-2); ARTERIAL BLOOD GAS HCO3 11.3 meq/L (22-26); PT. ON O2? YES
[2016-11-29 07:18] LABS: LPM/O2% 90%; MECH. VENT. ESPRIT; TYPE OF O2 MEC.VENT; VENT RATE 16; VT/PRESS 425
[2016-11-29 07:19] LABS: ARTERIAL BLOOD GAS pH 7.12 (7.35-7.45)
--- NOTE | 2016-11-29 07:46 | PN ---
Progress Note, Physician Chief Complaint: ID Patient obtunded on the ventilator support and pressors 80%O2 FIO2 Pip Tazobactam - Current Medication List Current Medications: Active Medications Acetaminophen (Ofirmev Injection -) 1,000 mg IVPB ONCE PRN PRN Reason: FEVER Chlorhexidine Gluconate (Hibiclens For Decolonization -) 1 applic TP HS NATHALIA Last Admin: 11/28/16 22:45 Dose: 1 applic Fentanyl 500 mcg/ Dextrose 100 mls @ 5 mls/hr IJ TITR NATHALIA PRN Reason: 25 MCG/HR Last Admin: 11/29/16 06:24 Dose: 9 mls/hr Piperacillin Sod/Tazobactam Sod (Zosyn 2.25gm Ivpb (Pre-Docked)) 50 mls @ 100 mls/hr IVPB Q8H-IV NATHALIA Last Admin: 11/29/16 01:28 Dose: 100 mls/hr Phenylephrine HCl 20,000 mcg/ (Sodium Chloride) 250 mls @ 75 mls/hr IVPB ASDIR NATHALIA; 100 MCG/MIN PRN Reason: Protocol Last Admin: 11/29/16 05:45 Dose: 75 mls/hr Pantoprazole Sodium (Protonix 40mg Ivpb (Pre-Docked)) 100 mls @ 200 mls/hr IVPB DAILY NATHALIA Last Admin: 11/28/16 09:25 Dose: 200 mls/hr Norepinephrine Bitartrate 8, (000 mcg/ Dextrose) 500 mls @ 18.75 mls/hr IV TITR NATHALIA; 5 MCG/MIN PRN Reason: Protocol Last Admin: 11/29/16 05:46 Dose: 112.5 mls/hr Dextrose/Sodium Chloride (D5-Ns -) 1,000 mls @ 100 mls/hr IV ASDIR NATHALIA Last Admin: 11/28/16 23:05 Dose: 100 mls/hr Insulin Aspart (Novolog Vial Sliding Scale -) 1 vial SQ Q6HPO NATHALIA PRN Reason: Protocol Last Admin: 11/29/16 06:22 Dose: Not Given Lorazepam (Ativan Injection -) 1 mg IVPUSH Q6H PRN PRN Reason: AGITATION Morphine Sulfate (Morphine Injection -) 2 mg IVPUSH Q3H PRN PRN Reason: PAIN Last Admin: 11/27/16 18:08 Dose: 2 mg Mupirocin (Bactroban Ointment (For Decolonization) -) 1 applic NS BID NATHALIA Stop: 12/01/16 09:59 Last Admin: 11/28/16 22:45 Dose: 1 applic - Objective Vital Signs: Vital Signs Temperature 98.4 F 11/29/16 06:00 Pulse Rate 100 H 11/29/16 06:00 Respiratory Rate 23 11/29/16 07:09 Blood Pressure 83/53 11/29/16 06:00 O2 Sat by Pulse Oximetry (%) 100 11/29/16 05:30 HENT: Yes: Other (Et tube) Cardiovascular: Yes: Regular Rate and Rhythm, S1, S2 Respiratory: Yes: Rhonchi Gastrointestinal: Yes: Soft, Distention. No: Tenderness, Tenderness, Rebound Extremities: Yes: Cool Labs: CBC, BMP 11/29/16 05:15 11/29/16 05:15 INR, PTT INR 1.36 (0.82-1.09) H 11/28/16 05:15 Problem List - Problems (1) Pneumonia Code(s): J18.9 - PNEUMONIA, UNSPECIFIED ORGANISM (2) Sepsis Code(s): A41.9 - SEPSIS, UNSPECIFIED ORGANISM Qualifiers: Sepsis type: sepsis due to unspecified organism Qualified Code(s): A41.9 - Sepsis, unspecified organism (3) Urinary tract infection Code(s): N39.0 - URINARY TRACT INFECTION, SITE NOT SPECIFIED Qualifiers: Urinary tract infection type: site unspecified Hematuria presence: without hematuria Qualified Code(s): N39.0 - Urinary tract infection, site not specified (4) Multiple drug resistant organism (MDRO) culture positive Code(s): Z16.24 - RESISTANCE TO MULTIPLE ANTIBIOTICS Assessment/Plan Microbiology 11/27/16 15:00 Urine - Urine Mattson Urine Culture - Final Contaminated: Please Repeat 11/26/16 06:45 Urine - Urine Mattson Urine Culture - Final Contaminated: Please Repeat Laboratory Tests 11/27/16 11/28/16 11/28/16 05:20 05:15 05:15 WBC Hgb Hct Plt Count INR 1.36 H ABG pH ABG pCO2 at Pt Temp ABG pO2 at Pt Temp Oxygen Flow Rate Creat Clearance w eGFR Lactic Acid 4.997 H* Random Vancomycin 8.869 11/29/16 11/29/16 11/29/16 05:15 05:15 07:00 WBC 19.5 H D Hgb 8.5 L Hct 25.5 L Plt Count 177 D INR ABG pH 7.12 L* ABG pCO2 at Pt Temp 36.6 D ABG pO2 at Pt Temp 161.0 H* Oxygen Flow Rate 90% Creat Clearance w eGFR 13.49 Lactic Acid Random Vancomycin Assessment Sepsis syndrome Urinary tract source of infection High likelihood resistant organism given suprapubic Pneumonia Multiorgan failure Metabolic acidosis Plan In a desperation effort to cover possible resistant organisms will change therapy to carbepenem and dose of gent adjust for renal failure Eric KING
[2016-11-29] MEDS ORDERED: GENTAMICIN INJECTION 100 MG in SODIUM CHLORIDE 100 ML IVPB ONE (09:00)
--- NOTE | 2016-11-29 09:27 | PN ---
Progress Note (short form) - Note Progress Note: Patient seen and examined in the ICU. Events noted. Seen by Palliative care. My understanding is that there are to be no further labs or diagnostics. Remains intubated, sedated on levophed and phenylephrine drips. No improvement in overall condition. OBJECTIVE: Intake & Output 11/26/16 11/27/16 11/28/16 11/29/16 23:59 23:59 23:59 23:59 Intake Total 77544.5 9212.5 7402 1948 Output Total 2495 1190 990 200 Balance 8427.5 8022.5 6412 1748 Weight 165 lb 181 lb 10.574 oz 194 lb 14.218 oz 209 lb 7.026 oz Last Vital Signs Temp Pulse Resp BP Pulse Ox 98.4 F 92 H 23 74/41 100 11/29/16 06:00 11/29/16 08:00 11/29/16 08:00 11/29/16 08:00 11/29/16 05:30 Active Medications Acetaminophen (Ofirmev Injection -) 1,000 mg IVPB ONCE PRN PRN Reason: FEVER Chlorhexidine Gluconate (Hibiclens For Decolonization -) 1 applic TP HS NATHALIA Last Admin: 11/28/16 22:45 Dose: 1 applic Fentanyl 500 mcg/ Dextrose 100 mls @ 5 mls/hr IJ TITR NATHALIA PRN Reason: 25 MCG/HR Last Admin: 11/29/16 06:24 Dose: 9 mls/hr Phenylephrine HCl 20,000 mcg/ (Sodium Chloride) 250 mls @ 75 mls/hr IVPB ASDIR NATHALIA; 100 MCG/MIN PRN Reason: Protocol Last Admin: 11/29/16 05:45 Dose: 75 mls/hr Pantoprazole Sodium (Protonix 40mg Ivpb (Pre-Docked)) 100 mls @ 200 mls/hr IVPB DAILY NATHALIA Last Admin: 11/28/16 09:25 Dose: 200 mls/hr Norepinephrine Bitartrate 8, (000 mcg/ Dextrose) 500 mls @ 18.75 mls/hr IV TITR NATHALIA; 5 MCG/MIN PRN Reason: Protocol Last Admin: 11/29/16 05:46 Dose: 112.5 mls/hr Dextrose/Sodium Chloride (D5-Ns -) 1,000 mls @ 100 mls/hr IV ASDIR NATHALIA Last Admin: 11/28/16 23:05 Dose: 100 mls/hr Doripenem 250 mg/ Dextrose 100 mls @ 100 mls/hr IVPB BID [facility] Gentamicin Sulfate 100 mg/ (Sodium Chloride) 102.5 mls @ 102.5 mls/hr IVPB ONCE ONE Stop: 11/29/16 09:59 Insulin Aspart (Novolog Vial Sliding Scale -) 1 vial SQ Q6HPO NATHALIA PRN Reason: Protocol Last Admin: 11/29/16 06:22 Dose: Not Given Lorazepam (Ativan Injection -) 1 mg IVPUSH Q6H PRN PRN Reason: AGITATION Morphine Sulfate (Morphine Injection -) 2 mg IVPUSH Q3H PRN PRN Reason: PAIN Last Admin: 11/27/16 18:08 Dose: 2 mg Mupirocin (Bactroban Ointment (For Decolonization) -) 1 applic NS BID [facility] Stop: 12/01/16 09:59 Last Admin: 11/28/16 22:45 Dose: 1 applic Gen: intubated, poorly responsive Heart: tachycardic, regular Lung: scattered rhonchi Abd: distended, tympanic, hypoactive BS Ext: + edema Laboratory Results - last 24 hr 11/26/16 11/29/16 11/29/16 05:30 05:15 05:15 WBC 19.5 H D RBC 2.94 L Hgb 8.5 L Hct 25.5 L MCV 86.9 MCHC 33.1 RDW 15.2 Plt Count 177 D MPV 8.1 Neutrophils % 82.0 Lymphocytes % 6.0 L D Band Neutrophils 12.0 H D Puncture Site ABG pH ABG pCO2 at Pt Temp ABG pO2 at Pt Temp ABG HCO3 ABG O2 Sat (Measured) ABG O2 Content ABG Base Excess Linden Test O2 Delivery Device Oxygen Flow Rate Vent Mode Vent Rate Mechanical Rate PEEP Pressure Support Vent Sodium 122 L* Potassium 5.3 H Chloride 91 L Carbon Dioxide 14 L Anion Gap 17 H BUN 61 H Creatinine 4.2 H Creat Clearance w eGFR 13.49 Random Glucose 79 D Calcium 5.6 L* Phosphorus 5.5 H D Magnesium 1.1 L Total Bilirubin 0.5 D AST 75 H ALT 31 Alkaline Phosphatase 75 D Total Protein 3.8 L Albumin 1.4 L Blood Type O POSITIVE Antibody Screen Negative Crossmatch See Detail 11/29/16 07:00 WBC RBC Hgb Hct MCV MCHC RDW Plt Count MPV Neutrophils % Lymphocytes % Band Neutrophils Puncture Site Left radial ABG pH 7.12 L* ABG pCO2 at Pt Temp 36.6 D ABG pO2 at Pt Temp 161.0 H* ABG HCO3 11.3 L* ABG O2 Sat (Measured) 98.7 ABG O2 Content 11.5 L ABG Base Excess -16.7 L* Linden Test Positive O2 Delivery Device Mec.vent Oxygen Flow Rate 90% Vent Mode A/c Vent Rate 16 Mechanical Rate Esprit PEEP 5.0 Pressure Support Vent 425 Sodium Potassium Chloride Carbon Dioxide Anion Gap BUN Creatinine Creat Clearance w eGFR Random Glucose Calcium Phosphorus Magnesium Total Bilirubin AST ALT Alkaline Phosphatase Total Protein Albumin Blood Type Antibody Screen Crossmatch ASSESSMENT AND PLAN: Acute Hypoxic Respiratory Failure UTI Suspected Pneumonia Septic Shock Multiorgan Dysfunction Acute Kidney Injury Lactic Acidosis Coagulopathy r/o Small Bowel Obstruction r/o Ischemic Bowel Suprapubic Catheter Hyponatremia Dementia - I agree with the consultants and ethics/palliative input. Patient has progressive multiorgan failure with no indication of recovery despite aggressive care. Further aggressive medical care would be futile and would not alter his grave outcome. For now: - continue antibiotics - IVF - continue OGT to ILWS - continue discussions regarding goals of care, recommend palliative/comfort measures -> Withdrawal of care and comfort care would be appropriate in this setting Dr Garnett CCTime 35"
[2016-11-29] MEDS ORDERED: PT OWN MED DRAWER 7, Y5N ONE ×2 (10:27→20:36)
[2016-11-29] MEDS: MUPIROCIN 2% TOPICAL OINTMENT FOR DECOLONIZATION NS SCH ×2 (10:32→22:34)
[2016-11-29] MEDS: DEXTROSE 5%-NORMAL SALINE 1,000 ML IV SCH (10:33)
--- NOTE | 2016-11-29 10:46 | PN ---
Teaching Attending Note Name of Resident: Dale Chowdhury ATTENDING PHYSICIAN STATEMENT I saw and evaluated the patient. I reviewed the resident's note and discussed the case with the resident. I agree with the resident's findings and plan as documented. SUBJECTIVE:intubated OBJECTIVE: Last Vital Signs Temp Pulse Resp BP Pulse Ox 98.4 F 97 H 20 78/47 98 11/29/16 06:00 11/29/16 10:24 11/29/16 10:24 11/29/16 10:00 11/29/16 10:24 Intake & Output 11/26/16 11/27/16 11/28/16 11/29/16 23:59 23:59 23:59 23:59 Intake Total 48997.5 9212.5 7402 1948 Output Total 2495 1190 990 200 Balance 8427.5 8022.5 6412 1748 Weight 165 lb 181 lb 10.574 oz 194 lb 14.218 oz 209 lb 7.026 oz General intubated, no gag reflex or corneal reflex CV S1 S2 + Lungs course breath sounds diffusely Abdomen fim distended, no BS, tympanic Extremities trace pitting edema ASSESSMENT AND PLAN: 86yr old man with PMHx including DM, dementia, PEG tube (now reversed), suprapubic bladder catheter with recurrent UTIs, GI bleed and anemia presented to the ER and was admitted for further evaluation of their emergent condition 1 Septic shock with multiorgan dysfunction- due to UTI and possible aspiration PNA. remains on 2 pressors, with poo titrate to maintain MAP >60. continues to have lactic acidosis. cont IVF, vanco by level/zosyn day 4. contact precautions 2. Poor overall prognosis. Guardian in discussion with palliative care team. requesting compassionate wean which would be appropriate at this time due to grave prognosis and meaningful recovery. awaiting final decision. will hold labs and imaging at this time. The care of this patient involved high complexity decision making to prevent further life threatening deterioration of the patient's condition and/or to evaluate & treat vital organ system(s) failure or risk of failure. critical care time 35 minutes
--- NOTE | 2016-11-29 11:14 | PN ---
Physical Exam: SUBJECTIVE: Patient seen and examined at bedside in ICU. Pt is intubated, on vent, sedated. OBJECTIVE: Vital Signs Temperature 98.4 F 11/29/16 06:00 Pulse Rate 97 H 11/29/16 10:24 Respiratory Rate 20 11/29/16 10:24 Blood Pressure 78/47 11/29/16 10:00 O2 Sat by Pulse Oximetry (%) 98 11/29/16 10:24 GENERAL: Sedated, on ventilator HEAD: Normal with no signs of trauma. BG EYES: Pupils not reactive to light. LUNGS: Auscultated anteriorly, mechanically ventilated, rhonchi on L. HEART: Tachycardic ABDOMEN: nontender, distented, hypoactive bowel sounds LOWER EXTREMITIES: Cool to touch feet. R femoral line in place. NEUROLOGICAL: Sedated. No gag reflex. PSYCHIATRIC: Sedated. SKIN: Warm, dry, normal turgor, no rashes or lesions noted. Laboratory Results - last 24 hr 11/29/16 11/29/16 11/29/16 05:15 05:15 07:00 WBC 19.5 H D RBC 2.94 L Hgb 8.5 L Hct 25.5 L MCV 86.9 MCHC 33.1 RDW 15.2 Plt Count 177 D MPV 8.1 Neutrophils % 82.0 Lymphocytes % 6.0 L D Band Neutrophils 12.0 H D Puncture Site Left radial ABG pH 7.12 L* ABG pCO2 at Pt Temp 36.6 D ABG pO2 at Pt Temp 161.0 H* ABG HCO3 11.3 L* ABG O2 Sat (Measured) 98.7 ABG O2 Content 11.5 L ABG Base Excess -16.7 L* Linden Test Positive O2 Delivery Device Mec.vent Oxygen Flow Rate 90% Vent Mode A/c Vent Rate 16 Mechanical Rate Esprit PEEP 5.0 Pressure Support Vent 425 Sodium 122 L* Potassium 5.3 H Chloride 91 L Carbon Dioxide 14 L Anion Gap 17 H BUN 61 H Creatinine 4.2 H Creat Clearance w eGFR 13.49 Random Glucose 79 D Calcium 5.6 L* Phosphorus 5.5 H D Magnesium 1.1 L Total Bilirubin 0.5 D AST 75 H ALT 31 Alkaline Phosphatase 75 D Total Protein 3.8 L Albumin 1.4 L Microbiology 11/26/16 05:30 Blood - Peripheral Venous Blood Culture - Preliminary NO GROWTH OBTAINED AFTER 72 HOURS, INCUBATION TO CONTINUE FOR 2 DAYS. 11/26/16 05:30 Blood - Peripheral Venous Blood Culture - Preliminary NO GROWTH OBTAINED AFTER 72 HOURS, INCUBATION TO CONTINUE FOR 2 DAYS. 11/27/16 15:00 Urine - Urine Mattson Urine Culture - Final Contaminated: Please Repeat 11/26/16 06:45 Urine - Urine Mattson Urine Culture - Final Contaminated: Please Repeat 11/26/16 07:30 Nasopharyngeal Swab Respiratory Virus Panel - Preliminary 11/26/16 07:30 Nasopharyngeal Swab Influenza Types A,B Antigen (BEATRIZ) - Final 11/26/16 07:30 Nasopharyngeal Swab - Final Active Medications Generic Name Dose Route Start Last Admin Trade Name Freq PRN Reason Stop Dose Admin Acetaminophen 1,000 mg 11/26/16 07:27 Ofirmev Injection - IVPB ONCE PRN FEVER Chlorhexidine Gluconate 1 applic 11/26/16 22:00 11/28/16 22:45 Hibiclens For Decolonization - TP 1 applic HS NATHALIA Administration Fentanyl 500 mcg/ Dextrose 100 mls @ 5 mls/hr 11/26/16 07:00 11/29/16 06:24 IJ 9 mls/hr TITR NATHALIA Administration 25 MCG/HR Phenylephrine HCl 20,000 mcg/ 250 mls @ 75 mls/hr 11/26/16 20:30 11/29/16 07:30 Sodium Chloride IVPB 75 mls/hr ASDIR NATHALIA Administration Protocol 100 MCG/MIN Pantoprazole Sodium 100 mls @ 200 mls/hr 11/27/16 11:30 11/28/16 09:25 Protonix 40mg Ivpb (Pre-Docked) IVPB 200 mls/hr DAILY NATHALIA Administration Norepinephrine Bitartrate 8, 500 mls @ 18.75 mls/hr 11/27/16 21:11 11/29/16 08: 30 000 mcg/ Dextrose IV 112.5 mls/hr TITR NATHALIA Administration Protocol 5 MCG/MIN Dextrose/Sodium Chloride 1,000 mls @ 100 mls/hr 11/28/16 11:00 11/29/16 10:33 D5-Ns - IV 100 mls/hr ASDIR NATHALIA Administration Doripenem 250 mg/ Dextrose 100 mls @ 100 mls/hr 11/29/16 10:00 IVPB BID NATHALIA Insulin Aspart 1 vial 11/26/16 18:15 11/29/16 06:22 Novolog Vial Sliding Scale - SQ Not Given Q6HPO [facility] Protocol Lorazepam 1 mg 11/28/16 17:07 Ativan Injection - IVPUSH Q6H PRN AGITATION Morphine Sulfate 2 mg 11/27/16 16:31 11/27/16 18:08 Morphine Injection - IVPUSH 2 mg Q3H PRN Administration PAIN Mupirocin 1 applic 11/26/16 10:00 11/29/16 10:32 Bactroban Ointment (For Decolonization) - NS 12/01/16 09:59 1 applic BID NATHALIA Administration ASSESSMENT/PLAN: 86 y/o M from [facility] w/PMH of DM, GI hemorrhage, ckd, dementia, anemia, suprapubic catheter presented to the ER due to being found unresponsive with O2 sat of 71%. -Severe sepsis secondary to UTI vs PNA -tachycardic -c/w doripenem as per ID -on levophed; phenylephrine; fluids changed to D5NS@ 100ml/hr -UA: 3+ LE, 856 WBC; hx of proteus and ESBL in urine in past -BCx(-) x 72hrs -UCx contaminated -f/u Resp Virus Panel -Rapid Flu negative -ID on board -Elevated Troponin -trops elevated most likely secondary to demand ischemia -Echo: LV nl size, LVSF nl, no regional wall abnormalities, mild TR, RVSP elevated at 30-40 mmHg, mild aortic sclerosis, mild aortic root dilatation, no pericardial effusion. -Acute Respiratory failure secondary to PNA / sepsis -CXR shows worsening congestive changes -on ventilator. sedated on midazolam and fentanyl -recommend decreasing FiO2 according to ABG pO2 at 161 -c/w doripenem -Anemia secondary to Upper GI bleed -coffee ground aspirate via NGT -Abd XR: Distended bowel. Possible small bowel or partial small obstruction. Abd XR ordered for today. -Hgb: 8.5 currently, no baseline available in charts -received 1 unit PRBC so far. -GI on board -Abd XR canceled as no further labs or imaging is to be done at this time. -TANESHA on CKD secondary to sepsis -BUN/Cr: 61/4.2 -No baseline Cr in charts -DM -Monitor BGMs -D5-NS@100ml/hr -HTN -hold anti-hypertensives (metoprolol tartrate 25 mg bid) in light of septic shock -FEN -D5-NS @ 100 ml/hr; -NPO -Dispo: -Monitor in ICU. -Code status DNR requested by daughter but due to co-guardianship further legal clarification needed, ethics, palliative on board. -Labs and imaging not to be done. -Prognosis is poor. Problem List - Problems (1) GI bleed Code(s): K92.2 - GASTROINTESTINAL HEMORRHAGE, UNSPECIFIED (2) Multiple drug resistant organism (MDRO) culture positive Code(s): Z16.24 - RESISTANCE TO MULTIPLE ANTIBIOTICS (3) Pneumonia Code(s): J18.9 - PNEUMONIA, UNSPECIFIED ORGANISM (4) Sepsis Code(s): A41.9 - SEPSIS, UNSPECIFIED ORGANISM Qualifiers: Sepsis type: sepsis due to unspecified organism Qualified Code(s): A41.9 - Sepsis, unspecified organism (5) Urinary tract infection Code(s): N39.0 - URINARY TRACT INFECTION, SITE NOT SPECIFIED Qualifiers: Urinary tract infection type: site unspecified Hematuria presence: without hematuria Qualified Code(s): N39.0 - Urinary tract infection, site not specified Visit type - Emergency Visit Emergency Visit: Yes ED Registration Date: 11/26/16 Care time: The patient presented to the Emergency Department on the above date and was hospitalized for further evaluation of their emergent condition. - New Patient This patient is new to me today: No - Critical Care Critical Care patient: Yes Total Critical Care Time (in minutes): 35 Critical Care Statement: The care of this patient involved high complexity decision making to prevent further life threatening deterioration of the patient 's condition and/or to evalute & treat vital organ system(s) failure or risk of failure.
[2016-11-29] MEDS: WATER IVPB SCH ×2 (11:40→21:35)
[2016-11-29] MEDS: DORIPENEM IVPB SCH ×2 (11:40→21:35)
[2016-11-29] MEDS: DEXTROSE 5% IVPB SCH ×2 (11:40→21:35)
[2016-11-29] MEDS: PANTOPRAZOLE SODIUM 100 ML IVPB SCH (12:58)
[2016-11-29] MEDS: CHLORHEXIDINE GLUCONATE 4% CLEANSER FOR DECOLONIZATION TP SCH (22:35)
[2016-11-30] MEDS: INSULIN SLIDING SCALE (NOVOLOG) 1 VIAL SQ SCH ×3 (00:17→11:25)
[2016-11-30] MEDS: FENTANYL INJECTION 500 MCG in DEXTROSE 5%-WATER - 90 ML IJ SCH ×4 (02:25→13:27)
[2016-11-30] MEDS: NOREPINEPHRINE BITARTRATE 8,000 MCG in DEXTROSE 5%-WATER - 492 ML IV SCH ×4 (03:08→14:47)
[2016-11-30] MEDS ORDERED: NOREPINEPHRINE BITARTRATE 4 MG/4 ML ML IV ONE ×7 (04:08→22:06)
[2016-11-30] MEDS ORDERED: PHENYLEPHRINE HCL 10 MG/1 ML SINGLE DOSE VIAL ONE ×7 (04:08→21:57)
[2016-11-30] MEDS: PHENYLEPHRINE HCL 20,000 MCG in SODIUM CHLORIDE 248 ML IVPB SCH ×4 (05:50→15:56)
--- NOTE | 2016-11-30 07:22 | PN ---
Progress Note (short form) - Note Progress Note: ID Preceeding note reviewed regarding compassionate weaning for today On Doripenem however in shock intubated and no urine output Selected Entries 11/30/16 11/30/16 00:00 06:32 Temperature 97.2 F L Pulse Rate 75 Respiratory 17 Rate Blood Pressure 75/53 Intubated NGT Abd distented firm Ext Anasarca upper and lower Microbiology 11/26/16 06:45 Urine - Urine Mattson Urine Culture - Final Contaminated: Please Repeat 11/26/16 05:30 Blood - Peripheral Venous Blood Culture - Preliminary Pending Organism Laboratory Tests 11/29/16 11/29/16 05:15 05:15 WBC 19.5 H D Hgb 8.5 L Hct 25.5 L Plt Count 177 D BUN 61 H Creatinine 4.2 H Assessment Sepsis syndrome with septic shock urosepsis pneumonia Blood culture probable contaminant Got Vanco previous Plan Compassionate weaning Eric KING Problem List - Problems (1) Pneumonia Code(s): J18.9 - PNEUMONIA, UNSPECIFIED ORGANISM (2) Sepsis Code(s): A41.9 - SEPSIS, UNSPECIFIED ORGANISM Qualifiers: Sepsis type: sepsis due to unspecified organism Qualified Code(s): A41.9 - Sepsis, unspecified organism (3) Urinary tract infection Code(s): N39.0 - URINARY TRACT INFECTION, SITE NOT SPECIFIED Qualifiers: Urinary tract infection type: site unspecified Hematuria presence: without hematuria Qualified Code(s): N39.0 - Urinary tract infection, site not specified (4) Multiple drug resistant organism (MDRO) culture positive Code(s): Z16.24 - RESISTANCE TO MULTIPLE ANTIBIOTICS
[2016-11-30] MEDS ORDERED: PT OWN MED DRAWER 7, Y5N ONE (08:30)
--- NOTE | 2016-11-30 08:55 | MSN ---
Progress Note (SOAP) - Subjective Chief Complaint: Found unresponsive with low O2 saturation History of Present Illness: Pt is unresponsive, HPI obtained from medical records. [place] overnight. Pt continues to be unresponsive, intubated, and sedated. Vent settings 425/16/80/5 saturating at 99%, and Tru 120mcg/hr, Levo 30mcg/hr, Fentanyl 50mcg/hr. Pt daughter/coguardian should be coming into the ICU this morning for compassionate weaning process. - Current Medications Current Medications: Active Medications Acetaminophen (Ofirmev Injection -) 1,000 mg IVPB ONCE PRN PRN Reason: FEVER Chlorhexidine Gluconate (Hibiclens For Decolonization -) 1 applic TP HS NATHALIA Last Admin: 11/29/16 22:35 Dose: 1 applic Fentanyl 500 mcg/ Dextrose 100 mls @ 5 mls/hr IJ TITR NATHALIA PRN Reason: 25 MCG/HR Last Admin: 11/30/16 06:31 Dose: Not Given Phenylephrine HCl 20,000 mcg/ (Sodium Chloride) 250 mls @ 75 mls/hr IVPB ASDIR NATHALIA; 100 MCG/MIN PRN Reason: Protocol Last Admin: 11/30/16 05:50 Dose: 86.25 mls/hr Pantoprazole Sodium (Protonix 40mg Ivpb (Pre-Docked)) 100 mls @ 200 mls/hr IVPB DAILY NATHALIA Last Admin: 11/29/16 12:58 Dose: 200 mls/hr Norepinephrine Bitartrate 8, (000 mcg/ Dextrose) 500 mls @ 18.75 mls/hr IV TITR NATHALIA; 5 MCG/MIN PRN Reason: Protocol Last Admin: 11/30/16 05:48 Dose: 113 mls/hr Dextrose/Sodium Chloride (D5-Ns -) 1,000 mls @ 100 mls/hr IV ASDIR NATHALIA Last Admin: 11/29/16 10:33 Dose: 100 mls/hr Doripenem 250 mg/ Dextrose 100 mls @ 100 mls/hr IVPB BID NATHALIA Last Admin: 11/29/16 21:35 Dose: 100 mls/hr Insulin Aspart (Novolog Vial Sliding Scale -) 1 vial SQ Q6HPO NATHALIA PRN Reason: Protocol Last Admin: 11/30/16 05:44 Dose: Not Given Lorazepam (Ativan Injection -) 1 mg IVPUSH Q6H PRN PRN Reason: AGITATION Morphine Sulfate (Morphine Injection -) 2 mg IVPUSH Q3H PRN PRN Reason: PAIN Last Admin: 11/27/16 18:08 Dose: 2 mg Mupirocin (Bactroban Ointment (For Decolonization) -) 1 applic NS BID NATHALIA Stop: 12/01/16 09:59 Last Admin: 11/29/16 22:34 Dose: 1 applic - Objective Vital Signs: Vital Signs Temperature 97.3 F L 11/30/16 08:17 Pulse Rate 70 11/30/16 08:17 Respiratory Rate 20 11/30/16 08:17 Blood Pressure 76/49 11/30/16 08:17 O2 Sat by Pulse Oximetry (%) 90 L 11/29/16 22:00 HENT: Yes: Atraumatic, Normocephalic Neck: Yes: Supple, Trachea Midline Cardiovascular: Yes: Regular Rate and Rhythm, S1, S2. No: JVD Respiratory: Yes: Intubated, Mechanically Ventilated, Rhonchi (L>R), Tachypnea Gastrointestinal: Yes: Abdomen, Obese, Distention, Hypoactive Bowel Sounds (No bowel sounds present 4/4 quadrants). No: Normal Bowel Sounds Genitourinary: Yes: Meraz Present (suprapubic and meraz), Oliguria (20 ml urine produced last 24hrs) Extremities: Yes: Cool, Delayed Capillary Refill, Pallor Peripheral Pulses WNL: No (No LE pulses palpated) Peripheral Pulses: Left Radial: 1+, Right Radial: 1+ Edema: Yes (3+ edema in BL LE) Edema: LLE: 3+, RLE: 3+ Neurological: Yes: Unresponsive, Other (sedated on vent). No: WNL, Alert, Oriented Labs Lab Results: CBC, BMP 11/29/16 05:15 11/29/16 05:15 Problem List - Problems (1) GI bleed Code(s): K92.2 - GASTROINTESTINAL HEMORRHAGE, UNSPECIFIED (2) Pneumonia Code(s): J18.9 - PNEUMONIA, UNSPECIFIED ORGANISM (3) Sepsis Code(s): A41.9 - SEPSIS, UNSPECIFIED ORGANISM Qualifiers: Sepsis type: sepsis due to unspecified organism Qualified Code(s): A41.9 - Sepsis, unspecified organism (4) Suprapubic catheter dysfunction Code(s): T83.018A - BREAKDOWN (MECHANICAL) OF OTHER URINARY CATHETER, INIT Qualifiers: Encounter type: initial encounter Qualified Code(s): T83.018A - Breakdown (mechanical) of other indwelling urethral catheter, initial encounter (5) Urinary tract infection Code(s): N39.0 - URINARY TRACT INFECTION, SITE NOT SPECIFIED Qualifiers: Urinary tract infection type: site unspecified Hematuria presence: without hematuria Qualified Code(s): N39.0 - Urinary tract infection, site not specified Assessment/Plan Pt is an 86 yo M with PMHx including DM, dementia, suprapubic bladder catheter with recurrent UTIs, GI bleed, and anemia. Currently in the ICU for management of septic shock secondary to UTI vs. HCAP, with associated respiratory failure and metabolic acidosis in the setting of lactic acidosis. 1. Septic shock with MOF -Likely secondary to HCAP vs. UTI (Hx of ESBL sensitive to Zosyn) -IV ABX (azithromycin, zosyn, vancomycin) given in the ER -ID consult appreciated -Urine Cx X2 were contaminated. Pt likely colonized -Blood Cx showed no growth after 48 hrs -Resp. virus panel pending -Zosyn and vancomycin started on 11/26/16 -Vanco level 8.869 (11/27/16) -Repeat Vanco level in AM -CV support with IVF (LRs 100mls/hr), pressors (Phenylephrine 100mcg/hr, Levophed 100mcg/hr) -BPs stable since yesterday withy systolic in the 50-70s 2. Respiratory failure -Cont. mechanical ventilation in order to maintain O2 sat >94% -Current vent settings: 425 TV, 16 Rate, 100% FiO2, +5 PEEP -FiO2 can be decreased as most recent ABG shows PaO2 of 144 -Vent management per ICU team 3. Metabolic acidosis -Secondary to lactic acidosis from septic shock -Cont. IVF to volume resuscitate, LRs running at 100 mls/hr -Monitor BUN/Cr -Monitor BMP, replete electrolytes as needed -Trend lactic acid -Repeat ABG in AM 4. Demand ischemia -Likely secondary to septic shock -Cont. to trend troponins -ECHO performed, report reviewed. Nml LV systolic fxn, increased RV pressure (30 -40) 5. GI bleed -GI consult appreciated -Cont. NGT to LWS -Protonix 40mg IVPB -2 units PRBCs ordered, 1 unit issued, transfuse PRN -Hgb stable for now -Plan is CT abd once medically stable 6. Hypoglycemia -Most recent BMP shows glucose of 55 -Pt NPO since admission -Switch LRs to D5LR to replenish glucose 7. Hypocalcemia -Corrected calcium of 7.9 -Replenish to achieve calcium of 8.5 8. Hypomagnesemia -Replenish with Mg IV 9. Hyponatremia -Monitor 10. Poor overall prognosis -Palliative care and ethics consult appreciated Dustin Duncan, MS3
[2016-11-30] MEDS: WATER IVPB SCH ×2 (10:08→22:15)
[2016-11-30] MEDS: DORIPENEM IVPB SCH ×2 (10:08→22:15)
[2016-11-30] MEDS: DEXTROSE 5%-NORMAL SALINE 1,000 ML IV SCH (10:08)
[2016-11-30] MEDS: PANTOPRAZOLE SODIUM 100 ML IVPB SCH (10:08)
[2016-11-30] MEDS: DEXTROSE 5% IVPB SCH ×2 (10:08→22:15)
[2016-11-30] MEDS: MUPIROCIN 2% TOPICAL OINTMENT FOR DECOLONIZATION NS SCH ×2 (10:42→22:15)
--- NOTE | 2016-11-30 10:44 | PN ---
Physical Exam: SUBJECTIVE: Patient seen and examined at bedside. Pt is intubated, on vent, sedated. OBJECTIVE: Vital Signs Temperature 97.3 F L 11/30/16 08:17 Pulse Rate 64 11/30/16 10:05 Respiratory Rate 20 11/30/16 08:17 Blood Pressure 60/28 11/30/16 10:05 O2 Sat by Pulse Oximetry (%) 97 11/30/16 09:06 GENERAL: Sedated, on ventilator HEAD: Normal with no signs of trauma. BG EYES: Pupils not reactive to light. LUNGS: Auscultated anteriorly, mechanically ventilated, rhonchi B/L. HEART: RRR ABDOMEN: nontender, distented, hypoactive bowel sounds LOWER EXTREMITIES: Cool to touch feet. R femoral line in place. NEUROLOGICAL: Sedated. No gag reflex. PSYCHIATRIC: Sedated. SKIN: Warm, dry, normal turgor, no rashes or lesions noted. Laboratory Results - last 24 hr 11/27/16 11/27/16 11/27/16 11:59 18:05 23:28 POC Glucometer 185.46882 163.72382 138.28548 11/28/16 11/28/16 11/28/16 06:10 12:23 17:08 POC Glucometer 97.95791 124.91187 139.42248 11/29/16 11/29/16 11/29/16 00:32 05:18 12:56 POC Glucometer 129.75307 133.20355 123.87747 11/29/16 11/29/16 11/30/16 18:08 23:56 05:26 POC Glucometer 128.34714 135.50589 175.49219 Microbiology 11/26/16 05:30 Blood - Peripheral Venous Blood Culture - Preliminary Pending Organism 11/26/16 05:30 Blood - Peripheral Venous Blood Culture - Preliminary NO GROWTH OBTAINED AFTER 96 HOURS, INCUBATION TO CONTINUE FOR 1 DAYS. 11/27/16 15:00 Urine - Urine [place] Urine Culture - Final Contaminated: Please Repeat 11/26/16 06:45 Urine - Urine [place]son Urine Culture - Final Contaminated: Please Repeat 11/26/16 07:30 Nasopharyngeal Swab Respiratory Virus Panel - Preliminary 11/26/16 07:30 Nasopharyngeal Swab Influenza Types A,B Antigen (BEATRIZ) - Final 11/26/16 07:30 Nasopharyngeal Swab - Final Active Medications Generic Name Dose Route Start Last Admin Trade Name Freq PRN Reason Stop Dose Admin Acetaminophen 1,000 mg 11/26/16 07:27 Ofirmev Injection - IVPB ONCE PRN FEVER Chlorhexidine Gluconate 1 applic 11/26/16 22:00 11/29/16 22:35 Hibiclens For Decolonization - TP 1 applic HS NATHALIA Administration Fentanyl 500 mcg/ Dextrose 100 mls @ 5 mls/hr 11/26/16 07:00 11/30/16 06:31 IJ Not Given TITR NATHALIA 25 MCG/HR Phenylephrine HCl 20,000 mcg/ 250 mls @ 75 mls/hr 11/26/16 20:30 11/30/16 10:03 Sodium Chloride IVPB 90 mls/hr ASDIR NATHALIA Administration Protocol 100 MCG/MIN Pantoprazole Sodium 100 mls @ 200 mls/hr 11/27/16 11:30 11/30/16 10:08 Protonix 40mg Ivpb (Pre-Docked) IVPB 200 mls/hr DAILY NATHALIA Administration Norepinephrine Bitartrate 8, 500 mls @ 18.75 mls/hr 11/27/16 21:11 11/30/16 10: 05 000 mcg/ Dextrose IV 113 mls/hr TITR NATHALIA Administration Protocol 5 MCG/MIN Dextrose/Sodium Chloride 1,000 mls @ 100 mls/hr 11/28/16 11:00 11/30/16 10:08 D5-Ns - IV 100 mls/hr ASDIR NATHALIA Administration Doripenem 250 mg/ Dextrose 100 mls @ 100 mls/hr 11/29/16 10:00 11/30/16 10:08 IVPB 100 mls/hr BID NATHALIA Administration Insulin Aspart 1 vial 11/26/16 18:15 11/30/16 05:44 Novolog Vial Sliding Scale - SQ Not Given Q6HPO NATHALIA Protocol Lorazepam 1 mg 11/28/16 17:07 Ativan Injection - IVPUSH Q6H PRN AGITATION Morphine Sulfate 2 mg 11/27/16 16:31 11/27/16 18:08 Morphine Injection - IVPUSH 2 mg Q3H PRN Administration PAIN Mupirocin 1 applic 11/26/16 10:00 11/29/16 22:34 Bactroban Ointment (For Decolonization) - NS 12/01/16 09:59 1 applic BID NATHALIA Administration ASSESSMENT/PLAN: 86 y/o M from [facility] w/PMH of DM, GI hemorrhage, ckd, dementia, anemia, suprapubic catheter presented to the ER due to being found unresponsive with O2 sat of 71%. -Plan for compassionate weaning today, no labs or imaging to be done. -Severe sepsis secondary to UTI vs PNA -c/w doripenem as per ID -on levophed; phenylephrine; fluids changed to D5NS@ 100ml/hr -UA: 3+ LE, 856 WBC; hx of proteus and ESBL in urine in past -BCx(-) x 96hrs -UCx contaminated -f/u Resp Virus Panel -Rapid Flu negative -ID on board -Elevated Troponin -trops elevated most likely secondary to demand ischemia -Echo: LV nl size, LVSF nl, no regional wall abnormalities, mild TR, RVSP elevated at 30-40 mmHg, mild aortic sclerosis, mild aortic root dilatation, no pericardial effusion. -Acute Respiratory failure secondary to PNA / sepsis -on ventilator. sedated on midazolam and fentanyl -c/w doripenem -Anemia secondary to Upper GI bleed -coffee ground aspirate via NGT -Abd XR: Distended bowel. Possible small bowel or partial small obstruction. Abd XR ordered for today. -Hgb: 8.5 currently, no baseline available in charts -received 1 unit PRBC so far. -GI on board -TANESHA on CKD secondary to sepsis -No baseline Cr in charts -DM -Monitor BGMs -D5-NS@100ml/hr -HTN -hold anti-hypertensives (metoprolol tartrate 25 mg bid) in light of septic shock -FEN -D5-NS @ 100 ml/hr; -NPO -Dispo: -Monitor in ICU. -DNR -Labs and imaging not to be done. -Prognosis is poor. -Plan for compassionate weaning today. Problem List - Problems (1) GI bleed Code(s): K92.2 - GASTROINTESTINAL HEMORRHAGE, UNSPECIFIED (2) Multiple drug resistant organism (MDRO) culture positive Code(s): Z16.24 - RESISTANCE TO MULTIPLE ANTIBIOTICS (3) Pneumonia Code(s): J18.9 - PNEUMONIA, UNSPECIFIED ORGANISM (4) Sepsis Code(s): A41.9 - SEPSIS, UNSPECIFIED ORGANISM Qualifiers: Sepsis type: sepsis due to unspecified organism Qualified Code(s): A41.9 - Sepsis, unspecified organism (5) Urinary tract infection Code(s): N39.0 - URINARY TRACT INFECTION, SITE NOT SPECIFIED Qualifiers: Urinary tract infection type: site unspecified Hematuria presence: without hematuria Qualified Code(s): N39.0 - Urinary tract infection, site not specified Visit type - Emergency Visit Emergency Visit: Yes ED Registration Date: 11/26/16 Care time: The patient presented to the Emergency Department on the above date and was hospitalized for further evaluation of their emergent condition. - New Patient This patient is new to me today: No - Critical Care Critical Care patient: Yes Total Critical Care Time (in minutes): 35 Critical Care Statement: The care of this patient involved high complexity decision making to prevent further life threatening deterioration of the patient 's condition and/or to evalute & treat vital organ system(s) failure or risk of failure.
--- NOTE | 2016-11-30 11:15 | PN ---
Teaching Attending Note Name of Resident: Dale Chowdhury ATTENDING PHYSICIAN STATEMENT I saw and evaluated the patient. I reviewed the resident's note and discussed the case with the resident. I agree with the resident's findings and plan as documented. SUBJECTIVE:intubated OBJECTIVE: Last Vital Signs Temp Pulse Resp BP Pulse Ox 97.3 F L 64 20 60/28 97 11/30/16 08:17 11/30/16 10:05 11/30/16 08:17 11/30/16 10:05 11/30/16 09:06 Intake & Output 11/27/16 11/28/16 11/29/16 11/30/16 23:59 23:59 23:59 23:59 Intake Total 9212.5 7402 5273 3636 Output Total 1190 990 530 220 Balance 8022.5 6412 4743 3416 Weight 181 lb 10.574 oz 194 lb 14.218 oz 209 lb 7.026 oz 210 lb 11.2 oz General intubated, no gag reflex or corneal reflex CV S1 S2 + Lungs course breath sounds diffusely Abdomen fim distended, no BS, tympanic Extremities 2+ pitting edema ASSESSMENT AND PLAN: 86yr old man with PMHx including DM, dementia, PEG tube (now reversed), suprapubic bladder catheter with recurrent UTIs, GI bleed and anemia presented to the ER and was admitted for further evaluation of their emergent condition 1 Septic shock with multiorgan dysfunction- due to UTI and possible aspiration PNA. remains on 2 pressors, with po titrate to maintain MAP >60. continues to have lactic acidosis. abx switched to doripenem. contact precautions 2. no improvement in medical condition. no chance of meaninful recovery. palliative care discussion with guardians as pt lacks the ability to make his own decisions. plan for compassionate weaning today. The care of this patient involved high complexity decision making to prevent further life threatening deterioration of the patient's condition and/or to evaluate & treat vital organ system(s) failure or risk of failure. critical care time 38 minutes
--- NOTE | 2016-11-30 13:07 | PN ---
Teaching Attending Note Name of Resident: Noam Bloom ATTENDING PHYSICIAN STATEMENT I saw and evaluated the patient. I reviewed the resident's note and discussed the case with the resident. I agree with the resident's findings and plan as documented. SUBJECTIVE: Patient seen and examined at bedside in ICU. Remains intubated. AC mode of vent, 80% FiO2. NE and Phenylephrine for hemodynamic support. OBJECTIVE: Intake & Output 11/27/16 11/28/16 11/29/16 11/30/16 23:59 23:59 23:59 23:59 Intake Total 9212.5 7402 5273 3636 Output Total 1190 990 530 220 Balance 8022.5 6412 4743 3416 Weight 181 lb 10.574 oz 194 lb 14.218 oz 209 lb 7.026 oz 210 lb 11.2 oz Last Vital Signs Temp Pulse Resp BP Pulse Ox 97.3 F L 75 29 H 78/54 95 11/30/16 12:18 11/30/16 12:18 11/30/16 12:18 11/30/16 12:18 11/30/16 10:25 Active Medications Acetaminophen (Ofirmev Injection -) 1,000 mg IVPB ONCE PRN PRN Reason: FEVER Chlorhexidine Gluconate (Hibiclens For Decolonization -) 1 applic TP HS NATHALIA Last Admin: 11/29/16 22:35 Dose: 1 applic Fentanyl 500 mcg/ Dextrose 100 mls @ 5 mls/hr IJ TITR NATHALIA PRN Reason: 25 MCG/HR Last Admin: 11/30/16 06:31 Dose: Not Given Phenylephrine HCl 20,000 mcg/ (Sodium Chloride) 250 mls @ 75 mls/hr IVPB ASDIR NATHALIA; 100 MCG/MIN PRN Reason: Protocol Last Admin: 11/30/16 10:03 Dose: 90 mls/hr Pantoprazole Sodium (Protonix 40mg Ivpb (Pre-Docked)) 100 mls @ 200 mls/hr IVPB DAILY NATHALIA Last Admin: 11/30/16 10:08 Dose: 200 mls/hr Norepinephrine Bitartrate 8, (000 mcg/ Dextrose) 500 mls @ 18.75 mls/hr IV TITR NATHALIA; 5 MCG/MIN PRN Reason: Protocol Last Admin: 11/30/16 10:05 Dose: 113 mls/hr Dextrose/Sodium Chloride (D5-Ns -) 1,000 mls @ 100 mls/hr IV ASDIR NATHALIA Last Admin: 11/30/16 10:08 Dose: 100 mls/hr Doripenem 250 mg/ Dextrose 100 mls @ 100 mls/hr IVPB BID [facility] Last Admin: 11/30/16 10:08 Dose: 100 mls/hr Insulin Aspart (Novolog Vial Sliding Scale -) 1 vial SQ Q6HPO NATHALIA PRN Reason: Protocol Last Admin: 11/30/16 11:25 Dose: Not Given Lorazepam (Ativan Injection -) 1 mg IVPUSH Q6H PRN PRN Reason: AGITATION Morphine Sulfate (Morphine Injection -) 2 mg IVPUSH Q3H PRN PRN Reason: PAIN Last Admin: 11/27/16 18:08 Dose: 2 mg Mupirocin (Bactroban Ointment (For Decolonization) -) 1 applic NS BID [facility] Stop: 12/01/16 09:59 Last Admin: 11/30/16 10:42 Dose: 1 applic GENERAL: Sedated, on ventilator HEAD: Normal with no signs of trauma. EYES: Pupils not reactive to light. LUNGS: mechanically ventilated, bilateral course rhonchi HEART: Tachycardic ABDOMEN: distended, hypoactive bowel sounds LOWER EXTREMITIES: Cool to touch feet. R femoral line in place. NEUROLOGICAL: poorly responsive, No gag reflex. SKIN: (+) mottling noted Laboratory Results - last 24 hr 11/27/16 11/27/16 11/27/16 11:59 18:05 23:28 POC Glucometer 185.91761 163.91034 138.87369 11/28/16 11/28/16 11/28/16 06:10 12:23 17:08 POC Glucometer 97.65100 124.60278 139.86890 11/29/16 11/29/16 11/29/16 00:32 05:18 12:56 POC Glucometer 129.56872 133.46160 123.34425 11/29/16 11/29/16 11/30/16 18:08 23:56 05:26 POC Glucometer 128.81156 135.83954 175.81793 Problem List - Problems (1) GI bleed Code(s): K92.2 - GASTROINTESTINAL HEMORRHAGE, UNSPECIFIED (2) Multiple drug resistant organism (MDRO) culture positive Code(s): Z16.24 - RESISTANCE TO MULTIPLE ANTIBIOTICS (3) Pneumonia Code(s): J18.9 - PNEUMONIA, UNSPECIFIED ORGANISM (4) Sepsis Code(s): A41.9 - SEPSIS, UNSPECIFIED ORGANISM Qualifiers: Sepsis type: sepsis due to unspecified organism Qualified Code(s): A41.9 - Sepsis, unspecified organism (5) Urinary tract infection Code(s): N39.0 - URINARY TRACT INFECTION, SITE NOT SPECIFIED Qualifiers: Urinary tract infection type: site unspecified Hematuria presence: without hematuria Qualified Code(s): N39.0 - Urinary tract infection, site not specified ASSESSMENT AND PLAN: Acute Hypoxic Respiratory Failure UTI Suspected Pneumonia Septic Shock Multiorgan Dysfunction Acute Kidney Injury Lactic Acidosis Coagulopathy r/o Small Bowel Obstruction r/o Ischemic Bowel Suprapubic Catheter Hyponatremia Dementia - I agree with the consultants and ethics/palliative input. The patient has progressive multiorgan failure with no indication of recovery despite aggressive care. Further aggressive medical care would be futile and would not alter his grave outcome. In fact further aggressive care would not cause increased suffering. In the Interim: - IVF - continue OGT to ILWS - continue discussions regarding goals of care, recommend palliative/comfort measures -> Withdrawal of care and comfort care would be appropriate in this setting. It is my understanding from the team that the patient's designated guardians are in agreement that the best course of action would be for compassionate extubation today. Dr Garnett CCTime 35"
--- NOTE | 2016-11-30 13:58 | PN ---
GI Progress Note Subjective: GI NOte: Chart notes appreciated. The patient remains unresponsive and hypotensive. NG output minimal but abdomen is still distended. - Objective Vital Signs: Vital Signs Temperature 97.3 F L 11/30/16 12:18 Pulse Rate 74 11/30/16 13:26 Respiratory Rate 29 H 11/30/16 12:18 Blood Pressure 77/53 11/30/16 13:26 O2 Sat by Pulse Oximetry (%) 95 11/30/16 10:25 Constitutional: Other (Comatose) Gastrointestinal Inspection: Yes: Distention ...Auscultate: Yes: Hypoactive Bowel Sounds ...Palpate: Yes: Soft, Other (no tenderness elicited) Labs: CBC, BMP 11/29/16 05:15 11/29/16 05:15 INR, PTT INR 1.36 (0.82-1.09) H 11/28/16 05:15 Assessment/Plan Ileus in the setting of suspected septic shock,hypotension, renal failure, coma and multiorgan failure. Cannot exclude a GI catastrophe or ischemia. Will honor DNR and provide NG suctioning to minimize distension. Prognosis poor.
--- NOTE | 2016-11-30 14:36 | PN ---
Physical Exam: SUBJECTIVE: Patient seen and examined at bedside in ICU. Nonverbal, non communicative, intubated at present. Discussed comfort measure/compassionate weaning with family. Decision to come later today. OBJECTIVE: Vital Signs Period Temp Pulse Resp BP Sys/[place] Pulse Ox Last 24 Hr 97.2 F-97.3 F 63-97 17-32 60-78/28-60 90-97 GENERAL: Sedated, on ventilator HEAD: Normal with no signs of trauma. BG EYES: Pupils not reactive to light. LUNGS: Auscultated anteriorly, mechanically ventilated, rhonchi B/L. HEART: RRR ABDOMEN: nontender, distented, hypoactive bowel sounds LOWER EXTREMITIES: Cool to touch feet. R femoral line in place. NEUROLOGICAL: Sedated. No gag reflex. PSYCHIATRIC: Sedated. SKIN: Warm, dry, normal turgor, no rashes or lesions noted. Laboratory Results - last 24 hr 11/27/16 11/27/16 11/27/16 11:59 18:05 23:28 POC Glucometer 185.29830 163.28546 138.09278 11/28/16 11/28/16 11/28/16 06:10 12:23 17:08 POC Glucometer 97.51150 124.09342 139.92198 11/29/16 11/29/16 11/29/16 00:32 05:18 12:56 POC Glucometer 129.66403 133.11732 123.80741 11/29/16 11/29/16 11/30/16 18:08 23:56 05:26 POC Glucometer 128.07042 135.67228 175.79004 Active Medications Generic Name Dose Route Start Last Admin Trade Name Freq PRN Reason Stop Dose Admin Acetaminophen 1,000 mg 11/26/16 07:27 Ofirmev Injection - IVPB ONCE PRN FEVER Chlorhexidine Gluconate 1 applic 11/26/16 22:00 11/29/16 22:35 Hibiclens For Decolonization - TP 1 applic HS NATHALIA Administration Fentanyl 500 mcg/ Dextrose 100 mls @ 5 mls/hr 11/26/16 07:00 11/30/16 13:27 IJ 10 mls/hr TITR NATHALIA Administration 25 MCG/HR Phenylephrine HCl 20,000 mcg/ 250 mls @ 75 mls/hr 11/26/16 20:30 11/30/16 13:26 Sodium Chloride IVPB 90 mls/hr ASDIR NATHALIA Administration Protocol 100 MCG/MIN Pantoprazole Sodium 100 mls @ 200 mls/hr 11/27/16 11:30 11/30/16 10:08 Protonix 40mg Ivpb (Pre-Docked) IVPB 200 mls/hr DAILY NATHALIA Administration Norepinephrine Bitartrate 8, 500 mls @ 18.75 mls/hr 11/27/16 21:11 11/30/16 10: 05 000 mcg/ Dextrose IV 113 mls/hr TITR NATHALIA Administration Protocol 5 MCG/MIN Dextrose/Sodium Chloride 1,000 mls @ 100 mls/hr 11/28/16 11:00 11/30/16 10:08 D5-Ns - IV 100 mls/hr ASDIR NATHALIA Administration Doripenem 250 mg/ Dextrose 100 mls @ 100 mls/hr 11/29/16 10:00 11/30/16 10:08 IVPB 100 mls/hr BID NATHALIA Administration Insulin Aspart 1 vial 11/26/16 18:15 11/30/16 11:25 Novolog Vial Sliding Scale - SQ Not Given Q6HPO NATHALIA Protocol Lorazepam 1 mg 11/28/16 17:07 Ativan Injection - IVPUSH Q6H PRN AGITATION Morphine Sulfate 2 mg 11/27/16 16:31 11/27/16 18:08 Morphine Injection - IVPUSH 2 mg Q3H PRN Administration PAIN Mupirocin 1 applic 11/26/16 10:00 11/30/16 10:42 Bactroban Ointment (For Decolonization) - NS 12/01/16 09:59 1 applic BID NATHALIA Administration ASSESSMENT/PLAN: Pt is an 86yr old man with PMHx including DM, dementia, PEG tube (now reversed) , suprapubic bladder catheter with recurrent UTIs, GI bleed and anemia. Now in the ICU for management of septic shock with associated respiratory failure secondary to HCAP, and metabolic acidosis in setting of TANESHA. As per discussion with family, weaning off ventilator/comfort measures, possibly later today. #Septic Shock secondary to UTI/PNA (HCA) -ID Consulted -continue Doripenem -no more labs or imaging to be performed, as per family -continue ventilator support -continue pressors -continue fentanyl gtt for pain control-titrate up for comfort #CVS -holding antihypertensives -D5-1/2NS for nutrition #GI -protonix being given (SBO vs. Ischemic bowel due to hypotension) -surgery consult noted and appreciated no intervention at this time #DM: -BGM q6h -ISS Visit type - Emergency Visit Emergency Visit: Yes ED Registration Date: 11/26/16 Care time: The patient presented to the Emergency Department on the above date and was hospitalized for further evaluation of their emergent condition. - New Patient This patient is new to me today: Yes Date on this admission: 11/30/16 - Critical Care Critical Care patient: Yes Total Critical Care Time (in minutes): 45 Critical Care Statement: The care of this patient involved high complexity decision making to prevent further life threatening deterioration of the patient 's condition and/or to evalute & treat vital organ system(s) failure or risk of failure.
[2016-11-30] MEDS ORDERED: HEMOQUE TEST 1 EACH EACH ONE (16:50)
[2016-11-30 20:31] VITALS: TEMP 97
[2016-11-30] MEDS: CHLORHEXIDINE GLUCONATE 4% CLEANSER FOR DECOLONIZATION TP SCH (22:15)
--- NOTE | 2016-12-01 00:38 | HOSP ---
Subjective - Review of Symptoms Events since last encounter: RN called to notify that patient is DNR and was found unresponsive, not breathing and has no pulse rate. on examination patient has no spontaneous breathing HR- 0 corneal reflex absent, pupil :dilated and fixed. patient has cardiopulmonary arrest and was pronounce at 11: 58pm daughter of patient was notified Physical Examination Vital Signs: Vital Signs Temperature 97 F L 11/30/16 20:31 Pulse Rate 32 L 11/30/16 22:00 Respiratory Rate 22 11/30/16 22:04 Blood Pressure 39/23 11/30/16 22:00 O2 Sat by Pulse Oximetry (%) 95 11/30/16 20:19 Labs: CBC, BMP 11/29/16 05:15 11/29/16 05:15 Visit type - Emergency Visit Emergency Visit: Yes ED Registration Date: 11/26/16 Care time: The patient presented to the Emergency Department on the above date and was hospitalized for further evaluation of their emergent condition. - New Patient This patient is new to me today: Yes Date on this admission: 12/01/16 - Critical Care Critical Care patient: Yes Total Critical Care Time (in minutes): 20
[2016-12-01 01:09] VITALS: BP 0/0; PULSE 0
--- NOTE | 2016-12-03 14:04 | DS ---
Physical Exam: OBJECTIVE: Vital Signs Temperature 97 F L 11/30/16 20:31 Pulse Rate 0 L 11/30/16 23:58 Respiratory Rate 0 L 11/30/16 23:58 Blood Pressure 0/0 11/30/16 23:58 O2 Sat by Pulse Oximetry (%) 95 11/30/16 20:19 LABS HOSPITAL COURSE: Date of Admission:11/26/16 Date of Discharge: 12/03/16 86 y/o M from formerly [facility] w/PMH of DM, GI hemorrhage, ckd, dementia, anemia, suprapubic catheter presented to the ER due to being found unresponsive with O2 sat of 71%. Pt's suprapubic cath was clogged as per [place]. Pt used O2 at [place] continously (2-3L/min). Pt was last noted to be alert and responsive at 4 am last night. Currently pt is in ICU, intubated, sedated, and on ventilator, on pressors. In ER pt had CXR which showed LLL infiltrates, NGT placed which drained coffee ground emesis, IV protonix started. Pt was admitted to ICU. Pt was treated with vanco, zosyn initially and eventually daptomycin. Pt was also on pressors, levophed and phenylephrine. Pts prognosis throughout hospitalization remained poor as pt's blood pressure remained mostly in the systolic 70s despite being on two pressors and physical exam revealed no gag reflex and pupils were dilated and fixed - showing signs of brain . During stay pt was established to be DNR and to be compassionately weaned by his daughter who was his co-guardian. Pt's blood pressure continued to drop but pressors were not uptitrated due to impending compassionate wean. Pt went into asystole at 11:58 pm on Dec 01, 2015 and pronounced from septic shock at this time by Dr. Marucs (resident). Minutes to complete discharge: 36 Discharge Summary Reason For Visit: GASTROINTESTINAL HEMORRHAGE, ACUTE RESPIRATORY ROSA Condition: Critical - Instructions Referrals: Abdulaziz Jon [Primary Care Provider] - Disposition: - Home Medications Comprehensive Discharge Medication List: Ambulatory Orders Acetaminophen [Tylenol -] 650 mg PO Q6H PRN 11/26/16 Ascorbic Acid [Vitamin C -] 500 mg PO DAILY 11/26/16 Bisac-Evac 10 mg [place] DAILY PRN 11/26/16 Calcium Carbonate [Calcium] 1,250 mg PO BID 11/26/16 Econazole Nitrate 1% [Spectazole 1%] 1 applic TP BID 11/26/16 Ferrous Sulfate 325 mg PO DAILY 11/26/16 Magnesium Hydroxide [Milk of Magnesia -] 30 ml PO DAILY PRN 11/26/16 Metoprolol Tartrate 25 mg PO BID 11/26/16 Nitroglycerin Sublingual [Nitrostat -] 0.4 mg SL PRN PRN 11/26/16 Olanzapine 5 mg PO 0900,1300 11/26/16 Olanzapine [Zyprexa -] 5 mg PO 1700,2100 11/26/16 Omeprazole 1 cap PO 0630,1630 11/26/16 Oxybutynin Chloride [Oxybutynin Chloride ER] 10 mg PO DAILY 11/26/16 Polyethylene Glycol 3350 [Miralax 119 gm Btl -] 17 grams PO DAILY PRN 11/26/16 Problem List - Problems (1) GI bleed Code(s): K92.2 - GASTROINTESTINAL HEMORRHAGE, UNSPECIFIED (2) Multiple drug resistant organism (MDRO) culture positive Code(s): Z16.24 - RESISTANCE TO MULTIPLE ANTIBIOTICS (3) Pneumonia Code(s): J18.9 - PNEUMONIA, UNSPECIFIED ORGANISM (4) Sepsis Code(s): A41.9 - SEPSIS, UNSPECIFIED ORGANISM Qualifiers: Sepsis type: sepsis due to unspecified organism Qualified Code(s): A41.9 - Sepsis, unspecified organism (5) Urinary tract infection Code(s): N39.0 - URINARY TRACT INFECTION, SITE NOT SPECIFIED Qualifiers: Urinary tract infection type: site unspecified Hematuria presence: without hematuria Qualified Code(s): N39.0 - Urinary tract infection, site not specified This patient is new to me today: No Emergency Visit: Yes ED Registration Date: 11/26/16 Care time: The patient presented to the Emergency Department on the above date and was hospitalized for further evaluation of their emergent condition. Critical Care patient: Yes Total Critical Care Time (in minutes): 36 Critical Care Statement: The care of this patient involved high complexity decision making to prevent further life threatening deterioration of the patient 's condition and/or to evalute & treat vital organ system(s) failure or risk of failure. - Discharge Referral Referred to [facility] No
== END 2016-11-30 11:58 | disposition expired | DRG 870 ==
LOC: JER 04:56 → JERBED 06:30 → JICU 07:33
PROVIDERS: ADMIT Internal Medicine; ATTEND Internal Medicine
PROC: 5A1955Z Respiratory Ventilation, Greater than 96 Consecutive Hours (ICD-10-PCS; principal; 2016-11-26)
PROC: 0BH17EZ Insertion of Endotracheal Airway into Trachea, Via Natural or Artificial Opening (ICD-10-PCS; 2016-11-26)
PROC: 30233N1 Transfusion of Nonautologous Red Blood Cells into Peripheral Vein, Percutaneous Approach (ICD-10-PCS; 2016-11-26)
PROC: 06HM33Z Insertion of Infusion Device into Right Femoral Vein, Percutaneous Approach (ICD-10-PCS; 2016-11-26)
DX: A41.9 Sepsis, unspecified organism (principal); J18.9 Pneumonia, unspecified organism; R65.21 Severe sepsis with septic shock; J96.00 Acute respiratory failure, unspecified whether with hypoxia or hypercapnia; N17.9 Acute kidney failure, unspecified; E87.2 Acidosis; N39.0 Urinary tract infection, site not specified; K92.2 Gastrointestinal hemorrhage, unspecified; I24.8 Other forms of acute ischemic heart disease; K56.0 Paralytic ileus; E87.1 Hypo-osmolality and hyponatremia; Y95 Nosocomial condition; I95.9 Hypotension, unspecified; F03.90 Unspecified dementia, unspecified severity, without behavioral disturbance, psychotic disturbance, mood disturbance, and anxiety; E11.22 Type 2 diabetes mellitus with diabetic chronic kidney disease; Z79.4 Long term (current) use of insulin; I12.9 Hypertensive chronic kidney disease with stage 1 through stage 4 chronic kidney disease, or unspecified chronic kidney disease; N18.9 Chronic kidney disease, unspecified; N31.9 Neuromuscular dysfunction of bladder, unspecified; K42.9 Umbilical hernia without obstruction or gangrene; E83.42 Hypomagnesemia; E83.39 Other disorders of phosphorus metabolism; Z66 Do not resuscitate; Z16.24 Resistance to multiple antibiotics
CPT/HCPCS: 36415; 36430; 36600; 71010-TC; 74000-TC; 80053; 81003; 81015; 82247; 82375; 82550; 82553; 82803; 83050; 83605; 83735; 84100; 84484; 85025; 85027; 85610; 85730; 86850; 86900; 86901; 86922; 87040; 87086; 87254; 87804; 93005; 93010; 93306-TC; 94002; 99284-25; G0008; G0480; P9038; P9058; Q2037